=== PATIENT | male | born 1990 ===

== ENCOUNTER 2021-01-09 11:04 | Emergency (ER) | payer OTHER, SELFPAY ==
[2021-01-09 11:55] VITALS: BP 154/101; PULSE 74; RESP 18; TEMP 36.6; O2SAT 97; BMI 32.8
--- NOTE | 2021-01-09 11:58 | ED_ITS ---
HPI - Abdominal Pain General Chief Complaint: Back Pain/Injury Stated Complaint: kidney pain Time Seen by Provider: 01/09/21 11:56 Source: patient Mode of arrival: ambulatory Limitations: no limitations Related Data Allergies Allergy/AdvReac Type Severity Reaction Status Date / Time No Known Allergies Allergy Verified 01/09/21 11:55 Physical Exam Vital Signs: Vital Signs: Last Vital Signs Temp 97.9 F 01/09/21 11:55 Pulse 74 01/09/21 11:55 Resp 18 01/09/21 11:55 BP 154/101 H 01/09/21 11:55 Pulse Ox 97 01/09/21 11:55 Body Mass Index 32.8 [facility] Past Medical History Medical History (Updated 01/09/21 @ 11:57 by Mary Butler) Patient denies medical problems
[2021-01-09 13:11] LABS: Glucose Urine UA NEG (NEG); Leukocyte Esterase Urine NEG (NEG); Nitrite Urine NEG (NEG); Specific Gravity - Urine >= 1.030 (1.005-1.025); Urine Blood NEG (NEG); Urine Ketones NEG (NEG); Urine Protein TRACE MG/DL (NEG-TRACE)
[2021-01-09 13:12] LABS: Appearance Urine HAZY; Color Urine YELLOW
[2021-01-09] MEDS: Ketorolac Tromethamine 60 MG/2 ML VIAL IM (13:28)
--- NOTE | 2021-01-09 13:39 | ED.BACK ---
HPI - Back Pain/Injury General Chief Complaint: Back Pain/Injury Stated Complaint: kidney pain Time Seen by Provider: 01/09/21 11:56 Source: patient Mode of arrival: ambulatory Limitations: no limitations History of Present Illness HPI Narrative: 30 yo male here with right lower back pain x 4 days. No injury or trauma. No nausea, vomiting, diarrhea, urinary symptoms. No fevers or chills. Related Data Previous Rx's Medication Instructions Recorded cyclobenzaprine 10 mg PO TID PRN #10 tab 01/09/21 lidocaine [Lidoderm] 1 patch TOPICAL DAILY #15 ea 01/09/21 naproxen 500 mg PO BID PRN #20 tab 01/09/21 Allergies Allergy/AdvReac Type Severity Reaction Status Date / Time No Known Allergies Allergy Verified 01/09/21 11:55 Review of Systems Review of Systems: Yes all other systems are reviewed and are negative Constitutional: Constitutional: Reports no additional constitutional complaints, Denies body ache(s), Denies chills, Denies fever(s), Denies headache(s) and Denies weakness Eyes: Eyes: Reports no additional eye complaints and Denies change in vision ENT: Reports system reviewed and no additional complaints, except as documented, Denies dizziness, Denies headache(s), Denies nasal congestion, Denies nasal discharge and Denies neck pain Cardiovascular: Cardiovascular: Reports no additional cardiovascular complaints, Denies chest pain, Denies leg edema and Denies dyspnea Respiratory: Respiratory: Reports no additional respiratory complaints, Denies cough and Denies dyspnea Gastrointestinal: Gastrointestinal: Reports no additional gastrointestinal complaints, Denies abdominal pain, Denies diarrhea, Denies nausea and Denies vomiting Genitourinary: Genitourinary: Denies urinary incontinence Musculoskeletal: Musculoskeletal: Reports no additional musculoskeletal complaints, Reports back pain, Denies arthralgias, Denies joint swelling, Denies neck pain, Denies numbness and Denies tingling Integumentary/Breasts: Skin/Breast: Reports system reviewed and no additional complaints, except as docu and Denies rash Neurologic: Reports system reviewed and no additional complaints, except as documented, Denies Abnormal speech present, Denies dizziness, Denies headache(s), Denies numbness, Denies tingling and Denies weakness [facility] Past Medical History Attestation statement: The following information was validated with the patient. Source: old records reviewed and nursing notes reviewed Medical History Patient denies medical problems Social History Social History Advance Directives: No Advance Directives Information Provided: Yes Physical Exam Vital Signs: Vital Signs: Last Vital Signs Temp 97.9 F 01/09/21 11:55 Pulse 74 01/09/21 11:55 Resp 18 01/09/21 11:55 BP 154/101 H 01/09/21 11:55 Pulse Ox 97 01/09/21 11:55 Body Mass Index 32.8 Const: General: cooperative, healthy appearing, comfortable and no acute distress Orientation/consciousness: patient oriented x3 Limitations: no limitations HENMT: Head: Yes normal to inspection Ears: hearing grossly normal bilaterally General nose exam: Normal external nose present Face and sinus: Yes normal facial exam Mouth: Normal oral and palatal mucosa present Throat: Yes posterior oropharynx normal Eyes: General: appearance normal, both eyes and all related structures Pupils: Equal, round and reactive pupils present Neck: Neck: Yes normal visual inspection Chest: Chest palpation & inspection: normal inspection of the chest Resp: Effort & Inspection: normal respiratory effort Auscultation: clear to auscultation bilaterally Cardio: Rate: regular rate Rhythm: regular rhythm Peripheral pulses: Peripheral pulses 2+ throughout GI: Inspection: Yes normal to inspection Palpation (GI): Soft to palpation and nontender Auscultation: normal bowel sounds Back/Spine/Pelvis: Other: Right lumbar soft tissue tenderness with no midline tenderness, step-offs or deformities. No CVA tenderness. Pain is worsened with flexion and extension of the lumbar spine. Thoracic/Lumbar Spine: thoracic and lumbar spine normal to inspection Skin: General skin exam: no rashes or lesions noted Neuro: General: patient oriented x3, no focal motor deficits and normal sensation to monofilament Cranial nerves: Yes CN's II-XII intact bilaterally, Yes Equal, round and reactive pupils present, Yes Bilaterally intact EOM present, Yes Nystagmus not present and Yes Normal facial strength present Cognition (Neuro): normal cognition Speech: No Abnormal speech present Gait exam (Neuro): Normal gait present Motor exam (neuro): 5/5 motor strength present throughout Sensory Exam: Normal double simultaneous stimulation for sensation Deep tendon reflexes (DTR's): Right patellar reflex intensity grade: 2+ and Left patellar reflex intensity grade: 2+ Coordination: [id number] test normal and [id number] test normal Extrem: General: Yes normal to inspection Course Course Course Narrative: 30-year-old male here with complaints of right lower back pain x4 days with no injury or trauma. No incontinence, numbness or tingling, fevers or chills. No CVAT. Will check UA. -UA negative. Likely lumbar strain. Patient medicated with Toradol with improvement of pain. Will send home with analgesia, supportive care and follow-up with primary care. Reviewed worrisome signs and symptoms of when to return to the emergency department. Comfortable discharge home. MDM - Back Pain/Injury Lab Data Labs: Lab Results 01/09/21 Range/Units 12:51 Urine Color YELLOW Urine Appearance HAZY Urine pH 6.0 (5.0-8.0) Ur Specific [place] >= 1.030 H (1.005-1.025) Urine Protein TRACE (NEG-TRACE) MG/DL Urine Glucose (UA) NEG (NEG) MG/DL Urine Ketones NEG (NEG) MG/DL Urine Blood NEG (NEG) Urine Nitrite NEG (NEG) Ur Leukocyte Esterase NEG (NEG) Discharge Plan Discharge Clinical Impression: Strain of lumbar region Patient Disposition: Home, Self-Care Instructions: Low Back Strain (ED), Lower Back Exercises (ED) Additional Instructions: Heat or ice Gentle stretching No heavy lifting or bending Follow-up with primary care doctor in 5-7 days for persistent pain Prescriptions: New cyclobenzaprine 10 mg tablet 10 mg PO TID PRN (Reason: muscle spasm) Qty: 10 RF: 0 lidocaine [Lidoderm] 5 % adhesive patch,medicated 1 patch topical DAILY Qty: 15 RF: 0 naproxen 500 mg tablet 500 mg PO BID PRN (Reason: pain) Qty: 20 RF: 0 Referrals: Physician,Unknown [Primary Care Provider] - 5 days (for persistent pain) Interventions: ED Discharge Assessment Last Done: 01/09/21 13:32 Discharge Date/Time: 01/09/21 13:33
== END 2021-01-09 13:33 | disposition home or self-care (01) ==
PROVIDERS: Emergency Provider Emergency Medicine
DX: S39.012A Strain of muscle, fascia and tendon of lower back, initial encounter (principal); X58.XXXA Exposure to other specified factors, initial encounter; Y93.9 Activity, unspecified; Y92.9 Unspecified place or not applicable; Y99.9 Unspecified external cause status
CPT/HCPCS: 81003; 96372; 99283; 99284; J1885

== ENCOUNTER 2022-05-10 18:34 | Emergency (ER) | payer OTHER, SELFPAY ==
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
[2022-05-10 19:20] VITALS: BP 174/104; PULSE 76; RESP 18; TEMP 36.1; O2SAT 97; BMI 33.5
== END 2022-05-10 23:48 | disposition left against medical advice (07) ==
PROVIDERS: Emergency Provider Emergency Medicine
DX: Z04.1 Encounter for examination and observation following transport accident (principal); R07.9 Chest pain, unspecified
CPT/HCPCS: 93005; 99283

== ENCOUNTER 2024-03-14 06:58 | Inpatient (IN) | payer OTHER, SELFPAY ==
[2024-03-14 07:04] VITALS: BP 182/105; PULSE 82; RESP 16; TEMP 37; O2SAT 98; BMI 30.9
[2024-03-14 07:16] VITALS: BP 182/110; PULSE 74; RESP 16; TEMP 37; O2SAT 98
--- NOTE | 2024-03-14 07:20 | ED_ITS ---
HPI - Psych General Chief Complaint: ETOH/Substance Use Stated Complaint: crisis Time Seen by Provider: 03/14/24 07:12 Source: patient Mode of arrival: ambulatory Limitations: no limitations History of Present Illness ED Provider: ALECIA HPI Narrative: 33 yo male with PMH of opiate abuse and cocaine abuse here with c/o depression no SI and wants to stop using drugs. Has no medical complaints. Has never been through this before states it is his first time. He hasn't slept in 3 days. He wants help with depression and drug abuse. He is crying. MD complaint: feels depressed and substance abuse Onset (ago): day(s) (few) Duration: constant History of same: Yes Relieving factors: none Exacerbating factors: drug use Context: recent drug abuse Associated psychiatric symptoms: depression Associated symptoms: denies other symptoms Treatments prior to arrival: none Related Data Previous Rx's ?Medication ?Instructions ?Recorded cyclobenzaprine 10 mg tablet 10 mg PO TID PRN muscle spasm #10 01/09/21 tabs lidocaine 5 % topical patch 1 patch topical DAILY #15 ea 01/09/21 (Lidoderm) naproxen 500 mg tablet 500 mg PO BID PRN pain #20 tabs 01/09/21 Allergies Allergy/AdvReac Type Severity Reaction Status Date / Time No Known Allergies Allergy Verified 03/14/24 07:10 Review of Systems 2 Review of Systems: Constitutional : No Fever, No Chills ENT/Mouth : No Ear Pain, No Nasal Congestion, No sore throat Eyes: No Eye Pain, No Swelling, No Redness Cardiovascular : No Chest Pain, No SOB Respiratory : No Cough, No Sputum, No Dyspnea Gastrointestinal : No Nausea, No Vomiting, No Diarrhea, No Hematochezia, No Melena Genitourinary : No Dysuria, No Urinary Frequency, No Hematuria Musculoskeletal : No Myalgias Skin : No Skin Lesions, No rash Neuro : No Weakness, No Numbness, No Paresthesias, No Dizziness, No Headache Psych : positive Anxiety, positive Depression, no SI/HI Heme/Lymph: No Lymphadenopathy Endocrine : No Polyuria, No Polydipsia All other systems reviewed and are negative PMFSH Past Medical History Attestation statement: The following information was validated with the patient. Source: old records reviewed Medical History Patient denies medical problems Social History Social History (Updated 03/14/24 @ 07:28 by Adilene Ojeda DO) Alcohol intake: current Alcohol intake frequency: 3 or more drinks per day Alcohol type: beer Patient Tobacco Use Status: Current someday Tobacco user Smoked in Last 30 Days: Yes Substance Use Type: Crack/Cocaine and Opiates Substance Use Frequency: Chronic Longstanding Last Used Substance: Just Prior to Admission Advance Directives: No Advance Directives Information Provided: Yes Physical Exam 2 Vital Signs: Vital Signs: Last Vital Signs Temp 98.6 F 03/14/24 07:16 Pulse 74 03/14/24 07:16 Resp 16 03/14/24 07:16 BP 182/110 H 03/14/24 07:16 Pulse Ox 98 03/14/24 07:16 O2 Del Method Room Air 03/14/24 07:16 BMI result Body Mass Index 30.9 Appearance: Alert. Oriented X3. No acute distress. Tearful Eyes: Pupils equal, round and reactive to light. ENT: Pharynx normal. Neck: Normal inspection. Neck supple. CVS: Normal heart rate and rhythm. Pulses normal. Respiratory: No respiratory distress. Breath sounds normal. Abdomen: Soft and nontender. Skin: Skin warm and dry. Normal skin color. Normal skin turgor. Extremities: No lower extremity edema. No calf ttp Neuro: Oriented X 3. No motor deficit. No sensory deficit. CN2-12 intact Medications Administered Generic Name Dose Route Start Last Admin Trade Name Freq PRN Reason Stop Dose Admin Lorazepam 2 mg 03/14/24 07:15 03/14/24 07:30 Lorazepam 1 Mg Tablet PO 2 mg Q3H PRN Administration Anxiety Medical Decision Making Medical Decision Making MDM Narrative: 33 yo male with PMH of of opiate and cocaine abuse here with c/o depression and drug abuse wants to talk to crisis he has no SI/HI he is voluntary will obtain labs and start on ativan PRN pending CARE team. Differential Diagnosis Differential Diagnoses: The differential diagnosis associated with the presentation includes drug abuse, depression Admission/Observation Consideration of admission/observation: Escalation of care including admission/observation considered physician observation started at 729am pending CARE team Lab Data MDM Lab Attestation statement: I reviewed the patient's lab results. 03/14/24 08:00 03/14/24 08:00 Labs: Lab Results 03/14/24 Range/Units 08:00 WBC 10.0 (4.8-10.8) X10*3/uL RBC 4.86 (4.60-5.80) X10*6/uL Hgb 15.5 (14.0-18.0) g/dl Hct 43.4 (42.0-52.0) % MCV 89.3 (80.0-98.0) fL MCH 31.9 (27.0-33.0) pg MCHC 35.7 (31.0-36.0) g/dl RDW 12.4 (11.0-16.0) % Plt Count 267 (160-400) X10*3/uL MPV 10.3 (9.4-12.4) fL Immature Gran % (Auto) 0.2 (0.0-0.4) % Neut % (Auto) 62.2 (45-73) % Lymph % (Auto) 27.4 (20-40) % [place] % (Auto) 7.9 (2-11) % Eos % (Auto) 1.8 (0-4) % Baso % (Auto) 0.5 (0-2) % Lymph # (Auto) 2.7 (1.2-4.9) X10*3/uL [place] # (Auto) 0.8 (0.1-1.2) X10*3/uL Eos # (Auto) 0.2 (0.0-0.4) X10*3/uL Baso # (Auto) 0.1 (0.0-0.2) X10*3/uL Abs Immat Gran (auto) 0.02 (0.00-0.03) X10*3/uL Absolute Neuts (auto) 6.2 (2.0-8.3) x10*3/uL Absolute Nucleated RBC 0.000 (0.0-0.012) X10*3/uL Nucleated RBC % (auto) 0.0 (0.0-0.2) /100WBC Sodium 139 (135-145) mmol/L Potassium 3.4 (3.3-5.1) mmol/L Chloride 106 (96-108) mmol/L Carbon Dioxide 24 (22-29) mmol/L Anion Gap 12 (12-20) BUN 11 (9-16) mg/dL Creatinine 1.14 (0.5-1.4) mg/dL Estim Creat Clear Calc 109.2 Estimated GFR > 60 Random Glucose 126 H (60-115) mg/dL Calcium 9.4 (8.4-10.2) mg/dL Total Bilirubin 0.7 (0.0-1.0) mg/dL Direct Bilirubin 0.2 (0.0-0.5) mg/dL AST 21 (5-37) U/L ALT 14 (0-40) U/L Alkaline Phosphatase 86 (39-117) U/L Total Protein 7.0 (6.5-8.0) g/dL Albumin 4.3 (3.5-5.0) g/dL Urine Color Yellow Urine Appearance Clear Urine pH 6.0 (5.0-9.0) Ur Specific [place] 1.020 (1.005-1.025) Urine Protein Trace (Neg-Trace) mg/dL Urine Glucose (UA) 100 H (Negative) mg/dL Urine Ketones Negative (Negative) mg/dL Urine Blood Negative (Negative) Urine Nitrite Negative (Negative) Ur Leukocyte Esterase Negative (Negative) Urine RBC 0-2 (0-2) /HPF Urine WBC 0-5 (0-5) /HPF Ur Squamous Epith Cells 0-2 (0-2) /HPF Urine Bacteria None Seen (None Seen) Hyaline Casts 0-2 (0-2) /LPF Urine Opiates Screen Not Detected (Not Detect) Ur Buprenorphine Scrn Positive H (Not Detect) ng/mL Ur Oxycodone Screen Not Detected (Not Detect) ng/mL Urine Methadone Screen Not Detected (Not Detect) ng/mL Urine Fentanyl Screen POSITIVE H (Not Detect) Ur Barbiturates Screen Not Detected (Not Detect) Ur Phencyclidine Scrn Not Detected (Not Detect) Ur Amphetamines Screen Not Detected (Not Detect) U Benzodiazepines Scrn Not Detected (Not Detect) Urine Cocaine Screen POSITIVE H (Not Detect) U Marijuana (THC) Screen POSITIVE H (Not Detect) Ethyl Alcohol < 10 mg/dL Independent Interpretation I performed an independent interpretation of an: EKG Interpretation: Rate: 65 Rhythm: NSR [place]: left, LVH Normal P waves. Normal YASMEEN. Normal QRS complex. ST T wave : no KIRIT, normal qTC: 524 prior studies: slightly prolonged qtc The study has been interpreted contemporaneously by me. . External Record Review External record reviewed: Outpatient record Discharge Plan Discharge Clinical Impression: Active substance abuse Depression Qualifiers: Depression Type: unspecified Qualified Code(s): F32.A - Depression, unspecified Patient Disposition: Admitted As Inpatient Print Language: Tajik
[2024-03-14] MEDS: LORazepam 1 MG TABLET 2 MG PO (07:30)
--- NOTE | 2024-03-14 07:32 | PC.NURSE ---
Pt comes to ED today with c/o ETOH and drug use along with difficulty managing his MH. He denies SI/HI or history of at this time. He reports using ETOH, cocaine, and percocets daily (including just prior to admission) to cope. Pt is A&Ox3 and cooperative. HTN noted, Pt is asymptomatic and he reports this is a baseline for him. Dr Ojeda notified. NAD at this time. Security notified for cell changer process.
[2024-03-14 08:04] LABS: MANUAL DIFF FLAG NO
[2024-03-14 08:08] LABS: Basophils Absolute Auto 0.1 X10*3/uL (0.0-0.2); Basophils Percent Auto 0.5 % (0-2); Eosinophils Absolute Auto 0.2 X10*3/uL (0.0-0.4); Eosinophils Percent Auto 1.8 % (0-4); Hematocrit 43.4 % (42.0-52.0); Hemoglobin 15.5 g/dl (14.0-18.0); Imm Gran Abs Auto 0.02 X10*3/uL (0.00-0.03); Imm Gran Pct Auto 0.2 % (0.0-0.4); Lymphocytes Absolute Auto 2.7 X10*3/uL (1.2-4.9); Lymphocytes Percent Auto 27.4 % (20-40); Mean Corpuscular HGB Conc 35.7 g/dl (31.0-36.0); Mean Corpuscular Hemoglobin 31.9 pg (27.0-33.0); Mean Corpuscular Volume 89.3 fL (80.0-98.0); Mean Platelet Volume 10.3 fL (9.4-12.4); Monocytes Absolute Auto 0.8 X10*3/uL (0.1-1.2); Monocytes Percent Auto 7.9 % (2-11); Neutrophils Absolute Auto 6.2 x10*3/uL (2.0-8.3); Neutrophils Percent Auto 62.2 % (45-73); Platelet Count 267 X10*3/uL (160-400); Red Blood Count 4.86 X10*6/uL (4.60-5.80); Red Cell Distribution Width 12.4 % (11.0-16.0)
[2024-03-14 08:16] LABS: Amphetamine Screen Urine Not Detected (Not Detect); Barbiturates, Urine Not Detected (Not Detect); Benzodiazepines Screen Urine Not Detected (Not Detect); Buprenorphine Scr Positive (Not Detect); Cannabinoid Screen Urine POSITIVE (Not Detect); Cocaine Screen Urine POSITIVE (Not Detect); Fentanyl, urine POSITIVE (Not Detect); Methadone Screen, Urine Not Detected (Not Detect); Opiate Screen Urine Not Detected (Not Detect); Oxycodone Screen Urine Not Detected (Not Detect); Phencyclidine Screen Urine Not Detected (Not Detect)
[2024-03-14 08:18] LABS: Appearance Urine Clear; Color Urine Yellow; Glucose Urine UA 100 mg/dL (Negative); Leukocyte Esterase Urine Negative (Negative); Nitrite Urine Negative (Negative); Urine Blood Negative (Negative); Urine Ketones Negative (Negative); Urine Protein Trace mg/dL (Neg-Trace)
[2024-03-14 08:23] LABS: Alanine Aminotransferase 14 U/L (0-40); Albumin Level 4.3 g/dL (3.5-5.0); Alkaline Phosphatase 86 U/L (39-117); Anion Gap 12 (12-20); Aspartate Amino Transferase 21 U/L (5-37); Bacteria Urine None Seen (None Seen); Bilirubin Direct 0.2 mg/dL (0.0-0.5); Bilirubin Total 0.7 mg/dL (0.0-1.0); Blood Urea Nitrogen 11 mg/dL (9-16); Calcium 9.4 mg/dL (8.4-10.2); Carbon Dioxide 24 mmol/L (22-29); Chloride 106 mmol/L (96-108); Creatinine Clr Calc Pharmacy 109.2; Estimated Glomerular Filt Rate > 60; Ethanol < 10 mg/dL; Glucose Random 126 mg/dL (60-115); Hyaline Casts Urine 0-2 /LPF (0-2); Potassium 3.4 mmol/L (3.3-5.1); RBC Urine 0-2 /HPF (0-2); Sodium 139 mmol/L (135-145); Squamous Epithelial Cell Urine 0-2 /HPF (0-2); WBC Urine 0-5 /HPF (0-5)
--- NOTE | 2024-03-14 10:13 | ECG_ITS ---
Test Reason : CHECK QT INTERVAL Blood Pressure : / mmHG Vent. Rate : 065 BPM Atrial Rate : 065 BPM P-R Int : 154 ms QRS Dur : 094 ms QT Int : 504 ms P-R-T Axes : 039 -09 026 degrees QTc Int : 524 ms Normal sinus rhythm Minimal voltage criteria for LVH, may be normal variant ( R in aVL ) Cannot rule out Inferior infarct , age undetermined Prolonged QT Abnormal ECG When compared to the previous EKG of 10 may 2022, QT prolonged. Referred By: Adilene Ojeda Electronically Signed By:DANIEL CARR
--- NOTE | 2024-03-14 12:00 | PC.NURSE ---
PT CAME OVER FROM 6h TO BH1, THIS NURSE TOOK OVER CARE AT 1145AM. PT A&O, AMBULATING INDEPENDENTLY, RR EQUAL/NON LABORED, PT INPT BEDSEARCH
[2024-03-14 14:25] VITALS: BP 188/116; PULSE 78; RESP 13; TEMP 36.6; O2SAT 98
[2024-03-14 14:44] VITALS: BP 188/116
[2024-03-14] MEDS: cloNIDine HCL 0.1 MG TABLET PO (14:44)
[2024-03-14 15:06] LABS: Magnesium 2.4 mg/dL (1.6-2.6)
[2024-03-14 15:37] LABS: Magnesium 2.5 mg/dL (1.6-2.6)
[2024-03-14 15:45] LABS: Troponin-I High Sensitivity 9.1 ng/L (<3.5-35.0)
[2024-03-14] MEDS: Potassium Chloride ER 20 MEQ TAB.ER.PRT PO (15:57)
[2024-03-14 16:08] VITALS: BP 138/78; PULSE 64; RESP 19; TEMP 36.7; O2SAT 97
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
[2024-03-14 17:48] VITALS: BP 142/93; PULSE 65; RESP 16; TEMP 36.8; O2SAT 98
[2024-03-14 17:49] VITALS: BMI 30.1
--- NOTE | 2024-03-14 19:22 | PC.NURSE ---
This is the 1st admission for this 33 y.o. male to [facility] at [facility]. Referred by [facility] Care Team with Dx of Unspecified Opioid Use Disorder, Cocaine Use Disorder, Severe, Unspecified Psychotic Disorder, Unspecified Depressive Disorder. Nurse to nurse done prior to admission with [facility] ED Pod. Conditional Voluntary signed after meeting with provider, Yolette Estrella. Arrived on unit at 1728 and placed on 15 min safety checks. Medical issues: HTN, prolonged QT. Tox screen positive for Buprenorphine, Fentanyl, Cocaine, Marijuana. ETOH <10. PT reports use of all meds listed and Percocet prescribed and from street. Reports daily ETOH use. Reports last substance and ETOH use this am at 0500 prior to coming into ED. Denies current withdrawal symptoms. Suboxone films found under sole of sneaker. Suboxone not prescribed. Reports he utilizes Suboxone to decrease AH. Precipitating events to admission: self presented to [facility] ED with report of depression substance use, cocaine and opiates. Initially denied SI/HI, reported passive SI when meeting with Care Team. Denies SI/HI at time of admission. Per crisis assessment pt reported paranoia at home believing people were coming to murder him and his family. Denies this at time of admission. Declined to report stressor to admission, but states he has one. Concerned upon admission to unit that there are people he knows from the streets here. States he wanted to be hospitalized out of states so he would not recognize anyone. Vague with responses, poor concentration, rested eyes frequently. Stated he had not slept in in 3 days. Reports 30 lb wt loss in 2 months. States this is due to cocaine use. Meds verified with [facility] pharmacy-not picked up and placed back on shelf on 03/06/24. [facility] unable to state last brain picker date; Mak Summers, prescriber, informed. No meds filled at [facility] since 09/2023.
[2024-03-15 07:00] VITALS: BMI 29.6
--- NOTE | 2024-03-15 07:00 | ECG_ITS ---
Test Reason : check qtc Blood Pressure : / mmHG Vent. Rate : 065 BPM Atrial Rate : 065 BPM P-R Int : 146 ms QRS Dur : 080 ms QT Int : 436 ms P-R-T Axes : 061 014 075 degrees QTc Int : 453 ms Normal sinus rhythm Nonspecific ST and T wave abnormality Abnormal ECG When compared with ECG of 14-MAR-2024 10:30, QT has shortened Referred By: Yolette Estrella Electronically Signed By:KOLBY BAKER
[2024-03-15 07:54] VITALS: BP 189/111; PULSE 58; RESP 18; TEMP 36.8; O2SAT 99
[2024-03-15] MEDS: cloNIDine HCL 0.1 MG TABLET PO ×2 (09:22→21:18)
[2024-03-15] MEDS: Thiamine HCL 100 MG TABLET PO (09:23)
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
[2024-03-15 11:41] VITALS: BP 170/93; PULSE 68
[2024-03-15 12:00] VITALS: PULSE 60
[2024-03-15] MEDS: LORazepam 1 MG TABLET PO ×2 (12:01→21:19)
--- NOTE | 2024-03-15 12:50 | HO.PSYCHPN ---
Subjective Subjective Date of Service: 03/15/24 Reason For Visit: Si Subjective Notes: Conditional Voluntary Healthcare Proxy: No Guardianship: No Medical Problems Affecting Mental Status: No Interim History: Pt is asleep when seen. He awakens easily, reports he would prefer to sleep. He presents without any distress and appears comfortable and confirms this when asked. Currently, he denies questions or concerns. Lorazepam ordered with CIWA today. Pt is hypertensive 189/111, 170/93 with earlier reports of chest pain, helped with clonidine, CIWA of 9. EKG vent rate 65, QTc [address]-T wave abn Medication Compliance: Yes Side effects from medications: No Attending Groups: No Review of Systems Monitoring BP Medical Review of Systems: unchanged Review of Systems Review of Systems Yes Unobtainable due to mental status Mental Status Exam Mental Status Exam Patient Appearance: Fatigued Patient Orientation: Person, Place and Situation Level of Consciousness: Drowsy and Sedated Patient Behavior: Talkative and Fatigued Mood Description: Calm Affect Description: Calm Patient Cognition Impaired: No Ability to Follow Directions: Fair Speech Pattern: Spontaneous Speech Hallucinations: None Delusions: Not Present Thought Content: positive for Covert and positive for Circumstantial Judgement: Fair Diagnostics Vital Signs (24Hr): Vital Signs - 24 hr 03/14/24 14:25 03/14/24 14:44 03/14/24 16:08 Temperature 97.9 F 98.1 F Pulse Rate 78 64 Respiratory Rate 13 19 Blood Pressure 188/116 H 188/116 H 138/78 Pulse Oximetry 98 97 Oxygen Delivery Method Room Air Room Air 03/14/24 17:48 03/15/24 07:54 03/15/24 11:41 Temperature 98.3 F 98.3 F Pulse Rate 65 58 68 Respiratory Rate 16 18 Blood Pressure 142/93 H 189/111 H 170/93 H Pulse Oximetry 98 99 Oxygen Delivery Method Room Air Room Air BMI result Body Mass Index 30.1 Labs 03/14/24 08:00 03/14/24 08:00 Labs: Laboratory Results - last 48 hr 03/14/24 03/14/24 03/14/24 08:00 14:54 14:55 WBC 10.0 RBC 4.86 Hgb 15.5 Hct 43.4 MCV 89.3 MCH 31.9 MCHC 35.7 RDW 12.4 Plt Count 267 MPV 10.3 Immature Gran % (Auto) 0.2 Neut % (Auto) 62.2 Lymph % (Auto) 27.4 [place] % (Auto) 7.9 Eos % (Auto) 1.8 Baso % (Auto) 0.5 Lymph # (Auto) 2.7 [place] # (Auto) 0.8 Eos # (Auto) 0.2 Baso # (Auto) 0.1 Abs Immat Gran (auto) 0.02 Absolute Neuts (auto) 6.2 Absolute Nucleated RBC 0.000 Nucleated RBC % (auto) 0.0 Sodium 139 Potassium 3.4 Chloride 106 Carbon Dioxide 24 Anion Gap 12 BUN 11 Creatinine 1.14 Estim Creat Clear Calc 109.2 Estimated GFR > 60 Random Glucose 126 H Calcium 9.4 Magnesium 2.4 2.5 Total Bilirubin 0.7 Direct Bilirubin 0.2 AST 21 ALT 14 Alkaline Phosphatase 86 Troponin I High Sens 9.1 Total Protein 7.0 Albumin 4.3 Urine Color Yellow Urine Appearance Clear Urine pH 6.0 Ur Specific [place] 1.020 Urine Protein Trace Urine Glucose (UA) 100 H Urine Ketones Negative Urine Blood Negative Urine Nitrite Negative Ur Leukocyte Esterase Negative Urine RBC 0-2 Urine WBC 0-5 Ur Squamous Epith Cells 0-2 Urine Bacteria None Seen Hyaline Casts 0-2 Urine Opiates Screen Not Detected Ur Buprenorphine Scrn Positive H Ur Oxycodone Screen Not Detected Urine Methadone Screen Not Detected Urine Fentanyl Screen POSITIVE H Ur Barbiturates Screen Not Detected Ur Phencyclidine Scrn Not Detected Ur Amphetamines Screen Not Detected U Benzodiazepines Scrn Not Detected Urine Cocaine Screen POSITIVE H U Marijuana (THC) Screen POSITIVE H Ethyl Alcohol < 10 Medications Medications Current Medications Acetaminophen (Acetaminophen 325 Mg Tablet) 1,000 mg PO Q6H PRN PRN Reason: Pain, Mild (Pain Scale 1-3) Al Hydroxide/Mg Hydroxide (Magnesium Hydrox/Alum Hydrox 30 Ml Oral.Susp) 30 ml PO Q6H PRN PRN Reason: Heartburn/Nausea Clonidine HCl (Clonidine Hcl 0.1 Mg Tablet) 0.1 mg PO BID [facility]; Protocol Last Admin: 03/15/24 09:22 Dose: 0.1 mg Cyclobenzaprine HCl (Cyclobenzaprine Hcl 10 Mg Tablet) 10 mg PO TID PRN PRN Reason: spasm Hydroxyzine HCl (Hydroxyzine Hcl 25 Mg Tablet) 25 mg PO Q6H PRN PRN Reason: Anxiety Ibuprofen (Ibuprofen 600 Mg Tablet) 600 mg PO Q6H PRN PRN Reason: Pain, Moderate(Pain Scale 4-6) Lorazepam (Lorazepam 1 Mg Tablet) 1 mg PO Q2H PRN PRN Reason: CIWA 6-10 Last Admin: 03/15/24 12:01 Dose: 1 mg Lorazepam (Lorazepam 1 Mg Tablet) 2 mg PO Q2H PRN PRN Reason: CIWA 11-16 Magnesium Hydroxide (Milk Of Magnesia 30 Ml Oral.Susp) 30 ml PO DAILY PRN PRN Reason: Constipation Nicotine (Nicotine 21 Mg Patch.Td24) 21 mg TRANSDERMA DAILY PRN PRN Reason: nicotine cravings Olanzapine (Olanzapine Odt 10 Mg Tab.Rapdis) 5 mg TRANSLINGU Q6H PRN PRN Reason: agitation or severe anxiety Thiamine HCl (Thiamine Hcl 100 Mg Tablet) 100 mg PO DAILY MERARY Last Admin: 03/15/24 09:23 Dose: 100 mg Trazodone HCl (Trazodone Hcl 50 Mg Tablet) 50 mg PO BEDTIME MRX1 PRN PRN Reason: Insomnia Allergies Allergies Allergy/AdvReac Type Severity Reaction Status Date / Time No Known Allergies Allergy Verified 03/14/24 07:10 Assessment & Plan Assessment & Plan (1) MDD (major depressive disorder), recurrent, severe, with psychosis: Status: Acute Code(s): F33.3 - Major depressive disorder, recurrent, severe with psychotic symptoms (2) Opioid use disorder, moderate, dependence: Status: Acute Code(s): F11.20 - Opioid dependence, uncomplicated (3) Cocaine use disorder, moderate, dependence: Status: Acute Code(s): F14.20 - Cocaine dependence, uncomplicated Plan Mr. Cohn is a 33 year-old male with hx of cocaine and opioid use disorder. He self presented to [facility] reporting increased substance use mainly cocaine and opioids. He does report some alcohol use 2 beers daily, but denies hx of alcohol withdrawal. This is his first inpatient psychiatric admission. It also appears that as substance use has increased, pt is now experiencing psychosis and paranoid- this may be transient and mostly substance induce although possibility of psychosis and delusions of becoming more permanent. Medical work up does show Qtc prolongation 514, K repleated but ideally to keep>4, Mg is 2.5. troponins were 9, he denies chest pain. His BP has also been quiet elevated SBP 180's suspect this mostly related to cocaine use rather than alcohol withdrawal. start clonidine 0.1mg po BID. Pt is interested in addiction medicine consult to discuss MAT. He reports he has never been on either buprenorphine nor methadone. PLAN 1. Admit to M3, CV, 15 minutes checks for safety 2. will not continue oxycodone here on the unit, but instead will wait for addiction medicine consult to recommend MAT 3. clonidine 0.1mg po BID; olanzapine 5mg po q6h prn agitationy, may want to consider scheduling antipsychotic if more consistent psychosis and delusinal content noted 4. obtain collateral information 5. aftercare planning. 03/15- Continue tx. EKG improved with clonidine Lorazepam CIWA, consider tapering 03/16. Reason for continued inpatient stay Substantial Risk for: rapid decompensation Time Spent With Patient Time: Total time managing care of this patient today ____ minutes.
--- NOTE | 2024-03-15 13:19 | MHC.CLN ---
RE: CONSULT HT WT 216# IBW 172#+/-10%, BMI 30.1 PT IS 126% IBW RANGE INDICATES OBESE FOR HT WT HX REVEALS: CURRENT 98KG (03/14/24) PREVIOUS WT 108KG (05/10/22) PT WITH 9% NONSIGNIFICANT WT LOSS X 2 YEARS PT REPORTED 30# WT LOSS IN 2 MONTHS AND STATED WT LOSS D/T COCAINE USE. PT DOES NOT APPEAR MALNOURISHED PT WITH POLYSUBSTANCE ABUSE (OPIOIDS, COCAINE, ETOH AND +FENTANYL) MAY BE CONTRIBUTOR TO WT LOSS REGULAR DIET IN PLACE PLAN: MONITOR PO INTAKE CLOSELY IF PO INTAKE <25% X3DAYS; RECOMMEND ADDING NUTRITION SUPPLEMENT PT IS OF LOW NUTRITION RISK AT THIS TIME
--- NOTE | 2024-03-15 14:58 | HO.ADDICT_ITS ---
History of Present Illness Date of Service: 03/15/2024 Chief Complaint: Si Reason for Consult: substance use Sources of Information: patient interviewed and chart reviewed HPI Narrative: Patient is a 33 year old male admitted to unit with worsening depression and suicidal ideation. Consult requested to address cocaine and opiate use. Patient seen on M3 with senior revenue accountant. Awake, alert, engaged in interview. Pressured speech, long winded and tangential. Requiring frequent redirection from t/w to answer questions. 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 He reports he has been using 1-2 8 balls of cocaine IN daily. Started using cocaine approx 8 months ago Also using fentanyl pressed pills -which he states are percocets, but knows they are actually pressed pills. Reports he started using percocet about 2 years ago after he fell 3 stories and was experiencing worsening pain. He bought percocet from someone who was prescribed them, then became nervous about getting in trouble so he started to buy pressed pills. He states he takes 3 10mg tabs orally every day, although over the last week, has been taking 30mg tabs. Denies any history of IVDU, or overdose. Denies any history of treatment including MAT, however [facility] shows that patient was prescribed Suboxone in 2021. At time of admission patient was found to have suboxone film(s) in his shoes. When asked how much he was taking and how often, he smiled and said he does't understand suboxone because he has never taken it before. UDS +bupe. Denies any history of precipitated withdrawal when he did take suboxone recently. Longest period with no opiate use is 4 days, then he resumes use due to body aches and joint pain. Reports 1-2 beers daily, and states that he is never intoxicated. Denies any history of alcohol withdrawal Denies any family history of substance use He is reporting desire for treatment and says several times during interview, if you are going to let me out after 3 days, don't even bother with your medicine because I am going to go back to the same thing . At time of interview he expressed desire to seek extended treatment for substance use. He denies any withdrawal sx, and appears comfortable during interview. Last use reported to be the day he presented to ED Past Psychiatric History: Inpt: none prior OP: none Past medication trial: denies Hx of suicide attempts: denies Review of Systems Constitutional: Reports as per HPI Diagnostics Vital Signs (24Hr): Vital Signs - 24 hr 03/14/24 16:08 03/14/24 17:48 03/15/24 07:54 Temperature 98.1 F 98.3 F 98.3 F Pulse Rate 64 65 58 Respiratory Rate 19 16 18 Blood Pressure 138/78 142/93 H 189/111 H Pulse Oximetry 97 98 99 Oxygen Delivery Method Room Air Room Air Room Air 03/15/24 11:41 Temperature Pulse Rate 68 Respiratory Rate Blood Pressure 170/93 H Pulse Oximetry Oxygen Delivery Method BMI result Body Mass Index 29.6 Labs 03/14/24 08:00 03/14/24 08:00 Labs: Laboratory Results - last 48 hr 03/14/24 03/14/24 03/14/24 08:00 14:54 14:55 WBC 10.0 RBC 4.86 Hgb 15.5 Hct 43.4 MCV 89.3 MCH 31.9 MCHC 35.7 RDW 12.4 Plt Count 267 MPV 10.3 Immature Gran % (Auto) 0.2 Neut % (Auto) 62.2 Lymph % (Auto) 27.4 [place] % (Auto) 7.9 Eos % (Auto) 1.8 Baso % (Auto) 0.5 Lymph # (Auto) 2.7 [place] # (Auto) 0.8 Eos # (Auto) 0.2 Baso # (Auto) 0.1 Abs Immat Gran (auto) 0.02 Absolute Neuts (auto) 6.2 Absolute Nucleated RBC 0.000 Nucleated RBC % (auto) 0.0 Sodium 139 Potassium 3.4 Chloride 106 Carbon Dioxide 24 Anion Gap 12 BUN 11 Creatinine 1.14 Estim Creat Clear Calc 109.2 Estimated GFR > 60 Random Glucose 126 H Calcium 9.4 Magnesium 2.4 2.5 Total Bilirubin 0.7 Direct Bilirubin 0.2 AST 21 ALT 14 Alkaline Phosphatase 86 Troponin I High Sens 9.1 Total Protein 7.0 Albumin 4.3 Urine Color Yellow Urine Appearance Clear Urine pH 6.0 Ur Specific [place] 1.020 Urine Protein Trace Urine Glucose (UA) 100 H Urine Ketones Negative Urine Blood Negative Urine Nitrite Negative Ur Leukocyte Esterase Negative Urine RBC 0-2 Urine WBC 0-5 Ur Squamous Epith Cells 0-2 Urine Bacteria None Seen Hyaline Casts 0-2 Urine Opiates Screen Not Detected Ur Buprenorphine Scrn Positive H Ur Oxycodone Screen Not Detected Urine Methadone Screen Not Detected Urine Fentanyl Screen POSITIVE H Ur Barbiturates Screen Not Detected Ur Phencyclidine Scrn Not Detected Ur Amphetamines Screen Not Detected U Benzodiazepines Scrn Not Detected Urine Cocaine Screen POSITIVE H U Marijuana (THC) Screen POSITIVE H Ethyl Alcohol < 10 Mental Status Exam Mental Status Exam Patient Appearance: Appropriate (hospital attire) Level of Consciousness: Awake and Alert Patient Behavior: Talkative and Cooperative Mood Description: Expansive Affect Description: Expansive Speech Pattern: Excessive, Animated and Pressured Medications Medications Current Medications Acetaminophen (Acetaminophen 325 Mg Tablet) 1,000 mg PO Q6H PRN PRN Reason: Pain, Mild (Pain Scale 1-3) Al Hydroxide/Mg Hydroxide (Magnesium Hydrox/Alum Hydrox 30 Ml Oral.Susp) 30 ml PO Q6H PRN PRN Reason: Heartburn/Nausea Clonidine HCl (Clonidine Hcl 0.1 Mg Tablet) 0.1 mg PO BID COUNTS INCLUDE 234 BEDS AT THE [facility]; Protocol Last Admin: 03/15/24 09:22 Dose: 0.1 mg Cyclobenzaprine HCl (Cyclobenzaprine Hcl 10 Mg Tablet) 10 mg PO TID PRN PRN Reason: spasm Hydroxyzine HCl (Hydroxyzine Hcl 25 Mg Tablet) 25 mg PO Q6H PRN PRN Reason: Anxiety Ibuprofen (Ibuprofen 600 Mg Tablet) 600 mg PO Q6H PRN PRN Reason: Pain, Moderate(Pain Scale 4-6) Lorazepam (Lorazepam 1 Mg Tablet) 1 mg PO Q2H PRN PRN Reason: CIWA 6-10 Last Admin: 03/15/24 12:01 Dose: 1 mg Lorazepam (Lorazepam 1 Mg Tablet) 2 mg PO Q2H PRN PRN Reason: CIWA 11-16 Magnesium Hydroxide (Milk Of Magnesia 30 Ml Oral.Susp) 30 ml PO DAILY PRN PRN Reason: Constipation Nicotine (Nicotine 21 Mg Patch.Td24) 21 mg TRANSDERMA DAILY PRN PRN Reason: nicotine cravings Olanzapine (Olanzapine Odt 10 Mg Tab.Rapdis) 5 mg TRANSLINGU Q6H PRN PRN Reason: agitation or severe anxiety Thiamine HCl (Thiamine Hcl 100 Mg Tablet) 100 mg PO DAILY COUNTS INCLUDE 234 BEDS AT THE [facility] Last Admin: 03/15/24 09:23 Dose: 100 mg Trazodone HCl (Trazodone Hcl 50 Mg Tablet) 50 mg PO BEDTIME MRX1 PRN PRN Reason: Insomnia Allergies Allergies Allergy/AdvReac Type Severity Reaction Status Date / Time No Known Allergies Allergy Verified 03/14/24 07:10 Assessment & Plan Assessment & Plan (1) Opioid use disorder, moderate, dependence: Status: Acute Code(s): F11.20 - Opioid dependence, uncomplicated Assessment and Plan: * not yet in withdrawal * COWS ordered q 4 hours * comfort medications as needed * will reassess in AM and start suboxone when appropriate (2) Cocaine use disorder, moderate, dependence: Status: Acute Code(s): F14.20 - Cocaine dependence, uncomplicated Assessment and Plan: * encouraged to rest/sleep * discussed stimulant withdrawal sx * senior revenue accountant to follow up in AM Total time managing care of this patient today __45__ minutes. [facility] Past Medical History Medical History Patient denies medical problems Social History Social History (Updated 03/14/24 @ 07:28 by Adilene Ojeda DO) Household Members: Spouse and Family Household Members Other:: , 2 sons, 3 daughters and 1 granddaughter Housing: House Do you presently have visiting nurse or other home services: No Alcohol intake: current Alcohol intake frequency: 3 or more drinks per day Alcohol type: beer Patient Tobacco Use Status: Current everyday Tobacco user Tobacco use type: Cigarette Cigarette Packs Per Day: 1 Cigarettes Per Day: 20.0 Years Smoked: 15 Smoked in Last 30 Days: Yes Patient Interested in Nicotine Replacement: Yes (patch and gum) Patient Given Instructions on How to Stop Smoking: No (declined) Second Hand Smoke Exposure: Yes (people who smoke around him) Use of substances other than those prescribed or required for medical reasons: Yes Substance Use Type: Crack/Cocaine and Marijuana Substance Use Type Other:: Percocet, Fentanyl, Buprenorphine Substance Use Frequency: Chronic Longstanding Last Used Substance: Hours (ago) Last Used Substance Other:: 0500 03/14/24 Currently Displaying Signs/Symptoms of Drug Intoxication Withdrawal: No Any prior treatment program specific to substance use: Yes Have you been hit, kicked, punched, or otherwise hurt by someone within the past year? If so, by whom?: No Do you feel safe in your current relationship?: Yes Is there a partner from a previous relationship who is making you feel unsafe now?: No Are you made to feel afraid or neglected: No Advance Directives: No Advance Directives Information Provided: Yes Do you have thoughts of harming others: None Do you have a plan to hurt others: No Plan Recently lost weight without trying: Yes How much weight loss: 24-33 pounds Eating poorly because of decreased appetite: No Nutrition screen score: 5 Nutrition Risks: No Nutritional Risk Poor oral hygiene: No service: No Sexual orientation: Straight/Heterosexual
[2024-03-15 16:00] VITALS: PULSE 62
[2024-03-15 20:00] VITALS: PULSE 66
[2024-03-15 21:00] VITALS: BP 160/90; PULSE 66; RESP 16; TEMP 36.4; O2SAT 98
[2024-03-15] MEDS: Cyclobenzaprine HCl 10 MG TABLET PO (21:18)
[2024-03-15] MEDS: traZODone HCL 50 MG TABLET PO (21:18)
[2024-03-15] MEDS: hydrOXYzine HCL 25 MG TABLET PO (21:18)
[2024-03-15] MEDS: Ibuprofen 600 MG TABLET PO (21:19)
[2024-03-16] VITALS (11 sets, daily range): BP systolic 142–188; BP diastolic 74–116; PULSE 60–77; RESP 12–16; TEMP 36.9; O2SAT 97–98
[2024-03-16] MEDS: cloNIDine HCL 0.1 MG TABLET PO ×2 (09:23→22:58)
[2024-03-16] MEDS: Thiamine HCL 100 MG TABLET PO (09:24)
[2024-03-16] MEDS: Folic Acid 1 MG TABLET PO (09:24)
[2024-03-16] MEDS: Multivitamin TABLET 1 TAB PO (09:24)
[2024-03-16] MEDS: LORazepam 1 MG TABLET PO ×3 (09:52→22:58)
--- NOTE | 2024-03-16 10:54 | PC.NURSE ---
Pt reported increased withdrawal symptoms this AM including headache, chills, and minor diaphoresis. Pt BP at 0820: 162/91. When RN rechecked BP at 0922, BP elevated to 182/116. Patient denied hypertensive symptoms including CP, SOB, dizziness, or worsening headache. CIWA score: 6. COWS: 3. RN administered 1mg Ativan PRN, per CIWA scale protocol. Pt also took 0.1mg Clonidine as scheduled. Provider notified of elevated blood pressure and medication. Upon recheck with manual cuff at 1040, BP decreased to 142/92.
--- NOTE | 2024-03-16 11:47 | HO.PSYCHPN ---
Subjective Subjective Date of Service: 03/16/24 Reason For Visit: Si Subjective Notes: Conditional Voluntary Healthcare Proxy: No Guardianship: No Medical Problems Affecting Mental Status: Yes (HTN) Interim History: Detox continues with HTN- 162/91;182/116;142/92; 188/107. Hospitalist consult requested for HTN mgt. P 60-68, CIWA 0-7, COWS 0-4. Pt resting, appears comfortable. Mid afternoon engaged per team report, wanting to interact with family and do a video call to see his daughter graduate. Medication Compliance: Yes Side effects from medications: No Review of Systems Acute medical concerns: Yes HTN, Hospitalist consult ordered Medical Review of Systems: changed Review of Systems: as noted Review of Systems Review of Systems deotxing Mental Status Exam Mental Status Exam Patient Appearance: Appropriate (hospital attire) Patient Orientation: Person, Place and Situation Level of Consciousness: Awake and Alert Patient Behavior: Talkative and Cooperative Mood Description: Withdrawn Affect Description: Flat Patient Cognition Impaired: No Ability to Follow Directions: Fair Speech Pattern: Spontaneous Speech Memory Description: Episodic Impaired Hallucinations: None Delusions: Not Present Thought Process: Goal Oriented Thought Content: positive for [place] and positive for Circumstantial Judgement: Fair Diagnostics Vital Signs (24Hr): Vital Signs - 24 hr 03/15/24 21:00 03/16/24 08:20 03/16/24 09:22 Temperature 97.6 F 98.4 F Pulse Rate 66 60 64 Respiratory Rate 16 12 16 Blood Pressure 160/90 H 162/91 H 182/116 H Pulse Oximetry 98 98 Oxygen Delivery Method Room Air Room Air 03/16/24 10:40 Temperature Pulse Rate 68 Respiratory Rate 16 Blood Pressure 142/92 H Pulse Oximetry Oxygen Delivery Method BMI result Body Mass Index 29.6 Labs 03/14/24 08:00 03/14/24 08:00 Labs: Laboratory Results - last 48 hr 03/14/24 03/14/24 03/14/24 08:00 14:54 14:55 Magnesium 2.4 2.5 Troponin I High Sens 9.1 Medications Medications Current Medications Acetaminophen (Acetaminophen 325 Mg Tablet) 1,000 mg PO Q6H PRN PRN Reason: Pain, Mild (Pain Scale 1-3) Al Hydroxide/Mg Hydroxide (Magnesium Hydrox/Alum Hydrox 30 Ml Oral.Susp) 30 ml PO Q6H PRN PRN Reason: Heartburn/Nausea Clonidine HCl (Clonidine Hcl 0.1 Mg Tablet) 0.1 mg PO BID [facility]; Protocol Last Admin: 03/16/24 09:23 Dose: 0.1 mg Cyclobenzaprine HCl (Cyclobenzaprine Hcl 10 Mg Tablet) 10 mg PO TID PRN PRN Reason: spasm Last Admin: 03/15/24 21:18 Dose: 10 mg Folic Acid (Folic Acid 1 Mg Tablet) 1 mg PO DAILY [facility] Last Admin: 03/16/24 09:24 Dose: 1 mg Hydroxyzine HCl (Hydroxyzine Hcl 25 Mg Tablet) 25 mg PO Q6H PRN PRN Reason: Anxiety Last Admin: 03/15/24 21:18 Dose: 25 mg Ibuprofen (Ibuprofen 600 Mg Tablet) 600 mg PO Q6H PRN PRN Reason: Pain, Moderate(Pain Scale 4-6) Last Admin: 03/15/24 21:19 Dose: 600 mg Lorazepam (Lorazepam 1 Mg Tablet) 1 mg PO Q2H PRN PRN Reason: CIWA 6-10 Last Admin: 03/16/24 09:52 Dose: 1 mg Lorazepam (Lorazepam 1 Mg Tablet) 2 mg PO Q2H PRN PRN Reason: CIWA 11-16 Magnesium Hydroxide (Milk Of Magnesia 30 Ml Oral.Susp) 30 ml PO DAILY PRN PRN Reason: Constipation Multivitamins/Vitamin C (Multivitamin Tablet) 1 tab PO DAILY [facility] Last Admin: 03/16/24 09:24 Dose: 1 tab Nicotine (Nicotine 21 Mg Patch.Td24) 21 mg TRANSDERMA DAILY PRN PRN Reason: nicotine cravings Olanzapine (Olanzapine Odt 10 Mg Tab.Rapdis) 5 mg TRANSLINGU Q6H PRN PRN Reason: agitation or severe anxiety Thiamine HCl (Thiamine Hcl 100 Mg Tablet) 100 mg PO DAILY [facility] Last Admin: 03/16/24 09:24 Dose: 100 mg Trazodone HCl (Trazodone Hcl 50 Mg Tablet) 50 mg PO BEDTIME MRX1 PRN PRN Reason: Insomnia Last Admin: 03/15/24 21:18 Dose: 50 mg Allergies Allergies Allergy/AdvReac Type Severity Reaction Status Date / Time No Known Allergies Allergy Verified 03/14/24 07:10 Assessment & Plan Assessment & Plan (1) MDD (major depressive disorder), recurrent, severe, with psychosis: Status: Acute Code(s): F33.3 - Major depressive disorder, recurrent, severe with psychotic symptoms (2) Opioid use disorder, moderate, dependence: Status: Acute Code(s): F11.20 - Opioid dependence, uncomplicated (3) Cocaine use disorder, moderate, dependence: Status: Acute Code(s): F14.20 - Cocaine dependence, uncomplicated Plan Mr. Cohn is a 33 year-old male with hx of cocaine and opioid use disorder. He self presented to [facility] ED reporting increased substance use mainly cocaine and opioids. He does report some alcohol use 2 beers daily, but denies hx of alcohol withdrawal. This is his first inpatient psychiatric admission. It also appears that as substance use has increased, pt is now experiencing psychosis and paranoid- this may be transient and mostly substance induce although possibility of psychosis and delusions of becoming more permanent. Medical work up does show Qtc prolongation 514, K repleated but ideally to keep>4, Mg is 2.5. troponins were 9, he denies chest pain. His BP has also been quiet elevated SBP 180's suspect this mostly related to cocaine use rather than alcohol withdrawal. start clonidine 0.1mg po BID. Pt is interested in addiction medicine consult to discuss MAT. He reports he has never been on either buprenorphine nor methadone. PLAN 1. Admit to M3, CV, 15 minutes checks for safety 2. will not continue oxycodone here on the unit, but instead will wait for addiction medicine consult to recommend MAT 3. clonidine 0.1mg po BID; olanzapine 5mg po q6h prn agitationy, may want to consider scheduling antipsychotic if more consistent psychosis and delusinal content noted 4. obtain collateral information 5. aftercare planning. 03/15- Continue tx. EKG improved with clonidine Lorazepam CIWA, consider tapering 03/16. 03/16- Detox continues Schedule Lorazepam- 1 mg bid x 48 hrs, then 1 mg qd x 24 hrs then re-eval Hospitalist consult-HTN Reason for continued inpatient stay Substantial Risk for: rapid decompensation and med/psych decompensation Time Spent With Patient Time: Total time managing care of this patient today ____ minutes.
[2024-03-16] MEDS: Cyclobenzaprine HCl 10 MG TABLET PO ×2 (15:52→22:59)
--- NOTE | 2024-03-16 16:09 | MHC.RECOVRN ---
Briefly met with pt this afternoon to assess for opioid withdrawal. Pt meeting with SW, sitting, awake, alert, easily engages in conversation. Pt appears comfortable, does not appear to be experiencing withdrawal. Pt reports body aches, denies other withdrawal symptoms. Robina Sofia APRN, aware.
--- NOTE | 2024-03-16 16:11 | P.EN_ITS ---
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 Likely unrelated to withdrawal. COWS 4 earlier in the day Recommendations: -encourage comfort meds as appropriate -hospitalist consult already in to address HTN -continue to assess for opioid withdrawal -when ready (COWS 10+) --increasing restlessness, irritability, body aches, etc. start with suboxone 2mg and may repeat in 45mins in sx not subsided -will check in over the weekend if necessary Time Spent With Patient Time: Total time managing care of this patient today ____ minutes.
--- NOTE | 2024-03-16 17:16 | PM.EVENT ---
Event Note Date of Service: 03/16/24 Event Note: Patient is a 33-year-old male with a PMH significant for polysubstance use disorder and depression who was admitted to M3 psychiatry unit with hospitalist consult placed for hypertension. Patient's BP has been elevated as high as 188/116. Patient reports he has previously been on antihypertensives, though though stopped them on his own for unknown reasons. He is unable to state what those medications are. Patient himself believes he has high blood pressure is due to chronic, intractable pain in his right shoulder and knee. Reports fell 3 stories while working and has a plate in his right shoulder and 2 rods in his right knee. Review of records indicates patient has been prescribed to antihypertensives in the past year: Hydrochlorothiazide 25 mg daily and nifedipine 60 mg daily. Will restart patient on nifedipine ER 60 mg daily. Analgesics as per Psychiatry. Time Spent With Patient Time: Total time managing care of this patient today ____ minutes.
[2024-03-16] MEDS: NIFEdipine ER 60 MG TAB.ER.24 PO (18:45)
[2024-03-16] MEDS: Ibuprofen 600 MG TABLET PO (22:58)
[2024-03-16] MEDS: traZODone HCL 50 MG TABLET PO (22:58)
[2024-03-16] MEDS: hydrOXYzine HCL 25 MG TABLET PO (22:58)
[2024-03-17] VITALS (7 sets, daily range): BP systolic 129–191; BP diastolic 67–115; PULSE 62–86; RESP 16–18; TEMP 36.9; O2SAT 97–99
[2024-03-17] MEDS: Folic Acid 1 MG TABLET PO (09:53)
[2024-03-17] MEDS: LORazepam 1 MG TABLET PO ×2 (09:53→21:55)
[2024-03-17] MEDS: NIFEdipine ER 60 MG TAB.ER.24 PO (09:54)
[2024-03-17] MEDS: Thiamine HCL 100 MG TABLET PO (09:54)
[2024-03-17] MEDS: Multivitamin TABLET 1 TAB PO (09:54)
[2024-03-17] MEDS: cloNIDine HCL 0.1 MG TABLET PO ×2 (09:54→21:55)
[2024-03-17] MEDS: hydroCHLOROthiazide 25 MG TABLET PO (14:48)
--- NOTE | 2024-03-17 17:21 | HO.PSYCHPN ---
Subjective Subjective Date of Service: 03/17/24 Reason For Visit: Si Interim History: no issues. gradually feeling better. per staff, yesterday c/o dep/anx in morning. feeling better as day progressed. several visits from . nifedipine for BP added. CIWA 6, 4, 7, 4, 2. COWS 3, 4, 3, 1. slept 7 hours. Mental Status Exam Mental Status Exam Patient Appearance: Appropriate (hospital attire) Patient Orientation: Person, Place and Situation Level of Consciousness: Awake and Alert Patient Behavior: Talkative and Cooperative Mood Description: Withdrawn Affect Description: Flat Patient Cognition Impaired: No Ability to Follow Directions: Fair Speech Pattern: Spontaneous Speech Memory Description: Episodic Impaired Hallucinations: None Delusions: Not Present Thought Process: Goal Oriented Thought Content: positive for [place] and positive for Circumstantial Judgement: Fair Diagnostics Vital Signs (24Hr): Vital Signs - 24 hr 03/16/24 18:43 03/16/24 22:40 03/17/24 09:51 Temperature 98.5 F 98.5 F Pulse Rate 66 62 67 Respiratory Rate 16 16 16 Blood Pressure 171/103 H 147/74 H 184/115 H Pulse Oximetry 97 98 99 Oxygen Delivery Method Room Air Room Air Room Air 03/17/24 13:13 03/17/24 14:48 Temperature Pulse Rate 62 Respiratory Rate 16 Blood Pressure 129/67 149/75 H Pulse Oximetry 97 Oxygen Delivery Method Room Air BMI result Body Mass Index 29.6 Labs 03/14/24 08:00 03/14/24 08:00 Medications Medications Current Medications Acetaminophen (Acetaminophen 325 Mg Tablet) 1,000 mg PO Q6H PRN PRN Reason: Pain, Mild (Pain Scale 1-3) Al Hydroxide/Mg Hydroxide (Magnesium Hydrox/Alum Hydrox 30 Ml Oral.Susp) 30 ml PO Q6H PRN PRN Reason: Heartburn/Nausea Clonidine HCl (Clonidine Hcl 0.1 Mg Tablet) 0.1 mg PO BID [facility]; Protocol Last Admin: 03/17/24 09:54 Dose: 0.1 mg Cyclobenzaprine HCl (Cyclobenzaprine Hcl 10 Mg Tablet) 10 mg PO TID PRN PRN Reason: spasm Last Admin: 03/16/24 22:59 Dose: 10 mg Folic Acid (Folic Acid 1 Mg Tablet) 1 mg PO DAILY [facility] Last Admin: 03/17/24 09:53 Dose: 1 mg Hydrochlorothiazide (Hydrochlorothiazide 25 Mg Tablet) 25 mg PO DAILY [facility]; Protocol Last Admin: 03/17/24 14:48 Dose: 25 mg Hydroxyzine HCl (Hydroxyzine Hcl 25 Mg Tablet) 25 mg PO Q6H PRN PRN Reason: Anxiety Last Admin: 03/16/24 22:58 Dose: 25 mg Ibuprofen (Ibuprofen 600 Mg Tablet) 600 mg PO Q6H PRN PRN Reason: Pain, Moderate(Pain Scale 4-6) Last Admin: 03/16/24 22:58 Dose: 600 mg Lorazepam (Lorazepam 1 Mg Tablet) 1 mg PO BID [facility] Stop: 03/18/24 09:00 Last Admin: 03/17/24 09:53 Dose: 1 mg Magnesium Hydroxide (Milk Of Magnesia 30 Ml Oral.Susp) 30 ml PO DAILY PRN PRN Reason: Constipation Multivitamins/Vitamin C (Multivitamin Tablet) 1 tab PO DAILY [facility] Last Admin: 03/17/24 09:54 Dose: 1 tab Nicotine (Nicotine 21 Mg Patch.Td24) 21 mg TRANSDERMA DAILY PRN PRN Reason: nicotine cravings Nifedipine (Nifedipine Er 60 Mg Tab.Er.24) 60 mg PO DAILY [facility]; Protocol Last Admin: 03/17/24 09:54 Dose: 60 mg Olanzapine (Olanzapine Odt 10 Mg Tab.Rapdis) 5 mg TRANSLINGU Q6H PRN PRN Reason: agitation or severe anxiety Thiamine HCl (Thiamine Hcl 100 Mg Tablet) 100 mg PO DAILY [facility] Last Admin: 03/17/24 09:54 Dose: 100 mg Trazodone HCl (Trazodone Hcl 50 Mg Tablet) 50 mg PO BEDTIME MRX1 PRN PRN Reason: Insomnia Last Admin: 03/16/24 22:58 Dose: 50 mg Allergies Allergies Allergy/AdvReac Type Severity Reaction Status Date / Time No Known Allergies Allergy Verified 03/14/24 07:10 Assessment & Plan Assessment & Plan (1) MDD (major depressive disorder), recurrent, severe, with psychosis: Status: Acute Code(s): F33.3 - Major depressive disorder, recurrent, severe with psychotic symptoms (2) Opioid use disorder, moderate, dependence: Status: Acute Code(s): F11.20 - Opioid dependence, uncomplicated (3) Cocaine use disorder, moderate, dependence: Status: Acute Code(s): F14.20 - Cocaine dependence, uncomplicated Plan Mr. Cohn is a 33 year-old male with hx of cocaine and opioid use disorder. He self presented to [facility] [place] ED reporting increased substance use mainly cocaine and opioids. He does report some alcohol use 2 beers daily, but denies hx of alcohol withdrawal. This is his first inpatient psychiatric admission. It also appears that as substance use has increased, pt is now experiencing psychosis and paranoid- this may be transient and mostly substance induce although possibility of psychosis and delusions of becoming more permanent. Medical work up does show Qtc prolongation 514, K repleated but ideally to keep>4, Mg is 2.5. troponins were 9, he denies chest pain. His BP has also been quiet elevated SBP 180's suspect this mostly related to cocaine use rather than alcohol withdrawal. start clonidine 0.1mg po BID. Pt is interested in addiction medicine consult to discuss MAT. He reports he has never been on either buprenorphine nor methadone. PLAN 1. Admit to M3, CV, 15 minutes checks for safety 2. will not continue oxycodone here on the unit, but instead will wait for addiction medicine consult to recommend MAT 3. clonidine 0.1mg po BID; olanzapine 5mg po q6h prn agitationy, may want to consider scheduling antipsychotic if more consistent psychosis and delusinal content noted 4. obtain collateral information 5. aftercare planning. 03/15- Continue tx. EKG improved with clonidine Lorazepam CIWA, consider tapering 03/16. 03/16- Detox continues Schedule Lorazepam- 1 mg bid x 48 hrs, then 1 mg qd x 24 hrs then re-eval Hospitalist consult-HTN 03/17: DC CIWA and COWS. continue ativan taper. nifedipine added for HTN. otherwise continue current mgmt. Reason for continued inpatient stay Substantial Risk for: harm to self, inability to function and rapid decompensation Time Spent With Patient Time: Total time managing care of this patient today ____ minutes.
[2024-03-17] MEDS: hydrOXYzine HCL 25 MG TABLET PO (21:55)
[2024-03-17] MEDS: Ibuprofen 600 MG TABLET PO (21:55)
[2024-03-17] MEDS: Cyclobenzaprine HCl 10 MG TABLET PO (21:55)
[2024-03-17] MEDS: traZODone HCL 50 MG TABLET PO (23:46)
--- NOTE | 2024-03-18 | ECG_ITS ---
Test Reason : radiating CP, facial numbness Blood Pressure : / mmHG Vent. Rate : 068 BPM Atrial Rate : 068 BPM P-R Int : 146 ms QRS Dur : 094 ms QT Int : 388 ms P-R-T Axes : 042 -02 049 degrees QTc Int : 412 ms Normal sinus rhythm Nonspecific T wave abnormality Abnormal ECG When compared with ECG of 18-MAR-2024 22:03, No significant change was found Referred By: Angelito Hawkins Electronically Signed By:KOLBY BAKER
--- NOTE | 2024-03-18 | ECG_ITS ---
Test Reason : chest pain Blood Pressure : / mmHG Vent. Rate : 068 BPM Atrial Rate : 068 BPM P-R Int : 146 ms QRS Dur : 092 ms QT Int : 412 ms P-R-T Axes : 037 -05 039 degrees QTc Int : 438 ms Normal sinus rhythm Moderate voltage criteria for LVH, may be normal variant ( R in aVL , Sokolow-Joyce ) Nonspecific T wave abnormality Abnormal ECG When compared with ECG of 15-MAR-2024 11:32, No significant change was found Referred By: Angelito Hawkins Electronically Signed By:KOLBY BAKER
[2024-03-18] MEDS: hydrOXYzine HCL 25 MG TABLET PO (03:11)
[2024-03-18] MEDS: traZODone HCL 50 MG TABLET PO (03:11)
[2024-03-18 07:46] VITALS: BP 153/86; PULSE 65; RESP 16; TEMP 36.8; O2SAT 98
[2024-03-18 09:20] VITALS: BP 151/79; PULSE 64; RESP 14
[2024-03-18] MEDS: NIFEdipine ER 60 MG TAB.ER.24 PO (09:21)
[2024-03-18] MEDS: Thiamine HCL 100 MG TABLET PO (09:22)
[2024-03-18] MEDS: cloNIDine HCL 0.1 MG TABLET PO ×2 (09:22→22:10)
[2024-03-18] MEDS: hydroCHLOROthiazide 25 MG TABLET PO (09:22)
[2024-03-18] MEDS: LORazepam 1 MG TABLET PO (09:22)
[2024-03-18] MEDS: Folic Acid 1 MG TABLET PO (09:22)
[2024-03-18] MEDS: Multivitamin TABLET 1 TAB PO (09:22)
--- NOTE | 2024-03-18 16:52 | HO.PSYCHPN ---
Subjective Subjective Date of Service: 03/18/24 Reason For Visit: Si Interim History: asking for pass for tomorrow to attend brother in law's . otherwise no complaints or requests. per staff, mood improved. visits from . pleasant, cheerful, visible, social. some anxiety re phone call last evening. slept only 4 hours. Mental Status Exam Mental Status Exam Patient Appearance: Appropriate (hospital attire) Patient Orientation: Person, Place and Situation Level of Consciousness: Awake and Alert Patient Behavior: Talkative and Cooperative Mood Description: Withdrawn Affect Description: Flat Patient Cognition Impaired: No Ability to Follow Directions: Fair Speech Pattern: Spontaneous Speech Memory Description: Episodic Impaired Hallucinations: None Delusions: Not Present Thought Process: Goal Oriented Thought Content: positive for [place] and positive for Circumstantial Judgement: Fair Diagnostics Vital Signs (24Hr): Vital Signs - 24 hr 03/17/24 21:42 03/17/24 23:45 03/18/24 07:46 Temperature 98.5 F 98.2 F Pulse Rate 86 70 65 Respiratory Rate 18 16 Blood Pressure 141/101 H 191/93 H 153/86 H Pulse Oximetry 97 98 Oxygen Delivery Method Room Air Room Air 03/18/24 09:20 Temperature Pulse Rate 64 Respiratory Rate 14 Blood Pressure 151/79 H Pulse Oximetry Oxygen Delivery Method BMI result Body Mass Index 29.6 Labs 03/14/24 08:00 03/14/24 08:00 Medications Medications Current Medications Acetaminophen (Acetaminophen 325 Mg Tablet) 1,000 mg PO Q6H PRN PRN Reason: Pain, Mild (Pain Scale 1-3) Al Hydroxide/Mg Hydroxide (Magnesium Hydrox/Alum Hydrox 30 Ml Oral.Susp) 30 ml PO Q6H PRN PRN Reason: Heartburn/Nausea Clonidine HCl (Clonidine Hcl 0.1 Mg Tablet) 0.1 mg PO BID [facility]; Protocol Last Admin: 03/18/24 09:22 Dose: 0.1 mg Cyclobenzaprine HCl (Cyclobenzaprine Hcl 10 Mg Tablet) 10 mg PO TID PRN PRN Reason: spasm Last Admin: 03/17/24 21:55 Dose: 10 mg Folic Acid (Folic Acid 1 Mg Tablet) 1 mg PO DAILY [facility] Last Admin: 03/18/24 09:22 Dose: 1 mg Hydrochlorothiazide (Hydrochlorothiazide 25 Mg Tablet) 25 mg PO DAILY [facility]; Protocol Last Admin: 03/18/24 09:22 Dose: 25 mg Hydroxyzine HCl (Hydroxyzine Hcl 25 Mg Tablet) 25 mg PO Q6H PRN PRN Reason: Anxiety Last Admin: 03/18/24 03:11 Dose: 25 mg Ibuprofen (Ibuprofen 600 Mg Tablet) 600 mg PO Q6H PRN PRN Reason: Pain, Moderate(Pain Scale 4-6) Last Admin: 03/17/24 21:55 Dose: 600 mg Magnesium Hydroxide (Milk Of Magnesia 30 Ml Oral.Susp) 30 ml PO DAILY PRN PRN Reason: Constipation Multivitamins/Vitamin C (Multivitamin Tablet) 1 tab PO DAILY [facility] Last Admin: 03/18/24 09:22 Dose: 1 tab Nicotine (Nicotine 21 Mg Patch.Td24) 21 mg TRANSDERMA DAILY PRN PRN Reason: nicotine cravings Nifedipine (Nifedipine Er 60 Mg Tab.Er.24) 60 mg PO DAILY [facility]; Protocol Last Admin: 03/18/24 09:21 Dose: 60 mg Olanzapine (Olanzapine Odt 10 Mg Tab.Rapdis) 5 mg TRANSLINGU Q6H PRN PRN Reason: agitation or severe anxiety Thiamine HCl (Thiamine Hcl 100 Mg Tablet) 100 mg PO DAILY [facility] Last Admin: 03/18/24 09:22 Dose: 100 mg Trazodone HCl (Trazodone Hcl 50 Mg Tablet) 50 mg PO BEDTIME MRX1 PRN PRN Reason: Insomnia Last Admin: 03/18/24 03:11 Dose: 50 mg Allergies Allergies Allergy/AdvReac Type Severity Reaction Status Date / Time No Known Allergies Allergy Verified 03/14/24 07:10 Assessment & Plan Assessment & Plan (1) MDD (major depressive disorder), recurrent, severe, with psychosis: Status: Acute Code(s): F33.3 - Major depressive disorder, recurrent, severe with psychotic symptoms (2) Opioid use disorder, moderate, dependence: Status: Acute Code(s): F11.20 - Opioid dependence, uncomplicated (3) Cocaine use disorder, moderate, dependence: Status: Acute Code(s): F14.20 - Cocaine dependence, uncomplicated Plan Mr. Cohn is a 33 year-old male with hx of cocaine and opioid use disorder. He self presented to [facility] reporting increased substance use mainly cocaine and opioids. He does report some alcohol use 2 beers daily, but denies hx of alcohol withdrawal. This is his first inpatient psychiatric admission. It also appears that as substance use has increased, pt is now experiencing psychosis and paranoid- this may be transient and mostly substance induce although possibility of psychosis and delusions of becoming more permanent. Medical work up does show Qtc prolongation 514, K repleated but ideally to keep>4, Mg is 2.5. troponins were 9, he denies chest pain. His BP has also been quiet elevated SBP 180's suspect this mostly related to cocaine use rather than alcohol withdrawal. start clonidine 0.1mg po BID. Pt is interested in addiction medicine consult to discuss MAT. He reports he has never been on either buprenorphine nor methadone. PLAN 1. Admit to M3, CV, 15 minutes checks for safety 2. will not continue oxycodone here on the unit, but instead will wait for addiction medicine consult to recommend MAT 3. clonidine 0.1mg po BID; olanzapine 5mg po q6h prn agitationy, may want to consider scheduling antipsychotic if more consistent psychosis and delusinal content noted 4. obtain collateral information 5. aftercare planning. 03/15- Continue tx. EKG improved with clonidine Lorazepam CIWA, consider tapering 03/16. 03/16- Detox continues Schedule Lorazepam- 1 mg bid x 48 hrs, then 1 mg qd x 24 hrs then re-eval Hospitalist consult-HTN 03/17: DC CIWA and COWS. continue ativan taper. nifedipine added for HTN. otherwise continue current mgmt. 03/18: continue ativan taper. otherwise continue current mgmt. pleasant, cooperative, stbale. Reason for continued inpatient stay Substantial Risk for: rapid decompensation Time Spent With Patient Time: Total time managing care of this patient today ____ minutes.
[2024-03-18 20:00] VITALS: BP 142/73; PULSE 74; RESP 18; TEMP 36.1; O2SAT 97
[2024-03-18 21:54] VITALS: BP 147/79; PULSE 76; RESP 16; TEMP 36.8; O2SAT 98
--- NOTE | 2024-03-18 21:54 | PM.EVENT ---
Event Note Date of Service: 03/18/24 Event Note: Patient with chest pain, radiating across the chest. Obtaining troponin and ekg Time Spent With Patient Time: Total time managing care of this patient today ____ minutes.
[2024-03-18 22:10] VITALS: BP 147/79
[2024-03-18] MEDS: Cyclobenzaprine HCl 10 MG TABLET PO (22:17)
[2024-03-18 23:02] LABS: Troponin-I High Sensitivity 7.8 ng/L (<3.5-35.0)
[2024-03-19] MEDS: hydrOXYzine HCL 25 MG TABLET PO ×2 (02:27→17:17)
[2024-03-19] MEDS: Ibuprofen 600 MG TABLET PO ×2 (02:28→17:17)
[2024-03-19] MEDS: traZODone HCL 50 MG TABLET PO ×2 (02:28→20:37)
--- NOTE | 2024-03-19 03:22 | PC.NURSE ---
Pt c/o radiating chest pain and numbness of face, V/S read BP-147/79, P-76, R-16, inbound call center representative provider and hospitalist informed. EKG and Troponin test order put in and done. PRN meds administered, Pt later verbalized some relief of pains.
[2024-03-19 07:50] VITALS: BP 138/80; PULSE 60; RESP 16; TEMP 36.6; O2SAT 99
[2024-03-19] MEDS: Multivitamin TABLET 1 TAB PO (09:12)
[2024-03-19 09:13] VITALS: BP 138/88
[2024-03-19] MEDS: hydroCHLOROthiazide 25 MG TABLET PO (09:13)
[2024-03-19] MEDS: Folic Acid 1 MG TABLET PO (09:13)
[2024-03-19] MEDS: cloNIDine HCL 0.1 MG TABLET PO ×2 (09:13→20:37)
[2024-03-19] MEDS: NIFEdipine ER 60 MG TAB.ER.24 PO (09:13)
[2024-03-19] MEDS: Thiamine HCL 100 MG TABLET PO (09:13)
--- NOTE | 2024-03-19 12:33 | P.PNPSI_ITS ---
Subjective Subjective Date of Service: 03/19/24 Reason For Visit: Si Subjective Notes: Conditional Voluntary Interim History: Reviewed with Dr. Loza. Calm, cooperative. tearful during 1:1. Pt reports feeling anxious and depressed ; pt stated, I'm torn between staying here and getting help or going home. I have a lot of built up things I want to talk about but I know I can do that with a therapist . Pt denies SI/HI/VH/AH. Pt reports he plans on speaking with his today to discuss discharge plan. Medication Compliance: Yes Side effects from medications: No Attending Groups: Yes Review of Systems Constitutional: Reports as per HPI Eyes: Reports as per HPI Reports as per HPI Cardiovascular: Reports as per HPI Respiratory: Reports as per HPI Gastrointestinal: Reports as per HPI Genitourinary: Reports as per HPI Musculoskeletal: Reports as per HPI Skin/Breast: Reports as per HPI Reports as per HPI Psychiatric: Reports as per HPI Endocrine: Reports as per HPI Hematologic/Lymphatic: Reports as per HPI Allergic/Immunologic: Reports as per HPI Mental Status Exam Mental Status Exam Narrative: Pt is alert and oriented; behavior is cooperative, calm, tearful; dressed in casual attire; mood is described as anxious and depressed ; eye contact appropriate; Speech is normal rate, volume and not pressured; thought process is organized and goal directed; Thought content is on tx; denies SI/HI/VH/AH. Diagnostics Vital Signs (24Hr): Vital Signs - 24 hr 03/18/24 20:00 03/18/24 21:54 03/18/24 22:10 Temperature 97 F 98.2 F Pulse Rate 74 76 Respiratory Rate 18 16 Blood Pressure 142/73 H 147/79 H 147/79 H Pulse Oximetry 97 98 Oxygen Delivery Method Room Air Room Air 03/19/24 07:50 03/19/24 09:13 03/19/24 09:13 Temperature 97.9 F Pulse Rate 60 Respiratory Rate 16 Blood Pressure 138/80 138/88 138/88 Pulse Oximetry 99 Oxygen Delivery Method Room Air 03/19/24 09:13 Temperature Pulse Rate Respiratory Rate Blood Pressure 138/88 Pulse Oximetry Oxygen Delivery Method BMI result Body Mass Index 29.6 Labs 03/14/24 08:00 03/14/24 08:00 Labs: Laboratory Results - last 48 hr 03/18/24 22:37 Troponin I High Sens 7.8 Medications Medications Current Medications Acetaminophen (Acetaminophen 325 Mg Tablet) 1,000 mg PO Q6H PRN PRN Reason: Pain, Mild (Pain Scale 1-3) Al Hydroxide/Mg Hydroxide (Magnesium Hydrox/Alum Hydrox 30 Ml Oral.Susp) 30 ml PO Q6H PRN PRN Reason: Heartburn/Nausea Clonidine HCl (Clonidine Hcl 0.1 Mg Tablet) 0.1 mg PO BID [facility]; Protocol Last Admin: 03/19/24 09:13 Dose: 0.1 mg Cyclobenzaprine HCl (Cyclobenzaprine Hcl 10 Mg Tablet) 10 mg PO TID PRN PRN Reason: spasm Last Admin: 03/18/24 22:17 Dose: 10 mg Folic Acid (Folic Acid 1 Mg Tablet) 1 mg PO DAILY [facility] Last Admin: 03/19/24 09:13 Dose: 1 mg Hydrochlorothiazide (Hydrochlorothiazide 25 Mg Tablet) 25 mg PO DAILY [facility]; Protocol Last Admin: 03/19/24 09:13 Dose: 25 mg Hydroxyzine HCl (Hydroxyzine Hcl 25 Mg Tablet) 25 mg PO Q6H PRN PRN Reason: Anxiety Last Admin: 03/19/24 02:27 Dose: 25 mg Ibuprofen (Ibuprofen 600 Mg Tablet) 600 mg PO Q6H PRN PRN Reason: Pain, Moderate(Pain Scale 4-6) Last Admin: 03/19/24 02:28 Dose: 600 mg Magnesium Hydroxide (Milk Of Magnesia 30 Ml Oral.Susp) 30 ml PO DAILY PRN PRN Reason: Constipation Multivitamins/Vitamin C (Multivitamin Tablet) 1 tab PO DAILY [facility] Last Admin: 03/19/24 09:12 Dose: 1 tab Nicotine (Nicotine 21 Mg Patch.Td24) 21 mg TRANSDERMA DAILY PRN PRN Reason: nicotine cravings Nifedipine (Nifedipine Er 60 Mg Tab.Er.24) 60 mg PO DAILY [facility]; Protocol Last Admin: 03/19/24 09:13 Dose: 60 mg Olanzapine (Olanzapine Odt 10 Mg Tab.Rapdis) 5 mg TRANSLINGU Q6H PRN PRN Reason: agitation or severe anxiety Thiamine HCl (Thiamine Hcl 100 Mg Tablet) 100 mg PO DAILY [facility] Last Admin: 03/19/24 09:13 Dose: 100 mg Trazodone HCl (Trazodone Hcl 50 Mg Tablet) 50 mg PO BEDTIME MRX1 PRN PRN Reason: Insomnia Last Admin: 03/19/24 02:28 Dose: 50 mg Allergies Allergies Allergy/AdvReac Type Severity Reaction Status Date / Time No Known Allergies Allergy Verified 03/14/24 07:10 Assessment & Plan Assessment & Plan (1) MDD (major depressive disorder), recurrent, severe, with psychosis: Status: Acute Code(s): F33.3 - Major depressive disorder, recurrent, severe with psychotic symptoms (2) Opioid use disorder, moderate, dependence: Status: Acute Code(s): F11.20 - Opioid dependence, uncomplicated (3) Cocaine use disorder, moderate, dependence: Status: Acute Code(s): F14.20 - Cocaine dependence, uncomplicated Plan Mr. Cohn is a 33 year-old male with hx of cocaine and opioid use disorder. He self presented [place] [facility] reporting increased substance use mainly cocaine and opioids. He does report some alcohol use 2 beers daily, but denies hx of alcohol withdrawal. This is his first inpatient psychiatric admission. It also appears that as substance use has increased, pt is now experiencing psychosis and paranoid- this may be transient and mostly substance induce although possibility of psychosis and delusions of becoming more permanent. Medical work up does show Qtc prolongation 514, K repleated but ideally to keep>4, Mg is 2.5. troponins were 9, he denies chest pain. His BP has also been quiet elevated SBP 180's suspect this mostly related to cocaine use rather than alcohol withdrawal. start clonidine 0.1mg po BID. Pt is interested in addiction medicine consult to discuss MAT. He reports he has never been on either buprenorphine nor methadone. PLAN 1. Admit to M3, CV, 15 minutes checks for safety 2. will not continue oxycodone here on the unit, but instead will wait for addiction medicine consult to recommend MAT 3. clonidine 0.1mg po BID; olanzapine 5mg po q6h prn agitationy, may want to consider scheduling antipsychotic if more consistent psychosis and delusinal content noted 4. obtain collateral information 5. aftercare planning. 03/15- Continue tx. EKG improved with clonidine Lorazepam CIWA, consider tapering 03/16. 03/16- Detox continues Schedule Lorazepam- 1 mg bid x 48 hrs, then 1 mg qd x 24 hrs then re- eval Hospitalist consult-HTN 03/17: DC CIWA and COWS. continue ativan taper. nifedipine added for HTN. otherwise continue current mgmt. 03/18: continue ativan taper. otherwise continue current mgmt. pleasant, cooperative, stbale. 03/19: Calm, cooperative. tearful during 1:1. Pt reports feeling anxious and depressed ; pt stated, I'm torn between staying here and getting help or going home. I have a lot of built up things I want to talk about but I know I can do that with a therapist . Pt denies SI/HI/VH/AH. Pt reports he plans on speaking with his today to discuss discharge plan. Patient educated on: diagnosis, medication risk/benefits and therapeutic strategies Reason for continued inpatient stay Substantial Risk for: med/psych decompensation Time Spent With Patient Time: Total time managing care of this patient today _30___ minutes.
--- NOTE | 2024-03-19 13:18 | HO.ADDICTPRO ---
Subjective Subjective Date of Service: 03/19/24 Reason For Visit: Si Interim History: Patient seen in follow up No withdrawal sx reported or documented since admission Patient states he had one day when he felt chills, but it was short lived. Expressing frustration, stating that he felt noone was check in on him related to withdrawal. Assured patient that this proposal writer and dry heat room attendant were checkingin daily with his care team. Discussed plan moving forward. Agreeable to starting suboxone daily. Discussed benefits related to addressing cravings and ongoing chorinic pain he has in his shoulder and knee. Review of Systems Constitutional: Reports as per HPI and Reports no additional constitutional complaints Mental Status Exam Mental Status Exam Patient Appearance: Well Grooomed Level of Consciousness: Awake and Appropriate Patient Behavior: Appropriate and Talkative Mood Description: Calm Affect Description: Calm Speech Pattern: Clear Judgement: Fair (insight fair ) Diagnostics Vital Signs (24Hr): Vital Signs - 24 hr 03/18/24 20:00 03/18/24 21:54 03/18/24 22:10 Temperature 97 F 98.2 F Pulse Rate 74 76 Respiratory Rate 18 16 Blood Pressure 142/73 H 147/79 H 147/79 H Pulse Oximetry 97 98 Oxygen Delivery Method Room Air Room Air 03/19/24 07:50 03/19/24 09:13 03/19/24 09:13 Temperature 97.9 F Pulse Rate 60 Respiratory Rate 16 Blood Pressure 138/80 138/88 138/88 Pulse Oximetry 99 Oxygen Delivery Method Room Air 03/19/24 09:13 Temperature Pulse Rate Respiratory Rate Blood Pressure 138/88 Pulse Oximetry Oxygen Delivery Method BMI result Body Mass Index 29.6 Labs 03/14/24 08:00 03/14/24 08:00 Labs: Laboratory Results - last 48 hr 03/18/24 22:37 Troponin I High Sens 7.8 Medications Medications Current Medications Acetaminophen (Acetaminophen 325 Mg Tablet) 1,000 mg PO Q6H PRN PRN Reason: Pain, Mild (Pain Scale 1-3) Al Hydroxide/Mg Hydroxide (Magnesium Hydrox/Alum Hydrox 30 Ml Oral.Susp) 30 ml PO Q6H PRN PRN Reason: Heartburn/Nausea Buprenorphine/Naloxone (Buprenorphine/Naloxone 2/0.5mg Film) 1 film SUBLINGUAL DAILY [facility] Clonidine HCl (Clonidine Hcl 0.1 Mg Tablet) 0.1 mg PO BID [facility]; Protocol Last Admin: 03/19/24 09:13 Dose: 0.1 mg Cyclobenzaprine HCl (Cyclobenzaprine Hcl 10 Mg Tablet) 10 mg PO TID PRN PRN Reason: spasm Last Admin: 03/18/24 22:17 Dose: 10 mg Folic Acid (Folic Acid 1 Mg Tablet) 1 mg PO DAILY [facility] Last Admin: 03/19/24 09:13 Dose: 1 mg Hydrochlorothiazide (Hydrochlorothiazide 25 Mg Tablet) 25 mg PO DAILY [facility]; Protocol Last Admin: 03/19/24 09:13 Dose: 25 mg Hydroxyzine HCl (Hydroxyzine Hcl 25 Mg Tablet) 25 mg PO Q6H PRN PRN Reason: Anxiety Last Admin: 03/19/24 02:27 Dose: 25 mg Ibuprofen (Ibuprofen 600 Mg Tablet) 600 mg PO Q6H PRN PRN Reason: Pain, Moderate(Pain Scale 4-6) Last Admin: 03/19/24 02:28 Dose: 600 mg Magnesium Hydroxide (Milk Of Magnesia 30 Ml Oral.Susp) 30 ml PO DAILY PRN PRN Reason: Constipation Multivitamins/Vitamin C (Multivitamin Tablet) 1 tab PO DAILY [facility] Last Admin: 03/19/24 09:12 Dose: 1 tab Nicotine (Nicotine 21 Mg Patch.Td24) 21 mg TRANSDERMA DAILY PRN PRN Reason: nicotine cravings Nifedipine (Nifedipine Er 60 Mg Tab.Er.24) 60 mg PO DAILY [facility]; Protocol Last Admin: 03/19/24 09:13 Dose: 60 mg Olanzapine (Olanzapine Odt 10 Mg Tab.Rapdis) 5 mg TRANSLINGU Q6H PRN PRN Reason: agitation or severe anxiety Thiamine HCl (Thiamine Hcl 100 Mg Tablet) 100 mg PO DAILY [facility] Last Admin: 03/19/24 09:13 Dose: 100 mg Trazodone HCl (Trazodone Hcl 50 Mg Tablet) 50 mg PO BEDTIME MRX1 PRN PRN Reason: Insomnia Last Admin: 03/19/24 02:28 Dose: 50 mg Allergies Allergies Allergy/AdvReac Type Severity Reaction Status Date / Time No Known Allergies Allergy Verified 03/14/24 07:10 Assessment & Plan Assessment & Plan (1) Opioid use disorder, moderate, dependence: Status: Acute Code(s): F11.20 - Opioid dependence, uncomplicated Assessment and Plan: start suboxone 2mg QD reassess in AM Total time managing care of this patient today __35__ minutes.
[2024-03-19] MEDS: Buprenorphine/Naloxone 2/0.5mg FILM 1 FILM SUBLINGUAL (14:27)
[2024-03-19] MEDS: Cyclobenzaprine HCl 10 MG TABLET PO (17:17)
[2024-03-19 20:00] VITALS: BP 144/85; PULSE 97; RESP 16; TEMP 36.1; O2SAT 97
[2024-03-20] MEDS: Ibuprofen 600 MG TABLET PO ×3 (01:01→15:50)
[2024-03-20] MEDS: traZODone HCL 50 MG TABLET PO ×2 (01:01→21:05)
[2024-03-20] MEDS: hydrOXYzine HCL 25 MG TABLET PO ×3 (01:02→21:05)
[2024-03-20 07:59] VITALS: BP 136/79; PULSE 62; RESP 18; TEMP 36.4; O2SAT 100
--- NOTE | 2024-03-20 08:48 | HO.PSYCHPN ---
Subjective Subjective Date of Service: 03/20/24 Reason For Visit: Si Subjective Notes: Conditional Voluntary Interim History: Reviewed with Dr. Loza. Pt reports feeling good today; pt stated, visit with his yesterday went well. He is looking forward to discharging tomorrow. Pt reports he plans on following up with outpatient providers and attending individual and family therapy. pt denies SI/HI/VH/AH. Medication Compliance: Yes Side effects from medications: No Attending Groups: Yes Review of Systems Constitutional: Reports as per HPI Eyes: Reports as per HPI Reports as per HPI Cardiovascular: Reports as per HPI Respiratory: Reports as per HPI Gastrointestinal: Reports as per HPI Genitourinary: Reports as per HPI Musculoskeletal: Reports as per HPI Skin/Breast: Reports as per HPI Reports as per HPI Psychiatric: Reports as per HPI Endocrine: Reports as per HPI Hematologic/Lymphatic: Reports as per HPI Allergic/Immunologic: Reports as per HPI Mental Status Exam Mental Status Exam Narrative: Pt is alert and oriented; behavior is cooperative, calm; dressed in casual attire; mood is described as good ; eye contact appropriate; Speech is normal rate, volume and not pressured; thought process is organized and goal directed; Thought content is on tx; denies SI/HI/VH/AH. Diagnostics Vital Signs (24Hr): Vital Signs - 24 hr 03/19/24 09:13 03/19/24 09:13 03/19/24 09:13 Temperature Pulse Rate Respiratory Rate Blood Pressure 138/88 138/88 138/88 Pulse Oximetry Oxygen Delivery Method 03/19/24 20:00 03/20/24 07:59 Temperature 97 F 97.5 F Pulse Rate 97 62 Respiratory Rate 16 18 Blood Pressure 144/85 H 136/79 Pulse Oximetry 97 100 Oxygen Delivery Method Room Air Room Air BMI result Body Mass Index 29.6 Labs 03/14/24 08:00 03/14/24 08:00 Labs: Laboratory Results - last 48 hr 03/18/24 22:37 Troponin I High Sens 7.8 Medications Medications Current Medications Acetaminophen (Acetaminophen 325 Mg Tablet) 1,000 mg PO Q6H PRN PRN Reason: Pain, Mild (Pain Scale 1-3) Al Hydroxide/Mg Hydroxide (Magnesium Hydrox/Alum Hydrox 30 Ml Oral.Susp) 30 ml PO Q6H PRN PRN Reason: Heartburn/Nausea Buprenorphine/Naloxone (Buprenorphine/Naloxone 2/0.5mg Film) 1 film SUBLINGUAL DAILY [facility] Last Admin: 03/19/24 14:27 Dose: 1 film Clonidine HCl (Clonidine Hcl 0.1 Mg Tablet) 0.1 mg PO BID [facility]; Protocol Last Admin: 03/19/24 20:37 Dose: 0.1 mg Cyclobenzaprine HCl (Cyclobenzaprine Hcl 10 Mg Tablet) 10 mg PO TID PRN PRN Reason: spasm Last Admin: 03/19/24 17:17 Dose: 10 mg Folic Acid (Folic Acid 1 Mg Tablet) 1 mg PO DAILY [facility] Last Admin: 03/19/24 09:13 Dose: 1 mg Hydrochlorothiazide (Hydrochlorothiazide 25 Mg Tablet) 25 mg PO DAILY [facility]; Protocol Last Admin: 03/19/24 09:13 Dose: 25 mg Hydroxyzine HCl (Hydroxyzine Hcl 25 Mg Tablet) 25 mg PO Q6H PRN PRN Reason: Anxiety Last Admin: 03/20/24 01:02 Dose: 25 mg Ibuprofen (Ibuprofen 600 Mg Tablet) 600 mg PO Q6H PRN PRN Reason: Pain, Moderate(Pain Scale 4-6) Last Admin: 03/20/24 01:01 Dose: 600 mg Magnesium Hydroxide (Milk Of Magnesia 30 Ml Oral.Susp) 30 ml PO DAILY PRN PRN Reason: Constipation Multivitamins/Vitamin C (Multivitamin Tablet) 1 tab PO DAILY [facility] Last Admin: 03/19/24 09:12 Dose: 1 tab Nicotine (Nicotine 21 Mg Patch.Td24) 21 mg TRANSDERMA DAILY PRN PRN Reason: nicotine cravings Nifedipine (Nifedipine Er 60 Mg Tab.Er.24) 60 mg PO DAILY [facility]; Protocol Last Admin: 03/19/24 09:13 Dose: 60 mg Olanzapine (Olanzapine Odt 10 Mg Tab.Rapdis) 5 mg TRANSLINGU Q6H PRN PRN Reason: agitation or severe anxiety Thiamine HCl (Thiamine Hcl 100 Mg Tablet) 100 mg PO DAILY [facility] Last Admin: 03/19/24 09:13 Dose: 100 mg Trazodone HCl (Trazodone Hcl 50 Mg Tablet) 50 mg PO BEDTIME MRX1 PRN PRN Reason: Insomnia Last Admin: 03/20/24 01:01 Dose: 50 mg Allergies Allergies Allergy/AdvReac Type Severity Reaction Status Date / Time No Known Allergies Allergy Verified 03/14/24 07:10 Assessment & Plan Assessment & Plan (1) MDD (major depressive disorder), recurrent, severe, with psychosis: Status: Acute Code(s): F33.3 - Major depressive disorder, recurrent, severe with psychotic symptoms (2) Opioid use disorder, moderate, dependence: Status: Acute Code(s): F11.20 - Opioid dependence, uncomplicated (3) Cocaine use disorder, moderate, dependence: Status: Acute Code(s): F14.20 - Cocaine dependence, uncomplicated Plan Mr. Cohn is a 33 year-old male with hx of cocaine and opioid use disorder. He self presented to [facility] ED reporting increased substance use mainly cocaine and opioids. He does report some alcohol use 2 beers daily, but denies hx of alcohol withdrawal. This is his first inpatient psychiatric admission. It also appears that as substance use has increased, pt is now experiencing psychosis and paranoid- this may be transient and mostly substance induce although possibility of psychosis and delusions of becoming more permanent. Medical work up does show Qtc prolongation 514, K repleated but ideally to keep>4, Mg is 2.5. troponins were 9, he denies chest pain. His BP has also been quiet elevated SBP 180's suspect this mostly related to cocaine use rather than alcohol withdrawal. start clonidine 0.1mg po BID. Pt is interested in addiction medicine consult to discuss MAT. He reports he has never been on either buprenorphine nor methadone. PLAN 1. Admit to M3, CV, 15 minutes checks for safety 2. will not continue oxycodone here on the unit, but instead will wait for addiction medicine consult to recommend MAT 3. clonidine 0.1mg po BID; olanzapine 5mg po q6h prn agitationy, may want to consider scheduling antipsychotic if more consistent psychosis and delusinal content noted 4. obtain collateral information 5. aftercare planning. 03/15- Continue tx. EKG improved with clonidine Lorazepam CIWA, consider tapering 03/16. 03/16- Detox continues Schedule Lorazepam- 1 mg bid x 48 hrs, then 1 mg qd x 24 hrs then re-eval Hospitalist consult-HTN 03/17: DC CIWA and COWS. continue ativan taper. nifedipine added for HTN. otherwise continue current mgmt. 03/18: continue ativan taper. otherwise continue current mgmt. pleasant, cooperative, stbale. 03/19: Calm, cooperative. tearful during 1:1. Pt reports feeling anxious and depressed ; pt stated, I'm torn between staying here and getting help or going home. I have a lot of built up things I want to talk about but I know I can do that with a therapist . Pt denies SI/HI/VH/AH. Pt reports he plans on speaking with his today to discuss discharge plan. 03/20: Pt reports feeling good today; pt stated, visit with his yesterday went well. He is looking forward to discharging tomorrow. Pt reports he plans on following up with outpatient providers and attending individual and family therapy. pt denies SI/HI/VH/AH. Patient educated on: diagnosis, medication risk/benefits, substance abuse and therapeutic strategies Reason for continued inpatient stay Substantial Risk for: stable for discharge Time Spent With Patient Time: Total time managing care of this patient today _20___ minutes.
[2024-03-20] MEDS: Folic Acid 1 MG TABLET PO (09:10)
[2024-03-20] MEDS: Multivitamin TABLET 1 TAB PO (09:11)
[2024-03-20] MEDS: Thiamine HCL 100 MG TABLET PO (09:12)
[2024-03-20 09:32] VITALS: BP 165/97
[2024-03-20] MEDS: NIFEdipine ER 60 MG TAB.ER.24 PO (09:32)
[2024-03-20] MEDS: hydroCHLOROthiazide 25 MG TABLET PO (09:32)
[2024-03-20 09:33] VITALS: BP 165/97
[2024-03-20] MEDS: cloNIDine HCL 0.1 MG TABLET PO ×2 (09:33→21:05)
[2024-03-20] MEDS: Buprenorphine/Naloxone 2/0.5mg FILM 1 FILM SUBLINGUAL ×2 (09:33→17:07)
--- NOTE | 2024-03-20 12:22 | PM.EVENT ---
Event Note Date of Service: 03/20/24 Event Note: Addiction follow up Patient seen by surveillance observer this morning Reporting suboxone has been helpful and requests to increase dose to address ongoing cravings He is scheduled to discharge later this week and requested to be connected to [facility] Plan: dose increased to 2mg BID Time Spent With Patient Time: Total time managing care of this patient today ____ minutes.
--- NOTE | 2024-03-20 14:57 | MHC.RECOVRN ---
Met with pt after Suboxone initiation yesterday. Receiving 2 mg daily. Pt denies withdrawal symptoms. Reports continued cravings, requesting increase in dose. Denies other questions or concerns for t/w. Robina Sofia APRN, aware.
[2024-03-20 20:23] VITALS: BP 163/99; PULSE 95; RESP 18; TEMP 37.1; O2SAT 98
[2024-03-21] MEDS: traZODone HCL 50 MG TABLET PO (01:24)
[2024-03-21] MEDS: Cyclobenzaprine HCl 10 MG TABLET PO (01:24)
[2024-03-21] MEDS: Ibuprofen 600 MG TABLET PO (01:25)
--- OUTSIDE RECORDS SUMMARY | 2024-03-21 05:42 | XMS_ITS | Continuity of Care Document ---
Author Organization [facility] Address [address] [place] [address]- Care Team Providers Care School Psychologist Assistant Name Role Phone Not on Staff, PCP Primary Care Physician Unavail able Encounter [facility] Date(s): 10/11/23 - 11/10/23 [facility] [address]- Attending Physician: Brady Peters Admitting Physician: Brady Peters Referring Physician: AdmtrBrady Allergies, Adverse Reactions, Alerts No Known Allergies Medications hydrochlorothiazide 25 mg oral tablet 25 mg, By Mouth, Daily, # 30 capsule, Refills 0, Tot. Refills 0, Maintenance, 10/09/23 9:02:00 EDT,Route to Pharmacy Electronically, [facility], Partial fill upon patient request if the prescription is for a schedule II opioid drug., 18... Start Date: 10/09/23 Stop Date: 11/08/23 Status: Ordered Lexapro 10 mg oral tablet = 10 mg, By Mouth, Daily, # 30 capsule, 0 Refills, Maintenance, 10/09/23 9:01:00 EDT, Tablet, [facility], Partial fill upon patient request if the prescription is for a schedule II opioid drug., 180, cm, 10/09/23 8:51:00 EDT, Height, 110... Start Date: 10/09/23 Stop Date: 11/08/23 Status: Ordered NIFEdipine 60 mg oral tablet, extended release 60 mg, By Mouth, Daily, # 30 capsule, Refills 0, Tot. Refills 0, Maintenance, 10/09/23 9:02:00 EDT,Route to Pharmacy Electronically, [facility], Partial fill upon patient request if the prescription is for a schedule II opioid drug., 18... Start Date: 10/09/23 Stop Date: 11/08/23 Status: Ordered Potassium Chloride (Eqv-K-Tab) 20 mEq oral tablet, extended release 1 tablet = 20 mEq, By Mouth, Daily, # 30 tablet, 0 Refills, Maintenance, 10/09/23 9:03:00 EDT, [facility], Partial fill upon patient request if the prescription is for a schedule II opioid drug., 180, cm, 10/09/23 8:51:00 EDT, Height, 11... Start Date: 10/09/23 Stop Date: 11/08/23 Status: Ordered Problem List Condition Confirmation Course Effective Dates Status Health St [facility] Informant Obese class I Confirmed Active Social History Social History Type Response Smoking Status 10 or more cigarette s (1/2 pack or more)/day in last 30 days entered on: 03/29/23 Sex Patient Care team information Care Team Personnel Name: Donal RED, Trinidad Cowan Position: S RN Member Role: Primary Care Nurse Name: Not on Staff, PCP Position: [facility] Physician (General Medicine) Member Role: PCP Care Team Related Persons Name: ANDREW HARVEY Address: [address] [address] Name: AYDEN HARVEY Address: home [address] [place] [address] Name: ANDRÉS KENYON Address: home [address] [place] [id number]
--- OUTSIDE RECORDS SUMMARY | 2024-03-21 05:42 | XMS_ITS | Continuity of Care Document ---
Author Organization [facility] Address [address] [facility], [address] Floor, [address] [place] [address]- Care Team Providers Care Managing Jeweler Name Role Phone Adrian Jimenes MD Primary Care Physician Encounter [facility] Date(s): 01/28/20 - 04/13/20 [facility] [address], [address], [address] [place] [address] [facility] Attending Physician: Callie Lopez MD Admitting Physician: Callie Lopez MD Allergies, Adverse Reactions, Alerts Substance Reaction Severity Status NKA Active Medications docusate sodium 50 mg oral capsule 1 capsule = 50 mg, By Mouth, 2 times a day, # 14 capsule, 0 Refills, Maintenance, 05/16/18 10:17:06EDT, Capsule Start Date: 05/16/18 Stop Date: 05/23/18 Status: Ordered Donut Doncynthia, See Instructions, # 1 units, Refills 0, Tot. Refills 0, Maintenance, Sitting donut for coccyx, 05/16/18 10:24:58 EDT, Compound Start Date: 05/16/18 Status: Ordered Flexeril 10 mg oral tablet 1 tablet = 10 mg, By Mouth, 3 times a day, PRN for spasm, # 30 tablet, 0 Refills, Maintenance, Tablet Start Date: 11/27/10 Status: Ordered Naprosyn 500 mg oral tablet 1 tablet = 500 mg, By Mouth, 2 times a day, # 60 tablet, 0 Refills, Maintenance, Tablet Start Date: 11/27/10 Status: Ordered oxyCODONE 5 mg oral tablet 5 mg, By Mouth, Every 6 hours, PRN, # 7 tablet, Refills 0, Tot. Refills 0, Soft Stop, Pain , Severe, 05/16/18 10:16:25 EDT, Print Requisition Start Date: 05/16/18 Stop Date: 05/18/18 Status: Ordered Percocet-5/325 325 mg-5 mg oral tablet 1 tablet, By Mouth, Every 4 hours, PRN for pain, # 20 tablet, 0 Refills, Maintenance, Tablet Start Date: 11/27/10 Status: Ordered riboflavin 400 mg oral capsule 1 capsule = 400 mg, By Mouth, Daily, # 100 capsule, 2 Refills, Maintenance, 07/27/19 10:02:00 EST, Capsule, [facility], 113.1, kg, 06/25/18 20:33:00 EST, Dry Weight Start Date: 07/27/19 Status: Ordered Social History Social History Type Response Sex Male
--- OUTSIDE RECORDS SUMMARY | 2024-03-21 05:42 | XMS_ITS | Continuity of Care Document ---
Author Organization [facility] ter Address [address] [place] [address]- Care Team Providers Care Booster Pump Operator Name Role Phone Dee CALDWELL, Carmen Primary Care Physician Encounter [facility] Date(s): 07/26/21 - 07/26/[address] [address]- Discharge Disposition: A-D/C Home Attending Physician: Gabriel Murphy MD Admitting Physician: Gabriel Murphy MD Referring Physician: Not on Staff, Referring MD Allergies, Adverse Reactions, Alerts No Known Medication Allergies Medications MiraLax oral powder for reconstitution = 17 Gm, By Mouth, Daily, for 3 days, dissolve in water before taking, # 51 Gm, 0 Refills, Acute 07/29/21 18:09:00 EST, 07/26/21 18:09:00 EST, REC Powder, [id number], Partial fill upon patient request if the prescription is for a schedule II o... Start Date: 07/26/21 Stop Date: 07/29/21 Status: Ordered MorPHINE Inj 2 mg, Injection, IV Push Slowly, Every 5 minutes for 3 doses/times, PRN for Pain , Moderate, and SBP greater than 100, Routine, 07/26/21 14:32:00 EST, Stop date Limited # of times Start Date: 07/26/21 Stop Date: 07/27/21 Status: Discontinued Vital Signs Most recent to oldest [Reference Range]: 1 2 3 Oxygen Saturation [94-100 %] 97 % (07/26/21 6:00 PM) 98 % (07/26/21 4:02 PM) 99 % (07/26/21 1:40 PM) Pulse Rate [55-90 bpm] 65 bpm (07/26/21 6:00 PM) 69 bpm (07/26/21 4:02 PM) 67 bpm (07/26/21 1:40 PM) Blood Pressure [90-138/55-84 mm Hg] 147/95mm Hg *H* (07/26/21 6:00 PM) 164/100mm Hg *H* (07/26/21 4:02 PM) 188/121mm Hg *H* (07/26/21 1:40 PM) Respiratory Rate [16-30 br/min] 18 br/min (07/26/21 6:00 PM) 19 br/min (07/26/21 4:02 PM) 22 br/min (07/26/21 2:11 PM) Temperature [96.8-100.4 DegF] 98.8 DegF (07/26/21 6:00 PM) 98.8 DegF (07/26/21 4:02 PM) 98.8 DegF (07/26/21 1:40 PM) Mode of Delivery (Oxygen) Room air (07/26/21 6:00 PM) Room air (07/26/21 4:02 PM) Room air (07/26/21 1:40 PM) Blood pressure sites Arm, left (07/26/21 6:00 PM) Arm, left (07/26/21 4:02 PM) Arm, left (07/26/21 1:40 PM) Temperature Route Oral (07/26/21 6:00 PM) Oral (07/26/21 4:02 PM) Oral (07/26/21 1:40 PM)
--- OUTSIDE RECORDS SUMMARY | 2024-03-21 05:42 | XMS_ITS | Continuity of Care Document ---
Author Organization [facility] Address [address] [facility], [address] Floor, [address] [place] [address]- Care Team Providers Care Oil Pit Attendant Name Role Phone Jalil PAUL, Adrian Crawley Primary Care Physician [phone] [place] [facility] Date(s): 09/13/19 - 09/23/19 [facility] [address], [address], [address] [place] [address]- [facility] Attending Physician: Admtr, Ar8 Admitting Physician: Admtr, Ar8 Referring Physician: Admtr, Ar8 Allergies, Adverse Reactions, Alerts Substance Reaction Severity Status NKA Active Medications docusate sodium 50 mg oral capsule 1 capsule = 50 mg, By Mouth, 2 times a day, # 14 capsule, 0 Refills, Maintenance, 05/16/18 10:17:06EDT, Capsule Start Date: 05/16/18 Stop Date: 05/23/18 Status: Ordered Donut Whitney, See Instructions, # 1 units, Refills 0, [...] 2 Refills, Maintenance, 07/27/19 10:02:00 EST, Capsule, [facility], 113.1, kg, 06/25/18 20:33:00 EST, Dry Weight Start Date: 07/27/19 Status: Ordered Social History Social History Type Response Sex Male
--- OUTSIDE RECORDS SUMMARY | 2024-03-21 05:42 | XMS_ITS | Continuity of Care Document ---
Author Organization [facility] ter Address [address] [place] [address]- Care Team Providers Care Java Software Architect Name Role Phone Not on Staff, PCP Primary Care Physician Unavail able Encounter [facility] [place] Date(s): 04/27/22 - 04/28/[address] [address]- Discharge Disposition: A-D/C Walkout Attending Physician: Not on Staff, Attending MD Admitting Physician: Not on Staff, Admitting MD Referring Physician: Not on Staff, Referring MD Allergies, Adverse Reactions, Alerts No Known Allergies Medications melatonin 3 mg oral tablet, extended release 1 tablet = 3 mg, By Mouth, Daily at bedtime, # 30 tablet, 0 Refills, Maintenance, 12/25/20 16:38:00EDT, ER Tablet, [facility], Partial fill upon patient request if the prescription is for a schedule II opioid drug., 1 tablet By Mouth Da... Start Date: 12/25/20 Status: Ordered mirtazapine 15 mg oral tablet See Instructions, 0.5 tablet By Mouth Daily at bedtime for 1 week Followed by 1 tablet daily onwards., # 25 tablet, 0 Refills, Maintenance, 12/25/20 16:40:00 EDT, Tablet, [facility], Partial fill upon patient request if the prescription... Start Date: 12/25/20 Status: Ordered naproxen 500 mg oral tablet TAKE 1 TABLET BY MOUTH TWO TIMES A DAY FOR 5 DAYS Start Date: 10/19/21 Status: Ordered ondansetron 4 mg oral tablet TAKE 1 TABLET BY MOUTH EVERY 6 TO 8 HOURS NEEDED FOR NAUSEA DIRECTED Start Date: 10/19/21 Status: Ordered oxyCODONE 5 mg oral tablet TAKE 1 TABLET BY MOUTH EVERY 4 TO 6 HOURS NEEDED FOR PAIN DIRECTED (DO NOT DRIVE WHILE ON THIS MEDICATION) Start Date: 10/19/21 Status: Ordered Vital Signs Most recent to oldest [Reference Range]: 1 2 Oxygen Saturation [94-100 %] 100 % (04/27/22 7:07 PM) 99 % (04/27/22 6:54 PM) Pulse Rate [55-90 bpm] 89 bpm (04/27/22 7:07 PM) 108 bpm *H* (04/27/22 6:54 PM) Blood Pressure [90-138/55-84 mm Hg] 165/ 107mm Hg *H* (04/27/22 7:07 PM) 171/106mm Hg *H* (04/27/22 7:07 PM) Respiratory Rate [16-30 br/min] 24 br/mi n (04/27/22 7:07 PM) Temperature [96.8-100.4 DegF] 98.6 DegF (04/27/22 7:07 PM) Mode of Delivery (Oxygen) Room air (04/27/22 7:07 PM) Room air (04/27/22 6:54 PM) Blood pressure sites Arm, right (04/27/22 7:07 PM) Arm, left (04/27/22 7:07 PM) Temperature Route Oral (04/27/22 7:07 PM) Social History Social History Type Response Sex Male Patient Care team information Personnel Name: Not on Staff, PCP
--- OUTSIDE RECORDS SUMMARY | 2024-03-21 05:42 | XMS_ITS | Continuity of Care Document ---
Author Organization [facility] ter Address [address] [place] [address]- Care Team Providers Care Financial Coordinator Name Role Phone Not on Staff, PCP Primary Care Physician Unavail able Encounter [facility] [place] Date(s): 07/19/19 - 07/19/[address] [address]- [facility] Encounter Diagnosis Weakness(Final) - 07/19/19 Paresthesias(Final) - 07/19/19 Discharge Disposition: A-D/C Home Attending Physician: Johnny Zamudio MD Admitting Physician: Johnny Zamudio MD Referring Physician: Not on Staff, Referring MD Allergies, Adverse Reactions, Alerts No Known Medication Allergies Medications Hydrochlorothiazide By Mouth, Daily, 0 Refills, Maintenance, 03/26/19 13:43:50 EDT Start Date: 03/26/19 Status: Ordered lisinopril 10 mg oral tablet 10 mg, 1, tablet, By Mouth, Daily, # 30 tablet, Refills 0, Maintenance, 06/25/19 7:29:46 EST Start Date: 06/25/19 Status: Ordered Vital Signs Most recent to oldest [Reference Range]: 1 2 Oxygen Saturation [94-100 %] 98 % (07/19/19 2:05 PM) 98 % (07/19/19 1:35 PM) Pulse Rate [55-90 bpm] 73 bpm (07/19/19 2:05 PM) 72 bpm (07/19/19 1:35 PM) Blood Pressure [90-138/55-84 mm Hg] 137/ 91mm Hg (07/19/19 2:05 PM) 100/75mm Hg (07/19/19 1:35 PM) Respiratory Rate [16-30 br/min] 17 br/mi n (07/19/19 2:05 PM) 18 br/min (07/19/19 1:35 PM) Temperature [96.8-100.4 DegF] 98.1 DegF (07/19/19 1:35 PM) Mode of Delivery (Oxygen) Room air (07/19/19 2:05 PM) Room air (07/19/19 1:35 PM) Blood pressure sites Arm, left (07/19/19 2:05 PM) Arm, left (07/19/19 1:35 PM) Temperature Route Oral (07/19/19 1:35 PM)
--- OUTSIDE RECORDS SUMMARY | 2024-03-21 05:42 | XMS_ITS | Continuity of Care Document ---
Author Organization [facility] Address [address] [facility], 3r d Floor, [address] [place] [address]- Care Team Providers Care Racker Octave Board Name Role Phone Adrian Jimenes MD Primary Care Physician [phone] Encounter [facility] [place] Date(s): 07/19/19 - 10/04/19 [facility] [address], [address], [address] [place] [address]- [facility] Attending Physician: Callie Lopez MD Admitting Physician: Callie Lopez MD Referring Physician: Adrian Jimenes MD Allergies, Adverse Reactions, Alerts Substance Reaction Severity Status NKA Active Medications docusate sodium 50 mg oral capsule 1 capsule = 50 mg, By Mouth, 2 times a day, # 14 capsule, 0 Refills, Maintenance, 05/16/18 10:17:06EDT, Capsule Start Date: 05/16/18 Stop Date: 05/23/18 Status: Ordered Donut Donut, See Instructions, # 1 units, Refills 0, [...] 2 Refills, Maintenance, 07/27/19 10:02:00 EST, Capsule, [facility], 113.1, kg, 06/25/18 20:33:00 EST, Dry Weight Start Date: 07/27/19 Status: Ordered Social History Social History Type Response Sex Male
--- OUTSIDE RECORDS SUMMARY | 2024-03-21 05:42 | XMS_ITS | Continuity of Care Document ---
Author Organization [facility] Address [address] [facility], [address]r d Floor, [address] [place] [address]- Care Team Providers Care Suit Attendant Name Role Phone Jalil PAUL, Adrian Crawley Primary Care Physician [phone] Encounter [facility] [place] Date(s): 07/27/19 - 10/03/19 [facility] [address], [address] Floor, [address] [place] [address]- [facility] Attending Physician: Callie Lopez MD Admitting Physician: Callie Lopez MD Allergies, Adverse Reactions, Alerts Substance Reaction Severity Status NKA Active Medications docusate sodium 50 mg oral capsule 1 capsule = 50 mg, By Mouth, 2 times a day, # 14 capsule, 0 Refills, Maintenance, 05/16/18 10:17:06EDT, Capsule Start Date: 05/16/18 Stop Date: 05/23/18 Status: Ordered Whitney Olson, See Instructions, # 1 units, Refills 0, [...] 2 Refills, Maintenance, 07/27/19 10:02:00 EST, Capsule, [facility], 113.1, kg, 06/25/18 20:33:00 EST, Dry Weight Start Date: 07/27/19 Status: Ordered Social History Social History Type Response Sex Male
--- OUTSIDE RECORDS SUMMARY | 2024-03-21 05:42 | XMS_ITS | Continuity of Care Document ---
Author Organization [facility] Address [address] [facility], 3r d Floor, [address] [place] [address]- Care Team Providers Care Hay Sorter Name Role Phone Adrian Jimenes MD Primary Care Physician [phone] [place] [facility] [place] Date(s): 03/14/20 - 04/13/20 [facility] [address], [address], [address] [place] [address]- [facility] Attending Physician: Admtr, Ar8 Admitting Physician: Admtr, [...] Refills, Maintenance, 07/27/19 10:02:00 EST, Capsule, [facility], 113.1, kg, 06/25/18 20:33:00 EST, Dry Weight Start Date: 07/27/19 Status: Ordered Social History Social History Type Response Sex Male
--- OUTSIDE RECORDS SUMMARY | 2024-03-21 05:42 | XMS_ITS | Continuity of Care Document ---
Author Organization [facility] ter Address [address] [place] [address]- Care Team Providers Care Carry In Worker Name Role Phone Not on Staff, PCP Primary Care Physician Unavail able [place] [facility] [place] Date(s): 09/01/22 - 09/02/[address] [address]- Encounter Diagnosis Closed right radial fracture(Final) - 09/02/22 Discharge Disposition: A-D/C Home Attending Physician: Wicho Etienne MD Admitting Physician: Wicho Etienne MD Referring Physician: Not on Staff, Referring MD Allergies, Adverse Reactions, Alerts No Known Allergies Medications Aspirin Enteric Coated 325 mg oral delayed release tablet 1 tablet = 325 mg, By Mouth, Daily, as directed take 1 tablet daily for 4 weeks. START THIS MEDICATION ON POST OP DAY1, 0 Refills, Maintenance, 05/26/22 12:19:00 EDT, Partial fill upon patient request if the prescription is for a schedule II opioid drug. Start Date: 05/26/22 Status: Ordered Dilaudid Inj 1 mg, Injection, IV Push Slowly, Once, STAT, 09/02/22 0:24:00 EST, Stop date 09/02/22 0:24:00 EST Start Date: 09/02/22 Stop Date: 09/02/22 Status: Completed Dilaudid Inj 1 mg, Injection, IV Push Slowly, Once, STAT, 09/02/22 1:45:00 EST, Stop date 09/02/22 1:45:00 EST Start Date: 09/02/22 Stop Date: 09/02/22 Status: Completed Naproxen = 500 mg, By Mouth, twice a day 1 TAB TWICE A DAY FOR 5 DAYS, 0 Refills, Maintenance, 05/26/22 12:20:00 EDT, Partial fill upon patient request if the prescription is for a schedule II opioid drug. Start Date: 05/26/22 Status: Ordered Ondansetron = 4 mg, as directed 1 tab po q 6-8 hrs as needed for nausea, 0 Refills, Maintenance, 05/26/22 12:18:00 EDT, Partial fill upon patient request if the prescription is for a schedule II opioid drug. Start Date: 05/26/22 Status: Ordered Oxycodone = 5 mg, By Mouth, as directed 1 tab po q 4-6 hrs prn pain. DO NOT DRIVE WHILE TAKING THIS MEDICATION, 0 Refills, Maintenance, 05/26/22 12:18:00 EDT, Partial fill upon patient request if the prescription is for a schedule II opioid drug. Start Date: 05/26/22 Status: Ordered oxyCODONE 5 mg oral tablet 5 mg, 1, tablet, By Mouth, Every 6 hours, # 5 tablet, Refills 0, Tot. Refills 0, Acute 09/09/22 5:00:00 EST, 09/02/22 1:51:00 EST, Route to Pharmacy Electronically, [phone], Partial fill upon patient request if the prescription is... Start Date: 09/02/22 Stop Date: 09/09/22 Status: Ordered Results Radiology Reports * Exam Date Time Procedure Performing Provider Status 09/02/22 2:49 AM Wrist Comp Min 3 Views Right Perla Arguello (Verified) Notes: (Wrist Comp Min 3 Views Right) Reason For Exam: Pain RESULT: Wrist Comp Min 3 Views Right Wrist Comp Min 3 Views Right Hx of Present Illness: Pt ambulated to chair. Pt reports that he fell on R hand arm complaining go wrist pain c limited movement to fingers, elbow moves without difficulty.; Reason: Pain; Clinical Question(s): Fracture; Special Instructions: Need good lateral view please :) COMPARISON: Right hand radiographs dated 09/01/2022. FINDINGS: As seen on the hand radiographs, there is an impacted fracture of the distal radial metaphysis. There is minimal dorsal angulation of the distal radial fracture fragment. No evidence of intra-articular extension. No additional fracture seen. No arthritic change. Normal carpal configuration. Mild soft tissue swelling. IMPRESSION: Impacted mildly dorsally angulated distal radial metaphyseal fracture. WSN: [id number] Ordering Physician: Brody Chow Dictated By: Kelly Gorman MD Dictated Date/Time: 09/02/22 8:43 am Reviewed By: Kelly Gorman MD Signed By: Kelly Gorman MD Signed Date/Time: 09/02/22 8:43 am Transcribed By: MARIA DEL CARMEN Transcribed Date/Time: 09/02/22 8:15 am * Exam Date Time Procedure Performing Provider Status 09/01/22 11:05 PM Hand Min 3 Views Right Vielka Guerrero en; Auth (Verified) Notes: (Hand Min 3 Views Right) Reason For Exam: with Pain;Trauma RESULT: Hand Min 3 Views Right Hand Min 3 Views Right, 3 views Hx of Present Illness: Pt ambulated to chair. Pt reports that he fell on R hand arm complainin gof wrist pain c limited movement to fingers, elbow moves without difficulty.; Reason: Trauma; with Pain; Clinical Question(s): Fracture; Special Instructions: This is a protocol film and radiologist should call any findings to the Charge Nurse COMPARISON: None. FINDINGS: Comminuted fracture through the distal radius. Suspected intra-articular extension. No arthritic changes. Normal soft tissues. IMPRESSION: Distal radial fracture with comminution and volar apex angulation. Possible intra-articular extension. WSN: [id number] Ordering Physician: Ellis Willis Dictated By: Pranay Chirinos MD Dictated Date/Time: 09/01/22 11:11 p Reviewed By: Pranay Chirinos MD Signed By: Pranay Chirinos MD Signed Date/Time: 09/01/22 11:11 pm Transcribed By: MARIA DEL CARMEN Transcribed Date/Time: 09/01/22 11:09 pm Vital Signs Most recent to oldest [Reference Range]: 1 2 3 Oxygen Saturation [94-100 %] 100 % (09/02/22 1:56 AM) 97 % (09/02/22 12:12 AM) 98 % (09/01/22 10:43 PM) Pulse Rate [55-90 bpm] 76 bpm (09/02/22 1:56 AM) 74 bpm (09/02/22 12:12 AM) 88 bpm (09/01/22 10:43 PM) Blood Pressure [90-138/55-84 mm Hg] 185/107mm Hg *H* (09/02/22 1:56 AM) 177/104mm Hg *H* (09/02/22 12:12 AM) 182/118mm Hg *H* (09/01/22 10:43 PM) Respiratory Rate [16-30 br/min] 16 br/min (09/02/22 1:56 AM) 18 br/min (09/02/22 1:54 AM) 18 br/min (09/02/22 1:03 AM) Temperature [96.8-100.4 DegF] 98.7 DegF (09/01/22 10:43 PM) 98.2 DegF (09/01/22 9:59 PM) Mode of Delivery (Oxygen) Room air (09/02/22 1:56 AM) Room air (09/01/22 10:43 PM) Room air (09/01/22 9:59 PM) Blood pressure sites Arm, left (09/02/22 1:56 AM) Arm, left (09/01/22 10:43 PM) Arm, left (09/01/22 9:59 PM) Temperature Route Oral (09/01/22 10:43 PM) Oral (09/01/22 9:59 PM) Social History Social History Type Response Tobacco Use: 4 or less cigar ettes(less than 1/4 pack)/day in last 30 days. Sex Male Note * Brody Chow MD: PERFORM Event Display: Patient Education Leaflets Authored Date: [id number] Broken Wrist (Wrist Fracture) ?? Broken Wrist (Wrist Fracture) - Video Your wrist is a complex joint made up of many bones, allowing you to move your hand up and down, and side to side, as well as to rotate. A fracture can occur in any of these bones when enough force is applied???when you fall on an outstretched hand, for example. In this video, you'll find out othercauses, as well as how a wrist fracture is treated. To view the video go to this web address: https://bit.ly/[email or web address] Or, scan this QR code with your smart phone Last Reviewed Date: 2019 ?? [employer]. All rights reserved. This information is not intended as a substitute for professional medical care. Always follow your healthcare professional's instructions. ?? XR Hand - right GE 3 Views * BHSPowerscribe , CIS S: Pranay Snyder MD: VERIFY Event Display: Result: Authored Date: Hand Min 3 Views Right, 3 views Hx of Present Illness: Pt ambulated to chair. Pt reports that he fell on R hand arm complainin gof wrist pain c limited movement to fingers, elbow moves without difficulty.; Reason: Trauma; with Pain; Clinical Question(s): Fracture; Special Instructions: This is a protocol film and radiologist should call any findings to the Charge Nurse COMPARISON: None. FINDINGS: Comminuted fracture through the distal radius. Suspected intra-articular extension. No arthritic changes. Normal soft tissues. IMPRESSION: Distal radial fracture with comminution and volar apex angulation. Possible intra-articular extension. WSN: [id number] Ordering Physician: Ellis Willis Dictated By: Pranay Chirinos MD Dictated Date/Time: 09/01/22 11:11 p Reviewed By: Pranay Chirinos MD Signed By: Pranay Chirinos MD Signed Date/Time: 09/01/22 11:11 pm Transcribed By: MARIA DEL CARMEN Transcribed Date/Time: 09/01/22 11:09 pm XR Wrist - right GE 3 Views * GIANLUCA Ward S: Kelly Mendieta MD: VERIFY Event Display: Result: Authored Date: [id number] Wrist Comp Min 3 Views Right Hx of Present Illness: Pt ambulated to chair. Pt reports that he fell on R hand arm complaining go wrist pain c limited movement to fingers, elbow moves without difficulty.; Reason: Pain; Clinical Question(s): Fracture; Special Instructions: Need good lateral view please :) COMPARISON: Right hand radiographs dated 09/01/2022. FINDINGS: As seen on the hand radiographs, there is an impacted fracture of the distal radial metaphysis. There is minimal dorsal angulation of the distal radial fracture fragment. No evidence of intra-articular extension. No additional fracture seen. No arthritic change. Normal carpal configuration. Mild soft tissue swelling. IMPRESSION: Impacted mildly dorsally angulated distal radial metaphyseal fracture. WSN: [id number] Ordering Physician: Brody Chow Dictated By: Kelly Gorman MD Dictated Date/Time: 09/02/22 8:43 am Reviewed By: Kelly Gorman MD Signed By: Kelly Gorman MD Signed Date/Time: 09/02/22 8:43 am Transcribed By: CSB Transcribed Date/Time: 09/02/22 8:15 am Patient Care team information Care Team Personnel Name: Not on Staff, PCP Position: [facility] Physician (General Medicine) Member Role: PCP Name: Alcon Bravo Position: [facility] ED TA [facility] Member Role: ED Associate Name: Brody Chow MD Position: [facility] Resident Member Role: ED Resident Address: Address: [address] [place] [address] Name: Wicho Stanford RN Position: [facility] ED RN W/OE and Tasks Member Role: Patient Care Provider Name: Wicho Etienne MD Position: [facility] Resident Member Role: ED Attending Physician Address: Address: [address] [place] [address]- Care Team Related Persons Name: AYDEN HARVEY Address: home [address] [place] [id number] Name: ANDRÉS KENYON Address: home [address] [place] [address]
--- OUTSIDE RECORDS SUMMARY | 2024-03-21 05:42 | XMS_ITS | Continuity of Care Document ---
Author Organization [facility] Address [address] [facility], [address] d Floor, [address] [place] [address]- Care Team Providers Care Simonizer Name Role Phone Jalil PAUL, Adrian Crawley Primary Care Physician [place] [facility] [place]/13[place]19 - 09/20/19 [facility] [address], [address], [address] [place] [address]- [facility] Attending Physician: Callie Lopez MD Allergies, Adverse Reactions, [...] 05/16/18 10:16:25 EDT, Print Requisition Start Date: 10/16/18 Stop Date: 05/18/18 Status: Ordered Percocet-5/325 325 mg-5 mg oral tablet 1 tablet, By Mouth, Every 4 hours, PRN for pain, # 20 tablet, 0 Refills, Maintenance, Tablet Start Date: 11/27/10 Status: Ordered riboflavin 400 mg oral capsule 1 capsule = 400 mg, By Mouth, Daily, # 100 capsule, 2 Refills, Maintenance, 07/27/19 10:02:00 EST, Capsule, , 113.1, kg, 06/25/18 20:33:00 EST, Dry Weight Start Date: 07/27/19 Status: Ordered Social History Social History Type Response Sex Male
--- OUTSIDE RECORDS SUMMARY | 2024-03-21 05:42 | XMS_ITS | Continuity of Care Document ---
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 Name Role Phone Not on Staff, PCP Primary Care Physician Unavail able Encounter [facility] [place] Date(s): 10/07/23 - 10/09/[address] [id number] Encounter Diagnosis Hypertensive emergency(Final) - 10/07/23 Discharge Disposition: A-D/C Home Attending Physician: Cody Buitrago DO Admitting Physician: Arcelia PAUL, Christy Contreras Referring Physician: Not on Staff, Referring MD Allergies, Adverse Reactions, Alerts No Known Allergies Medications Dilaudid Inj 0.5 mg, Injection, IV Push Slowly, Every 4 hours for 2 days, Hold for: if pt is too sedated, RR<9, sbp<100, PRN for Pain , Severe, Routine, 10/08/23 0:09:00 EST, Stop date 10/10/23 0:08:00 EDT Start Date: 10/08/23 Stop Date: 10/09/23 Status: Discontinued hydrochlorothiazide 25 mg oral tablet 25 mg, By Mouth, Daily, # 30 capsule, Refills 0, Tot. Refills 0, Maintenance, 10/09/23 9:02:00 EDT,Route to Pharmacy Electronically, [facility], Partial fill upon patient request if the prescription is for a schedule II opioid drug., 18... Start Date: 10/09/23 Stop Date: 11/08/23 Status: Ordered hydrOXYzine hydrochloride 10 mg oral tablet = 50 mg, By Mouth, 3 times a day, PRN Anxiety, for 30 days, # 90 capsule, 0 Refills, Acute 249:02:00 EDT, 10/09/23 9:02:00 EDT, Tablet, [facility], Partial fill upon patient request if the prescription is for a schedule II opioid... Start Date: 10/09/23 Stop Date: 11/08/23 Status: Ordered Lexapro 10 mg oral tablet = 10 mg, By Mouth, Daily, # 30 capsule, 0 Refills, Maintenance, 10/09/23 9:01:00 EDT, Tablet, [facility], Partial fill upon patient request if the prescription is for a schedule II opioid drug., 180, cm, 10/09/23 8:51:00 EDT, Height, 110... Start Date: 10/09/23 Stop Date: 11/08/23 Status: Ordered NIFEdipine 60 mg oral tablet, extended release 60 mg, ER Tablet, By Mouth, 10/09/23 9:00:00 EDT Start Date: 10/09/23 Stop Date: 10/09/23 Status: Completed NIFEdipine 60 mg oral tablet, extended release 60 mg, By Mouth, Daily, # 30 capsule, Refills 0, Tot. Refills 0, Maintenance, 10/09/23 9:02:00 EDT,Route to Pharmacy Electronically, [facility], Partial fill upon patient request if the prescription is for a schedule II opioid drug., 18... Start Date: 10/09/23 Stop Date: 11/08/23 Status: Ordered Potassium Chloride (Eqv-K-Tab) 20 mEq oral tablet, extended release 1 tablet = 20 mEq, By Mouth, Daily, # 30 tablet, 0 Refills, Maintenance, 10/09/23 9:03:00 EDT, [facility], Partial fill upon patient request if the prescription is for a schedule II opioid drug., 180, cm, 10/09/23 8:51:00 EDT, Height, 11... Start Date: 10/09/23 Stop Date: 11/08/23 Status: Ordered Problem List Condition Confirmation Course Effective Dates Status Health St atus Informant Obese class I Confirmed Active Results Radiology Reports * Exam Date Time Procedure Performing Provider Status 10/07/23 4:[address] Angio Abdomen Trinh Miller; Auth (Verified) Notes: (CT Angio Abdomen) Reason For Exam: Renal artery dissection suspected;Other: RESULT: CT Angio Abdomen EXAMINATION: CT Angio Chest, CT Angio Abdomen Reason: Headache, dizziness and left-sided weakness; Aortic disease, nontraumatic; Clinical Question(s): Other:; Aortic Dissection TECHNIQUE: An initial noncontrast CT of the chest was performed. Spiral CTA of the chest and abdomen was performed after rapid IV contrast administration without cardiac gating triggered by an MAHI onthe aorta. Images are formatted in multiple planes using 2-D multiplanar and 3-D maximum intensity projection. Obliqued images through the aortic root were reconstructed. 100 cc of Omnipaque 300 was administered intravenously. Weight-based protocol using automatic tube modulation was used to optimize exposure parameters. CTDIvol Body: 13.22 mGy, DLP Body: 402 mGy*cm. COMPARISONS: CT abdomen/pelvis with IV contrast-07/26/[address] abdomen/pelvis-03/29/2023. ANGIOGRAPHIC FINDINGS: No aortic dissection or aneurysm. Normal three vessel arch without branch vessel stenosis. Pulmonary arteries are normal in caliber. No evidence of central pulmonary embolism on this study performed without dedicated technique. Abdominal aorta: No aortic aneurysm or dissection. Celiac axis: Patent. Superior mesenteric artery: Patent. Right renal artery: Single patent artery. Left renal artery: Single patent artery. Inferior mesenteric artery: Patent. Visualized iliac arteries: Patent. NON-ANGIOGRAPHIC FINDINGS: Meat Grinder View Findings, Lines and Tubes: None. Trachea and Airways: Patent without evidence of tracheal or endobronchial lesion. Lungs and Pleura: * No consolidation. * 4 mm posterior right lower lobe nodule measuring is unchanged from 2019 (604:51). * 2 minor right upper lobe nodule (604:22), unchanged from 2019. * Some focal ground glass attenuation in the subpleural right lower lobe (604:47) probably reflectsatelectasis. * No effusion or pneumothorax. Mediastinum and galina: No mass or hematoma. No mediastinal or hilar lymphadenopathy. No esophageal abnormality. Partially imaged thyroid is unremarkable. Heart: Heart is normal in size. Thickened left ventricular wall, likely reflecting left ventricularhypertrophy. No pericardial effusion. No coronary arterial calcifications. Chest Wall Soft Tissues: Normal. Diaphragm : Intact. Liver: Diffuse low-attenuation throughout the liver parenchyma consistent with hepatic steatosis. No evidence of mass. Gallbladder: Contracted state of the gallbladder. No definite evidence of gallbladder pathology. Bile ducts: No biliary ductal dilation. Spleen: Normal. Pancreas: Normal. Adrenal glands: Normal. Kidneys and ureters: No hydronephrosis, stones, or suspicious masses. Unchanged subcentimeter rightupper pole hypodense lesion, likely a simple cyst. Stomach, small bowel, and large bowel: Visualized stomach and bowel are normal. Normal diameter appendix. Peritoneum and retroperitoneum: No ascites or pneumoperitoneum. No omental or mesenteric lesions. Lymph nodes: No enlarged lymph nodes. Abdominal wall: Tiny fat-containing umbilical hernia. Bones: No acute osseous abnormality. Mild multilevel degenerative changes of the visualized spine. Mild retrolisthesis of L5 on S1. Probable bone islands in the left humeral head. IMPRESSION: No aortic aneurysm or dissection. No evidence of an acute abnormality within the chest or abdomen. I have personally reviewed the images and I agree with this report. WSN: [id number] Ordering Physician: Sammie Cummins Dictated By: Arvind Kelsey MD Dictated Date/Time: 10/07/23 5:16 pm Reviewed By: Magdi Christian MD Signed By: Magdi Christian MD Signed Date/Time: 10/07/23 5:21 pm Transcribed By: MARIA DEL CARMEN Transcribed Date/Time: 10/07/23 4:47 pm * Exam Date Time Procedure Performing Provider Status 10/07/23 4:[address] Angio Chest Trinh Miller; Auth (V erified) Notes: (CT Angio Chest) Reason For Exam: Aortic disease, nontraumatic;Other: RESULT: CT Angio Chest EXAMINATION: CT Angio Chest, CT Angio Abdomen Reason: Headache, dizziness and left-sided weakness; Aortic disease, nontraumatic; Clinical Question(s): Other:; Aortic Dissection TECHNIQUE: An initial noncontrast CT of the chest was performed. Spiral CTA of the chest and abdomen was performed after rapid IV contrast administration without cardiac gating triggered by an MAHI ont aorta. Images are formatted in multiple planes using 2-D multiplanar and 3-D maximum intensity projection. Obliqued images through the aortic root were reconstructed. 100 cc of Omnipaque 300 was administered intravenously. Weight-based protocol using automatic tube modulation was used to optimize exposure parameters. CTDIvol Body: 13.22 mGy, DLP Body: 402 mGy*cm. COMPARISONS: CT abdomen/pelvis with IV contrast-07/26/[address] abdomen/pelvis-03/29/2023. ANGIOGRAPHIC FINDINGS: No aortic dissection or aneurysm. Normal three vessel arch without branch vessel stenosis. Pulmonary arteries are normal in caliber. No evidence of central pulmonary embolism on this study performed without dedicated technique. Abdominal aorta: No aortic aneurysm or dissection. Celiac axis: Patent. Superior mesenteric artery: Patent. Right renal artery: Single patent artery. Left renal artery: Single patent artery. Inferior mesenteric artery: Patent. Visualized iliac arteries: Patent. NON-ANGIOGRAPHIC FINDINGS: Meat Grinder View Findings, Lines and Tubes: None. Trachea and Airways: Patent without evidence of tracheal or endobronchial lesion. Lungs and Pleura: * No consolidation. * 4 mm posterior right lower lobe nodule measuring is unchanged from 2019 (604:51). * 2 minor right upper lobe nodule (604:22), unchanged from 2019. * Some focal ground glass attenuation in the subpleural right lower lobe (604:47) probably reflectsatelectasis. * No effusion or pneumothorax. Mediastinum and galina: No mass or hematoma. No mediastinal or hilar lymphadenopathy. No esophageal abnormality. Partially imaged thyroid is unremarkable. Heart: Heart is normal in size. Thickened left ventricular wall, likely reflecting left ventricularhypertrophy. No pericardial effusion. No coronary arterial calcifications. Chest Wall Soft Tissues: Normal. Diaphragm : Intact. Liver: Diffuse low-attenuation throughout the liver parenchyma consistent with hepatic steatosis. No evidence of mass. Gallbladder: Contracted state of the gallbladder. No definite evidence of gallbladder pathology. Bile ducts: No biliary ductal dilation. Spleen: Normal. Pancreas: Normal. Adrenal glands: Normal. Kidneys and ureters: No hydronephrosis, stones, or suspicious masses. Unchanged subcentimeter rightupper pole hypodense lesion, likely a simple cyst. Stomach, small bowel, and large bowel: Visualized stomach and bowel are normal. Normal diameter appendix. Peritoneum and retroperitoneum: No ascites or pneumoperitoneum. No omental or mesenteric lesions. Lymph nodes: No enlarged lymph nodes. Abdominal wall: Tiny fat-containing umbilical hernia. Bones: No acute osseous abnormality. Mild multilevel degenerative changes of the visualized spine. Mild retrolisthesis of L5 on S1. Probable bone islands in the left humeral head. IMPRESSION: No aortic aneurysm or dissection. No evidence of an acute abnormality within the chest or abdomen. I have personally reviewed the images and I agree with this report. WSN: [id number] Ordering Physician: Sammie Cummins Dictated By: Arvind Kelsey MD Dictated Date/Time: 10/07/23 5:16 pm Reviewed By: Magdi Christian MD Signed By: Magdi Christian MD Signed Date/Time: 10/07/23 5:21 pm Transcribed By: MARIA DEL CARMEN Transcribed Date/Time: 10/07/23 4:47 pm * Exam Date Time Procedure Performing Provider Status 10/07/23 4:[address] Angio Neck Hyperacute Stroke Trinh Miller; Auth (Verified) Notes: (CT Angio Neck Hyperacute Stroke) Reason For Exam: Aneurysm, neck vessel(s);Other: RESULT: CT Angio Neck Hyperacute Stroke CT Angio Head Hyperacute Stroke, CT Angio Neck Hyperacute Stroke Hx of Present Illness: RUIZ Dizziness left sided weakness, cp; Reason: Other:; Stroke; Clinical Question(s): Other:; Hematoma Aneurysm / Other: TECHNIQUE: CT angiogram of the head and neck was performed after bolus administration of intravenous contrast. 100 mL of Omnipaque 300 was administered intravenously. Coronal and sagittal MIP reformatted images were obtained. Additional 3-D images were created on a separate workstation under concurrent supervision by the attending radiologist. All stenoses are measured using NASCET criteria. Weight-based protocol using automatic tube modulation was used to optimize exposure parameters. RADIATION DOSE PARAMETERS: CTDIvol Body: 30.03 mGy, DLP Body: 1021 mGy*cm. CTDIvol Head: 44.44 mGy, DLP Head: 800 mGy*cm. COMPARISON: Noncontrast CT head performed concurrently. FINDINGS: CTA OF THE NECK: Arch: There is a three vessel aortic arch. The origins of the supra aortic vessels are patent. Right carotid system: The common carotid and cervical internal carotid arteries are patent. No stenosis (0%) by NASCET criteria. There is no dissection or aneurysm. Left carotid system: The common carotid and cervical internal carotid arteries are patent. No stenosis (0%) by NASCET criteria. There is no dissection or aneurysm. There is a co-dominant vertebral artery system. Right vertebral: No significant stenosis. No evidence of dissection or aneurysm. Left vertebral: No significant stenosis. No evidence of dissection or aneurysm. Other: Soft tissues and bones: No evidence of lymphadenopathy or mass. The thyroid is unremarkable. Visualized lung apices are clear. No acute osseous abnormality. CTA OF THE HEAD: Anterior circulation: Bilateral intracranial ICAs and their KERRY and MCA branches are patent. There is no significant stenosis, proximal cutoff, aneurysm, or vascular malformation. Several distal edges are mildly degraded by motion artifact. Posterior circulation: Bilateral intracranial vertebral arteries, the basilar artery, and bilateralsuperior cerebellar and posterior cerebral branches are patent. There is predominantly supplyto the left EMBEDDED SOFTWARE DEVELOPMENT ENGINEER with hypoplastic left P1 segment. There is no significant stenosis, proximal cutoff, aneurysm, or vascular malformation. Veins: Major dural venous sinuses are patent. Other: Soft tissues and bones: No midline shift or effacement of the basal cisterns. No space-occupying hemorrhage. No territorial loss of alex-white matter differentiation. Orbits are unremarkable. No significant opacification in the paranasal sinuses or mastoid air cells. IMPRESSION: No proximal occlusion, high grade stenosis, or other significant abnormality of the major arteries of the head and neck. WSN: [id number] Ordering Physician: Sammie Cummins Dictated By: Melissa Sorensen MD Dictated Date/Time: 10/07/23 5:24 pm Reviewed By: Melissa Sorensen MD Signed By: Melissa Sorensen MD Signed Date/Time: 10/07/23 5:24 pm Transcribed By: MARIA DEL CARMEN Transcribed Date/Time: 10/07/23 4:15 pm * Exam Date Time Procedure Performing Provider Status 10/07/23 4:[address] Angio Head Hyperacute Stroke Trinh Miller; Auth (Verified) Notes: (CT Angio Head Hyperacute Stroke) Reason For Exam: Stroke;Other: RESULT: CT Angio Head Hyperacute Stroke CT Angio Head Hyperacute Stroke, CT Angio Neck Hyperacute Stroke Hx of Present Illness: RUIZ Dizziness left sided weakness, cp; Reason: Other:; Stroke; Clinical Question(s): Other:; Hematoma Aneurysm / Other: TECHNIQUE: CT angiogram of the head and neck was performed after bolus administration of intravenous contrast. 100 mL of Omnipaque 300 was administered intravenously. Coronal and sagittal MIP reformatted images were obtained. Additional 3-D images were created on a separate workstation under concurrent supervision by the attending radiologist. All stenoses are measured using NASCET criteria. Weight-based protocol using automatic tube modulation was used to optimize exposure parameters. RADIATION DOSE PARAMETERS: CTDIvol Body: 30.03 mGy, DLP Body: 1021 mGy*cm. CTDIvol Head: 44.44 mGy, DLP Head: 800 mGy*cm. COMPARISON: Noncontrast CT head performed concurrently. FINDINGS: CTA OF THE NECK: Arch: There is a three vessel aortic arch. The origins of the supra aortic vessels are patent. Right carotid system: The common carotid and cervical internal carotid arteries are patent. No stenosis (0%) by NASCET criteria. There is no dissection or aneurysm. Left carotid system: The common carotid and cervical internal carotid arteries are patent. No stenosis (0%) by NASCET criteria. There is no dissection or aneurysm. There is a co-dominant vertebral artery system. Right vertebral: No significant stenosis. No evidence of dissection or aneurysm. Left vertebral: No significant stenosis. No evidence of dissection or aneurysm. Other: Soft tissues and bones: No evidence of lymphadenopathy or mass. The thyroid is unremarkable. Visualized lung apices are clear. No acute osseous abnormality. CTA OF THE HEAD: Anterior circulation: Bilateral intracranial ICAs and their KERRY and MCA branches are patent. There is no significant stenosis, proximal cutoff, aneurysm, or vascular malformation. Several distal edges are mildly degraded by motion artifact. Posterior circulation: Bilateral intracranial vertebral arteries, the basilar artery, and bilateralsuperior cerebellar and posterior cerebral branches are patent. There is predominantly supplyto the left EMB[employer] SOFTWARE DEVELOPMENT ENGINEER with hypoplastic left P1 segment. There is no significant stenosis, proximal cutoff, aneurysm, or vascular malformation. Veins: Major dural venous sinuses are patent. Other: Soft tissues and bones: No midline shift or effacement of the basal cisterns. No space-occupying hemorrhage. No territorial loss of alex-white matter differentiation. Orbits are unremarkable. No significant opacification in the paranasal sinuses or mastoid air cells. IMPRESSION: No proximal occlusion, high grade stenosis, or other significant abnormality of the major arteries of the head and neck. WSN: [id number] Ordering Physician: Sammie Cummins Dictated By: Melissa Sorensen MD Dictated Date/Time: 10/07/23 5:24 pm Reviewed By: Melissa Sorensen MD Signed By: Melissa Sorensen MD Signed Date/Time: 10/07/23 5:24 pm Transcribed By: MARIA DEL CARMEN Transcribed Date/Time: 10/07/23 4:15 pm * Exam Date Time Procedure Performing Provider Status 10/07/23 4:[address] Head-Hyper Acute Stroke Carl Miller; Auth (Verified) Notes: (CT Head-Hyper Acute Stroke) Reason For Exam: Neuro deficit, acute, stroke suspected;Other: RESULT: CT Head-Hyper Acute Stroke CT Head-Hyper Acute Stroke INDICATION: Hx of Present Illness: RUIZ Dizziness left sided weakness, cp; Reason: Other:; Neuro deficit, acute, stroke suspected; Clinical Question(s): Other:; Hematoma Infarction TECHNIQUE: Noncontrast head CT using axial technique and reconstructed in axial and coronal planes.Iterative reconstruction techniques are used to optimize dose and image quality. CTDIvol Body: 30.03 mGy, DLP Body: 1021 mGy*cm. CTDIvol Head: 44.44 mGy, DLP Head: 800 mGy*cm. COMPARISON: 07/05/2021 FINDINGS: The visualized sinuses are free from disease. The ventricular system and subarachnoid spaces are within normal limits. There is no intracranial hemorrhage, mass effect, or midline shift. No intra or extra- axial fluid collections are identified. The osseous structures are unremarkable. IMPRESSION: There is no acute intracranial abnormality. WSN: [id number] Ordering Physician: Sammie Cummins Dictated By: Aislinn Patrick MD Dictated Date/Time: 10/07/23 4:12 pm Reviewed By: Aislinn Patrick MD Signed By: Aislinn Patrick MD Signed Date/Time: 10/07/23 4:12 pm Transcribed By: MARIA DEL CARMEN Transcribed Date/Time: 10/07/23 4:09 pm Vital Signs Most recent to oldest [Reference Range]: 1 2 3 Height 180 cm (10/09/23 8:51 AM) 180 cm (10/07/23 9:58 PM) 180 cm (10/07/23 7:50 PM) Weight 111.5 kg (10/08/23 4:00 PM) 110 kg (10/07/23 9:58 PM) Oxygen Saturation [94-100 %] 100 % (10/09/23 8:51 AM) 100 % (10/09/23 3:00 AM) 100 % (10/08/23 11:00 PM) Pulse Rate [55-90 bpm] 66 bpm (10/09/23 8:51 AM) 65 bpm (10/09/23 8:45 AM) 66 bpm (10/09/23 3:00 AM) Body Mass Index [18.5-24.99 kg/m2] 33.95 kg/m2 *>HHI* (10/07/23 9:58 PM) Blood Pressure [90-138/55-84 mm Hg] 174/118mm Hg *H* (10/09/23 8:51 AM) 168/89mm Hg *H* (10/09/23 8:45 AM) 174/118mm Hg *H* (10/09/23 8:25 AM) Respiratory Rate [16-30 br/min] 18 br/min (10/09/23 9:34 AM) 18 br/min (10/09/23 9:04 AM) 18 br/min (10/09/23 8:51 AM) Temperature [96.8-100.4 DegF] 97.6 DegF (10/09/23 8:51 AM) 98.2 DegF (10/09/23 3:00 AM) 97.8 DegF (10/08/23 11:00 PM) Mode of Delivery (Oxygen) Room air (10/09/23 8:51 AM) Room air (10/09/23 3:00 AM) Room air (10/08/23 11:00 PM) Blood pressure sites Arm, right (10/09/23 8:51 AM) Arm, left (10/09/23 8:45 AM) Arm, left (10/09/23 3:00 AM) Temperature Route Oral (10/09/23 8:51 AM) Oral (10/09/23 3:00 AM) Oral (10/08/23 11:00 PM) Dry Weight 110 kg (10/07/23 9:58 PM) 110.3 kg (10/07/23 9:00 PM) 105 kg (10/07/23 7:50 PM) Weight Obtained Via Bed scale (10/08/23 4:00 PM) Dry Weight Obtained Via Bed scale (10/07/23 9:00 PM) Patient/family stated (10/07/23 3:19 PM) Social History Social History Type Response Smoking Status 10 or more cigarette s (1/2 pack or more)/day in last 30 days entered on: 03/29/23 Sex Male Consult note * Bret Fragoso DO: MODIFY Bret Fragoso DO: MODIFY, MODIFY Bret Fragoso DO: MODIFY, MODIFY, MODIFY, MODIFY, MODIFY, MODIFY Event Display: Consult Authored Date: [id number] Patient: ??RICHIE SIERRA ? Age:??33 Years?Sex:??Male?:??1990?? Chief Complaint/Reason for Consultation Referring Provider:??Lisette PAUL, Zuri Gordon Consulting Attending:??Dr. Fragoso Sources of Information:??Patient; [facility] records ?? Reason(s) for Consultation: evaluate for anxiety leading to her chronic symptoms??concern for??any panic attack/disorder vs PTSD. ?? Sanitation Inspector: N/A, patient is a tejon/fluent Marshallese speaker History of Present Illness 33-year-old male with history of hypertension diagnosed many years ago but not taking any medications came to the ED with complaints of left-sided chest pain radiating to the left arm, left side of the head and left leg. He reported difficulty with anxiety and night-vinson that interrupt his sleep almost nightly to the primary team. Primary team asked psychiaty to evaluate for anxiety and PTSD. Hehad mentioned past episode of sleep-walking in the past to primary team. He is admitted to the?? medical floor for cardiac work??up due to chest pain, and neurology work up given left hand weakness. He was last evaluated by the Psychiatry COnsult team in 2020 due to concern of potential Tylenol overdose in the setting of recent psychosocial stressors, where he was started on Mirtazapine. ?? On assessment Richie is alert and oriented x 4. He does reveal difficulty with sleep, with frequent nightmares and what appears to be some dissociative features at night time. He discloses hx of complex trauma in his younger years, and, is looking for support systems he can go to talk about these difficult experiences. For the past year, he endorses depressed mood, low energy, anhedonia, difficultywith sleep, hopelessness, passive SI but no active SI. He cites his children as an important reasonfor living. He notes that he has never been on an SSRI before. He has never been in therapy before either but would like to try it out. He currently smokes cigarettes, but is ready to quit. In the past he has used cannabis and Etoh frequently but was able to quit these cold turkey. ? Psychiatric ROS Depression:??endorses symptoms of depression, including depressed mood,??anhedonia, sleep,??guiltiness/worthlessness, low energy,??trouble concentrating, loss of/ excessive appetite, psychomotor retardation/ agitation, passive??SI. denies active SI ?? Rene:??denies symptoms of rene, including elated mood, high energy with little to no sleep for consecutive days, racing thoughts, impulsivity. ?? Psychosis:??denies symptoms of psychosis, including auditory or visual hallucinations, disorganizedthoughts, dissociation from reality. ?? Anxiety:??endorses increased anxiety, racing thoughts, ?? PTSD:??endorses symptoms of PTSD, such as flashbacks, nightmares, increased vigilance and startle reflex, intrusive thoughts, avoidance of reminders ?? Medical ROS: All systems reviewed and negative except as noted in HPI. ?? Past Psychiatric History: ?? Past Hospitalizations: [] none ?? Past Suicidality/ Self-Injurious Behavior (SIB): [] one time took too many tylenol pills - was cleared by psychiatry in 2020, low suspicion it wasa lethal gesture. ?? Past Treatment Trials: hydroxyzine mirtazapine ?? Treatment Providers:?? None ?? Substance Use: Tobacco - smokes 1 pack per day, EtOH - quit cold turkey several years ago cannabis - quit cold several years ago Illicit drugs - denies Treatment History - denies ?? 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 (10/08/23 00:00:00) Temperature Route: Oral (10/08/23 00:00:00) Pulse Rate: 78 bpm (10/07/23 21:58:00) Heart Rate Monitored: 82 bpm (10/08/23 01:00:00) Respiratory Rate: 18 br/min (10/08/23 00:26:00) Systolic Blood Pressure:??148 mm Hg??High (10/08/23 01:00:00) Diastolic Blood Pressure:??87 mm Hg??High (10/08/23 01:00:00) Blood pressure sites: Arm, left (10/08/23 00:00:00) Mean Arterial Pressure: 113 mm Hg (10/07/23 21:58:00) Pulse Pressure: 61 mm Hg (10/08/23 01:00:00) Oxygen Saturation: 95 % (10/08/23 00:00:00) Mode of Delivery (Oxygen): Room air (10/08/23 00:00:00) Early Warning Score: 2 (10/08/23 02:02:17) ? Pain Scores 1 - 10 Pain Scale Score: 8 (00:00) Pain relief acceptable: Yes (00:00) ? Intake/Output? 10/06 19:23 10/07 07:00 10/06 07:00 10/05 07:00 03 07:00 ?? 10/07 03:05 10/07 03:05 10/07 06:59 08 06:59 10/05 06:59 Intake ?208.2 ?0 ?208.2 ?0 ?0 Output ?500 ?0 ?500 ?0 ?0 Net Total ? -291.8 ?0 ? -291.8 ?0 ?0 ? Precautions No Precautions documented.? Physical Exam Gen- not in acute distress,comfortabily lying on bed, speaking in full sentences. HEENT- Normocephalic, Atraumatic, No pallor, icterus, KARL,??tenderness on palpation of the head??on left side Neck-supple, no JVD Heart-S1S2(+),??regular, no murmurs. lungs- Clear, b/l air entry, no wheezing. Abdomen-soft, nontender,nondistended,??bowel sounds present, No guarding. Extremities-pulses palpable. No pedal edema. No calf tenderness. Neurological- AAO??3. ??Motor 5/5 and sensation intact??bilateral??upper extremities.?? Motor 5/5 on the right lower extremity but??3-4/5??left??lower extremity.?? Absent sensation??of the left leg. Psychiatric-patient???s mood is stable. ? (10/07/2023 16:[address] Head-Hyper Acute Stroke) MPRESSION: ?? There is no acute intracranial abnormality.? (10/07/2023 16:[address] Angio Neck Hyperacute Stroke) MPRESSION: ? No proximal occlusion, high grade stenosis, or other significant abnormality of the major arteries of the head and neck. ? (10/07/2023 16:[address] Angio Chest) MPRESSION:? No aortic aneurysm or dissection.? No evidence of an acute abnormality within the chest or abdomen. Assessment/Plan 33-year-old male with history of hypertension diagnosed many years ago but not taking any medications came to the ED with complaints of left-sided chest pain radiating to the left arm, left side of the head and left leg. Initially in the ED patient remains afebrile, HR 77, RR 13, BP initially was more than 200s saturation 97% on room air.?? WBC 9.6, Hgb 17, PLT 330, electrolytes normal, BUN/creatinine 10/0.8, blood glucose 117, magnesium 2.2, AST/ALT 27/43, lactate 1.7, troponin 12?12, UA negative CT head without any acute intracranial abnormalities, CT angio of the head and neck no proximal occlusions or high- grade stenosis or other significant abnormalities of the major arteries of the head and neck.?? CT angio of the chest and abdomen no aortic aneurysm or dissection, no evidence of any acute abnormalities within the chest or abdomen.?? Patient received pantoprazole, MiraLAX, morphine and was placed on nicardipine drip for hypertensive emergency.?? Patient will be admitted to [facility] medicine service for further management ?? 1. ??Hypertensive emergency ??(I16.1) Patient has a history of hypertension and not on any medications.?? Also does a cigarette smoking??every day. Vitals as per unit standards Telemetry monitoring On nicardipine drip, titrate blood pressure down slowly Once stable??will need to start with p.o. antihypertensive medications Low-salt diet ?? 2. ??Left-sided weakness ??(R53.1) 3. ??Paresthesia of left leg ??(R20.2) Neurology was consulted in the ED given inconsistent exam and imaging negative for any acute stroke.?? Diagnosis likely could be functional weakness, nonorganic etiology and signed off? Insomnia and sleep issues?? - Patient states that he is a very anxious person, does complains of??issues with sleeping, nightmares/terrors with??disorientation??which last for about 5 to 10 minutes.?? Episode of sleepwalking and??few episodes of not able to??hold him??stand??with concern for narcolepy vs systems?? could be due to PTSD from??his rough past hard life which he did not allobarate. will consider psychiatric evaluation to evaluate for anxiety leading to her chronic symptoms??concern for??any panic attack/disorder vs PTSD. ?? 4. ??Continuous dependence on cigarette smoking ??(F17.210)??refuses to have nicotine??patches/gums.?? States he does not feel cravings 5. ??History of alcohol use ??(Z87.018)??currently does not drink regularly. ?? VTE Prophylaxis:??Pneumatic compression boots and will encourage early ambulation ?VTE Prophylaxis Assessment:??VTE Prophylaxis Ordered ?? Code Status:??Full, confirmed with patient at bedside ?Order Code Status:??Code Status Ordered Diet???cardiac diet ?? Patient seen and examined on??10/07/2023 ? Histories Allergies Allergies ?(Active and Proposed Allergies Only) NKA? (Severity: Unknown severity, Onset: Unknown) No Known Medication Allergies? (Severity: Unknown severity, Onset: Unknown) ? Past Medical History/Problem List Active Problems??(1) Obese class I ? Past Surgical History No surgery history documented. ? Social History Alcohol Details:??Use: Current. ??Frequency: 1-2 times per week. Substance Abuse Details:??Use: Current. ??Type: Marijuana. ??Frequency: 1-2 times per month. Tobacco Details:??Use: 10 or more cigarettes (1/2 pack or more)/day in last 30 days. ? Family History No family history recorded. ? Medications Home Medications Ibuprofen (ibuprofen 600 mg oral tablet)?600?Milligram?1?tablet?By Mouth?Every 6 to 8 hours?as needed?with food?as needed for pain ? Inpatient Medications Medications (12) Active SCHEDULED: (1) NaCl 0.9% Flush 3ml (NaCL 0.9% Flush) ??3 mL, IV Push, Every 8 hours CONTINUOUS: (1) NICARdipine 2.5 mg/mL Cont IV 25 mg + NaCL 0.9% (250 mL) Cont IV 250 mL (NiCARDipine Cont IV 25 mg + NaCL 0.9% for Titration 250 mL) ??250 mL, IV Infusion PRN: (10) Acetaminophen 325 mg Tablet (Acetaminophen Tablet) ??650 mg, By Mouth, Every 4 hours Dextromethorphan-Guaifenesin 20 mg-200 mg/10 mL Liqu UD (Robitussin DM Liquid) ??10 mL, By Mouth, Every 4 hours Docusate Sodium 100 mg Capsule (Docusate Sodium Capsule) ??100 mg 1 capsule, By Mouth, 2 times a day HYDROmorphone 0.5 mg/0.5 mL Inj Syringe (Dilaudid Inj) ??0.5 mg 0.5 mL, IV Push Slowly, Every 4 hours Melatonin 3 mg Tablet (Melatonin Tablet) ??3 mg, By Mouth, Daily at bedtime NaCl 0.9% Flush 3ml (NaCL 0.9% Flush) ??3 mL, IV Push, Every 8 hours OxyCODONE 5 mg IR Tablet (oxyCODONE 5 mg oral tablet) ??5 mg, By Mouth, Every 6 hours Polyethylene Glycol 17 Gm Powder (MiraLax Powder) ??17 Gm 1 pack/packet, By Mouth, Daily Senna Tablet ??8.6 mg 1 tablet, By Mouth, 2 times a day Simethicone 80 mg Chewable Tablet (Simethicone Tablet) ??80 mg, Chew, 3 times a day ? Results Recent Labs BLOOD BANK Blood Type B Positive ()?? 10/07/2023 15:39 Antibody Screen Negative ()?? 10/07/2023 15:39 ?? BLOOD COUNT & DIFF WBC 9.6 k/mm3 ()?? 10/07/2023 16:26 RBC 5.57 m/mm3 ()?? 10/07/2023 16:26 Hgb 17.0 Gm/dL ()?? 10/07/2023 16:26 Hct 49.5 % ()?? 10/07/2023 16:26 MCV 88.9 femtoliters ()?? 10/07/2023 16:26 MCH 30.5 pg ()?? 10/07/2023 16:26 MCHC 34.3 g/dL ()?? 10/07/2023 16:26 Platelet Count 330 k/mm3 ()?? 10/07/2023 16:26 RDW-SD 39.6 femtoliters ()?? 10/07/2023 16:26 MPV 10.5 femtoliters ()?? 10/07/2023 16:26 Nucleated RBC (Automated) 0.0 #/100 WBC'S ()?? 10/07/2023 16:26 Abs. NRBC 0.0 k/mm3 ()?? 10/07/2023 16:26 Abs. Neut 5.3 k/mm3 ()?? 10/07/2023 16:26 Abs. Lymph 3.5 k/mm3 (High)?? 10/07/2023 16:26 Abs. [place] 0.6 k/mm3 ()?? 10/07/2023 16:26 Abs. Eo 0.1 k/mm3 ()?? 10/07/2023 16:26 Abs. Baso 0.1 k/mm3 ()?? 10/07/2023 16:26 Neut % 55.7 % ()?? 10/07/2023 16:26 Lymph % 36.5 % ()?? 10/07/2023 16:26 [place] % 5.7 % ()?? 10/07/2023 16:26 Eos % 1.4 % ()?? 10/07/2023 16:26 Baso % 0.5 % ()?? 10/07/2023 16:26 Imm Gran 0.2 % ()?? 10/07/2023 16:26 Abs. Imm Gran 0.0 k/mm3 ()?? 10/07/2023 16:26 ?? CARDIAC High Sensitivity Troponin (HSTnT) 12 ng/L ()?? 10/07/2023 23:55 ?? CHEM GENERAL Sodium 138 mmol/L ()?? 10/07/2023 19:31 Potassium 4.0 mmol/L ()?? 10/07/2023 19:31 Chloride 102 mmol/L ()?? 10/07/2023 19:31 Bicarbonate Level 22 mmol/L ()?? 10/07/2023 19:31 Anion Gap 14 ()?? 10/07/2023 19:31 Glucose Level 117 mg/dL (High)?? 10/07/2023 19:31 Glucose, POC 82 mg/dL ()?? 10/07/2023 15:38 BUN 10 mg/dL ()?? 10/07/2023 19:31 Creatinine-Blood 0.8 mg/dL ()?? 10/07/2023 19:31 Estimated GFR Creatinine 119 ML/MIN/1.73 M2 ()?? 10/07/2023 19:31 Calcium 9.6 mg/dL ()?? 10/07/2023 19:31 Magnesium 2.2 mg/dL ()?? 10/07/2023 16:26 Protein, Total 7.2 Gm/dL ()?? 10/07/2023 19:31 Albumin 4.6 Gm/dL ()?? 10/07/2023 19:31 AG Ratio 1.8 ()?? 10/07/2023 19:31 Alkaline Phosphatase 97 units/L ()?? 10/07/2023 19:31 Lipase 22 units/L ()?? 10/07/2023 16:26 AST (SGOT) 27 units/L ()?? 10/07/2023 19:31 ALT (SGPT) 43 units/L (High)?? 10/07/2023 19:31 Bilirubin, Total 0.3 mg/dL ()?? 10/07/2023 19:31 Lactate 1.7 mmol/L ()?? 10/07/2023 19:31 ?? COAG INR 1.0 ()?? 10/07/2023 16:26 Protime (PT) 10.3 seconds ()?? 10/07/2023 16:26 APTT 26.1 seconds ()?? 10/07/2023 16:26 ?? ENDOCRINE/TUMOR MARKER TSH 1.63 uIU/mL ()?? 10/07/2023 16:26 ?? UA/URINALYSIS Appear/Color, Urine COLORLESS ()?? 10/07/2023 18:03 Specific Burt, Urine 1.034 (High)?? 10/07/2023 18:03 pH, Urine 7.0 ()?? 10/07/2023 18:03 Albumin, Urine NEGATIVE ()?? 10/07/2023 18:03 Glucose, Urine NEGATIVE ()?? 10/07/2023 18:03 Ketones, Urine NEGATIVE ()?? 10/07/2023 18:03 Bilirubin, Urine NEGATIVE ()?? 10/07/2023 18:03 Hemoglobin, Urine NEGATIVE ()?? 10/07/2023 18:03 Nitrite, Urine NEGATIVE ()?? 10/07/2023 18:03 Leukocyte, Urine NEGATIVE ()?? 10/07/2023 18:03 Urobilinogen NORMAL mg/dL ()?? 10/07/2023 18:03 WBC's, Urine <1 /HPF ()?? 10/07/2023 18:03 RBC's, Urine <1 /HPF ()?? 10/07/2023 18:03 Mucus SLIGHT /LPF ()?? 10/07/2023 18:03 Hold Urine Culture Testing available 48 hours from time of collection. ()?? 10/07/2023 18:03 ?? URINE OTHER Est Creatinine Clearance 136.70 mL/min ()?? 10/07/2023 20:19 ? Urinalysis Albumin, Urine: NEGATIVE (18:03) Appear/Color, Urine: COLORLESS (18:03) Bilirubin, Urine: NEGATIVE (18:03) Est Creatinine Clearance: 136.7 mL/min (20:19) Est Creatinine Clearance: 109.36 mL/min (17:35) Glucose, Urine: NEGATIVE (18:03) Hemoglobin, Urine: NEGATIVE (18:03) Hold Urine Culture: Testing available 48 hours from time of collection. (18:03) Ketones, Urine: NEGATIVE (18:03) Leukocyte, Urine: NEGATIVE (18:03) Mucus: SLIGHT (18:03) Nitrite, Urine: NEGATIVE (18:03) pH, Urine: 7 (18:03) RBC's, Urine: <1 (18:03) Specific Burt, Urine:??1.034??High (18:03) Urobilinogen: NORMAL (18:03) WBC's, Urine: <1 (18:03) ? Cardiology Labs High Sensitivity Troponin (HSTnT): 12 ng/L (10/07/23 23:55:00) High Sensitivity Troponin (HSTnT): 12 ng/L (10/07/23 20:16:00) High Sensitivity Troponin (HSTnT): 12 ng/L (10/07/23 16:26:00) ?? [1]??CT Angio Chest; Magdi Christian MD 10/07/2023 16:14 EST EKG study * Event Display: ECG 12-Lead Authored Date: Please click on pdf link to open report * Event Display: ECG 12-Lead Authored Date: Ventricular Rate: 60 BPM Atrial Rate: 60 BPM P-R Interval: 152 ms QRS Duration: 86 ms Q-T Interval: 456 ms QTC Calculation(Bazett): 456 ms P Edcouch: 37 degrees R Edcouch: -7 degrees T Edcouch: 39 degrees Normal sinus rhythm Moderate voltage criteria for LVH, may be normal variant ( R in aVL , Sokolow- Joyce ) Cannot rule out Inferior infarct , age undetermined Abnormal ECG When compared with ECG of 07-OCT-2023 16:10, MANUAL COMPARISON REQUIRED, DATA IS UNCONFIRMED Confirmed by SUREKHA WHITING MD ([id number]) on 10/08/2023 3:00:01 PM [place]: SUREKHA WHITING MD Cardiology * Event Display: Cardiac Rhythm Strips Authored Date: Hospital Progress note * Ramon Winn RN: PERFORM, SIGN, VERIFY Event Display: Progress Note Hospital Authored Date: Patient: RICHIE SIERRA Age: 33 years Sex: Male : 1990 Associated Diagnoses: None Author: Ramon Winn RN Findings Problem Related to Alteration in Cardiac Function (new) : Alteration in Cardiac Function/new 10/09/2023 12:00 EDT Alteration in Cardiac Status Related to Hypertension Goals & Outcomes, Cardiac Status Pt will resume/maintain adequate cardiac output Cardiac Interventions Implemented Resolved problem; interventions no longer in effect BH Goals/Interventions, Cardiac Yes Cardiac, Problem Start 10/08/2023 5:10 Reviewed Plan with, Cardiac Status Patient, Spouse/significant other Patient Progression, Cardiac Status Patient progressing according to plan . Nursing Data Vital Signs : VITAL SIGNS SECTION 10/09/2023 8:51 EDT Early Warning Score 2.00 10/09/2023 8:51 EDT Temperature 97.6 DegF Temperature Route Oral Pulse Rate 66 bpm Respiratory Rate 18 br/min Systolic Blood Pressure 174 mm Hg H Diastolic Blood Pressure 118 mm Hg H Blood pressure sites Arm, right Mean Arterial Pressure 137 mm Hg Pulse Pressure 56 mm Hg Oxygen Saturation 100 % Mode of Delivery (Oxygen) Room air 10/09/2023 3:00 EDT Temperature 98.2 DegF Temperature Route Oral Pulse Rate 66 bpm Respiratory Rate 20 br/min Respiratory Rate 18 br/min Systolic Blood Pressure 158 mm Hg H Diastolic Blood Pressure 92 mm Hg H Blood pressure sites Arm, left Pulse Pressure 66 mm Hg Oxygen Saturation 100 % Mode of Delivery (Oxygen) Room air . Evaluation Pt was DC with [facility] from [facility] at 12;11. His was here to pick him up. IVs removed on Rarm. . Discharge Information Case Management Discharge Plan : Case Management Discharge Plan Data 10/09/2023 12:15 EDT Discharge Level of Care at Discharge Home/[facility] Rehabilitation Discharge : Rehab Discharge Index 10/09/2023 8:00 EDT Comments on treatment indicated 33 yo M presents to ED with c/o left-sided chestpain radiating to the left arm, left side of the head and left leg likely hypertensive emergency. Skilled PT gait balance endurance. Rec home c services and RW Full chart review completed Yes Hospital course CT angio of the chest and abdomen no aortic aneurysm or dissection, no evidence of any acute abnormalities within the chest or abdomen. Patient received pantoprazole, MiraLAX, morphine and was placed on nicardipine drip for hypertensive emergency. Other findings mod complexity eval 2/2 pmh and acute medical findings Plan of care PT Gait training, Transfer training, Therapeutic exercise, Functional Activities, Balance training * Ramon Winn RN: PERFORM, SIGN, VERIFY Event Display: Progress Note Hospital Authored Date: [id number] Patient: RICHIE SIERRA Age: 33 years Sex: Male : 1990 Associated Diagnoses: None Author: Ramon Winn RN Findings Problem Related to Alteration in Cardiac Function (new) : Alteration in Cardiac Function/new 10/08/2023 16:00 EST Alteration in Cardiac Status Related to Hypertension Goals & Outcomes, Cardiac Status Pt will resume/maintain adequate cardiac output Cardiac Interventions Implemented Assess/monitor cardiac status, Assess/monitor neuro status, Call/Report variances in ECG to provider Goals/Interventions, Cardiac Yes Cardiac, Problem Start 10/08/2023 5:10 Reviewed Plan with, Cardiac Status Patient Patient Progression, Cardiac Status Patient progressing according to plan . Nursing Data Vital Signs : VITAL SIGNS SECTION 10/08/2023 16:00 EST Temperature 97.8 DegF Temperature Route Oral Heart Rate Monitored 66 bpm Respiratory Rate 16 br/min Systolic Blood Pressure 150 mm Hg H Diastolic Blood Pressure 81 mm Hg Oxygen Saturation 99 % Mode of Delivery (Oxygen) Room air 10/08/2023 15:00 EST Temperature 98.1 DegF Temperature Route Oral Heart Rate Monitored 71 bpm Respiratory Rate 19 br/min Systolic Blood Pressure 109 mm Hg Diastolic Blood Pressure 83 mm Hg Pulse Pressure 26 mm Hg Oxygen Saturation 100 % Mode of Delivery (Oxygen) Room air . Evaluation Assumed care of patient at 1600. Report receive from María RED. Pt's and son at bedside. Stated that he had 9/10 chest pain and gave prn oxycodone 5mg with minimal effect. Pt AOx4, makes his needs known, moves all extremities. Stated that his waking is not steady. Pt will continue to be a high fall risk (due to dizziness, unsteady gait, pain, weakness and blurry vision) and verbalized he will press call button if he needs to wak to the bathroom with staff assistance. Bed alarm on at all times. See full asessment on [facility]. . * Divya Garcia RN: PERFORM, SIGN, VERIFY Event Display: Progress Note Hospital Authored Date: [id number] Patient: RICHIE SIERRA Age: 33 years Sex: Male : 1990 Associated Diagnoses: None Author: Divya Garcia RN Findings Problem Related to Alteration in Cardiac Function (new) : Alteration in Cardiac Function/new 10/08/2023 15:00 EST Alteration in Cardiac Status Related to Hypertension Goals & Outcomes, Cardiac Status Pt will resume/maintain adequate cardiac output Cardiac Interventions Implemented Assess/monitor cardiac status, Assess/monitor neuro status, Assess/monitor respiratory status BH Goals/Interventions, Cardiac Yes Cardiac, Problem Start 10/08/2023 5:10 Reviewed Plan with, Cardiac Status Patient Patient Progression, Cardiac Status Patient progressing according to plan . Nursing Data Vital Signs : VITAL SIGNS SECTION 10/08/2023 12:16 EST Early Warning Score 2.00 10/08/2023 12:16 EST Early Warning Score 2.00 10/08/2023 12:08 EST Early Warning Score 2.00 10/08/2023 12:00 EST Heart Rate Monitored 61 bpm Respiratory Rate 15 br/min L Systolic Blood Pressure 138 mm Hg Diastolic Blood Pressure 102 mm Hg H Pulse Pressure 36 mm Hg Oxygen Saturation 99 % Mode of Delivery (Oxygen) Room air 10/08/2023 11:41 EST Early Warning Score 2.00 10/08/2023 11:32 EST Early Warning Score 0.00 10/08/2023 11:17 EST Respiratory Rate 19 br/min 10/08/2023 11:00 EST Temperature 97.6 DegF Temperature Route Oral Pulse Rate 62 bpm Heart Rate Monitored 65 bpm Respiratory Rate 14 br/min L Systolic Blood Pressure 141 mm Hg H Diastolic Blood Pressure 98 mm Hg H Pulse Pressure 43 mm Hg Oxygen Saturation 100 % Mode of Delivery (Oxygen) Room air . Evaluation Patient alert and oriented x4, calm and cooperative with care. Off nicardipine drip since 5am, blood pressures 100s-140s systolically, initiated oral nifedipine per SEP. Patient reports 9/10 chest pain, notified MD Sheridan, obtained EKG. Applied lidocaine patch, warm pack and administered PRN IV Dilaudid with minimal effect. Patient reports blurry/ doubled vision, tingling and loss of sensation to left lower extremity, MD notified. Psych eval completed. Pending pt eval. Patient downgraded to acute care, pending transfer. Bed in low-locked position for safety.. Note * Ramon Winn RN: PERFORM Event Display: Discharge/Transfer Note Hospital Authored Date: Nursing Discharge Note Entered On: 10/09/2023 12:16 EDT Performed On: 10/09/2023 12:15 EDT by Ramon Winn RN Nursing Discharge Note 2 Discharge Time : 10/09/2023 12:11 EDT Discharge Level of Care at Discharge : Home/[facility] Patient Left Unit Via : Wheelchair Patient Accompanied Off Unit with : Significant other DC Instructions Provided & Signed by Pt : Yes Patient Understands D/C Instructions : Yes Patient Instructions Discharge Signed : Yes Did Pt have Specialty Bed or Wound Vac : No Ramon Winn RN - 10/09/2023 12:15 EDT * Cody Buitrago DO: PERFORM Event Display: Discharge/Transfer Note Hospital Authored Date: Patient: ??RICHIE SIERRA ? Age:??33 Years?Sex:??Male?:??1990?? Patient Information Discharge Location: [facility] Primary Care Physician: Not on Staff, PCP Admit Date/Time: 10/07/23 19:23 Discharge date: 09 October 2023 Discharge Disposition Discharge Disposition: Home: No Services Discharge Diagnosis Hypertensive emergency (I16.1) Left-sided weakness (R53.1) Paresthesia of left leg (R20.2) Continuous dependence on cigarette smoking (F17.210) _ Discharge Medications Escitalopram (Lexapro 10 mg oral tablet)?10?Milligram?By Mouth?Daily?for 30?Days Hydrochlorothiazide (hydrochlorothiazide 25 mg oral tablet)?25?Milligram?By Mouth?Daily?for 30?Days HydrOXYzine (hydrOXYzine hydrochloride 10 mg oral tablet)?50?Milligram?By Mouth?3 timesa day?as needed?Anxiety?for 30?Days NIFEdipine (NIFEdipine 60 mg oral tablet, extended release)?60?Milligram?By Mouth?Daily?for 30?Days Potassium Chloride (Potassium Chloride (Eqv-K-Tab) 20 mEq oral tablet, extended release)?1?tab(s)?20?Milliequivalent?By Mouth?Daily?for 30?Days ? Quality Measures Tobacco Use Treatment:? Medications Started All the above medicines were started Allergies Allergies ?(Active and Proposed Allergies Only) NKA? (Severity: Unknown severity, Onset: Unknown) No Known Medication Allergies? (Severity: Unknown severity, Onset: Unknown) ? PCP Follow-Up/Heads-Up Follow-up with the [facility] for your primary care physician Hospital Course ??33-year-old male with no previous medical history other than anxiety. ??Here is a description of his admitting presentation. ?? Chief Complaint/Reason for Consultation ?? Chest pain and left-sided??weakness/numbness History of Present Illness 33-year-old male with history of hypertension diagnosed many years ago but not taking any medications came to the ED with complaints of left-sided chest pain radiating to the left arm, left side of the head and left leg. ?? Patient's medical chart reviewed, seen and examined at bedside.?? Patient complains of having constant chest pain mostly on the left side of the chest for about 3 to 4 days which has been progressively getting worse.?? He states that the pain radiates to the left arm and to the left side of the face along with the left leg.?? Symptoms has been progressively worsening but yesterday patient noticedhaving numbness on the left side of the arms and legs mostly on the leg which he got concerned and came to the ED for evaluation.?? Endorses pain is constant even when resting or with ambulation but does endorses worsening when taking deep breath.?? Also complains of pounding headache.?? Denies having any recent fevers, chills, cough, sore throat, runny nose, nausea, vomiting, abdominal pain, constipation, diarrhea, dysuria, hematuria, hematochezia/melena.?? Patient states that he was diagnosedwith hypertension about 7 years ago and he used to take medications for 1 year but stopped after that.?? He does not check his blood pressure often but does feel the symptoms whenever his blood pressure is high and he resumes that his blood pressure is elevated.?? Last checked 2 weeks his blood pressure was around 200s.?? Does endorses having family history of hypertension, MIs and strokes.?? Patient denies lifting any heavy objects.?? 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 Endorses cigarette smoking used to smoke more than 2 packs/day but slightly cut down recently.?? Usedto drink alcohol every day 1.?? But since August only drank like 2 or 3 times.?? Also endorses remote use of marijuana and snorting cocaine in the past.?? Denies any IV drug use.?? He explains lot of insomnia problems and issues he describes an episode where he?? does not know how he ended up coming to the restroom.?? Frequently gets nightmares/terrors.?? He woke up in the middle of the night feeling anxious and worried if someone comes near him to help he thinks as threat and tries to defend.?? He states this happens almost every day. sometimes he feels not able to hold his body to move. hesays sometimes he will not sleep for more than 3 to 4 days and then constantly sleeps for 30 hours. ?? Initially in the ED patient remains afebrile, HR 77, RR 13, BP initially was more than 200s saturation 97% on room air.?? WBC 9.6, Hgb 17, PLT 330, electrolytes normal, BUN/creatinine 10/0.8, blood glucose 117, magnesium 2.2, AST/ALT 27/43, lactate 1.7, troponin 12?12, UA negative CT head without any acute intracranial abnormalities, CT angio of the head and neck no proximal occlusions or high-grade stenosis or other significant abnormalities of the major arteries of the head and neck.?? CT angio of the chest and abdomen no aortic aneurysm or dissection, no evidence of any acute abnormalities within the chest or abdomen.?? Patient received pantoprazole, MiraLAX, morphine and was placedon nicardipine drip for hypertensive emergency.?? Patient will be admitted to [facility] medicine service for further management Review of Systems All systems reviewed and are negative except as mentioned in HPI [1] ?? Following for the ER course: The patient was evaluated neurology, there is no evidence of any stroke.?Imaging of the brain is listed below: (10/07/2023 16:[address] Angio Head Hyperacute Stroke) IMPRESSION:? No proximal occlusion, high grade stenosis, or other significant abnormality of the major arteries of the head and neck. [2] 10/07/2023 16:[address] Head-Hyper Acute Stroke) IMPRESSION: There is no acute intracranial abnormality. ?? Patient was complaining of chest pain and was diagnosed with hypertensive urgency. ??He was startedon a Cardene infusion, now transitioned to nicardipine and hydrochlorothiazide, he has LVH??seen onEKG,??he likely has??undiagnosed hypertension, he smokes cigarettes, occasionally drinks??alcohol, and he takes ibuprofen. ??Advised him to stop doing all these things. ?? Evaluate his chest pain he had imaging of the chest and abdomen, results are listed below: ?? (10/07/2023 16:[address] Angio Abdomen) ?? IMPRESSION:? No aortic aneurysm or dissection.? No evidence of an acute abnormality within the chest or abdomen. [3] ?? Anxiety and PTSD was seen by psychiatry, they recommend starting Lexapro. ?? I saw and examined the patient today, updated his /girlfriend.?? He still has the chest pain, again be evaluated as noncardiac, he has no referred pain from the abdomen, he has no??right upper quadrant tenderness no pain over the epigastric area no pain over McBurney's point. ?? He is eating and drinking his lungs are clear heart rate regular he is appropriate for discharge after we give his blood pressure medicine, to manage his blood pressure I will use nifedipine which isalready started in the hospital,??and add potassium supplements to hydrochlorothiazide. ??Advised her to follow-up with his primary care physician. ?? All questions answered, provide his blood pressure improved to be discharged later today at approximately 1300 hrs. ?? 30 minutes were spent. ?? Thank you for allowing us to follow your patient. Objective Vital Signs?? Temperature: 97.6 DegF (10/09/23 08:51:00) Temperature Route: Oral (10/09/23 08:51:00) Pulse Rate: 66 bpm (10/09/23 08:51:00) Heart Rate Monitored: 66 bpm (10/08/23 16:00:00) Respiratory Rate: 18 br/min (10/09/23 08:51:00) Systolic Blood Pressure:??174 mm Hg??High (10/09/23 08:51:00) Diastolic Blood Pressure:??118 mm Hg??High (10/09/23 08:51:00) Blood pressure sites: Arm, right (10/09/23 08:51:00) Mean Arterial Pressure: 137 mm Hg (10/09/23 08:51:00) Pulse Pressure: 56 mm Hg (10/09/23 08:51:00) Oxygen Saturation: 100 % (10/09/23 08:51:00) Mode of Delivery (Oxygen): Room air (10/09/23 08:51:00) Early Warning Score: 2 (10/09/23 08:51:53) ? . Physical Exam See above for physical exam Pending Results High??Sensitivity??Troponin T ordered on 10/07/2023 Follow-Up Appointments Added Follow Up ?Time Frame ?Comments Not on Staff, PCP Patient Instructions ? You were evaluated by the [facility] Psychiatric Consultation Service. ?? We recommend that you obtain outpatient mental health follow-up. Please contact one of the following [facility] for an appointment: ?? [facility]: ?? [facility]: [phone] ?? [facility]: [phone] ?? If you are experiencing a mental health crisis, you can call the [facility] Crisis Hotline at [phone]. ?? You can also call 911 or come to the nearest emergency room if you are experiencing suicidal thoughts, hallucinations, or paranoia. ? We recommend that you obtain mental health follow-up to help manage stress and anxiety. Please contact one of the following [facility] for an appointment: ?? [facility]: ?? [facility]: ?? [facility]: ?? [facility] ?? If you are experiencing a mental health crisis, you can call the [facility] Crisis Hotline at [phone]. ? Post Discharge Care Diet: ??Cardiac diet ?? Activity: ??Ambulate with assistance 3 times a day unless otherwise specified ?? Code Status: ??Full Resuscitation ?? Discharge ?This Afternoon, 10/09/23 9:04:00 EDT Discharge Prescriptions ?ePrescribed, 10/09/23 9:04:00 EDT Home Health Face to Face ^HomeHealthFTF Results Discharge Labs BLOOD BANK Blood Type B Positive ()?? 10/07/2023 15:39 Antibody Screen Negative ()?? 10/07/2023 15:39 ?? BLOOD COUNT & DIFF WBC 8.3 k/mm3 ()?? 10/08/2023 04:49 RBC 5.17 m/mm3 ()?? 10/08/2023 04:49 Hgb 15.9 Gm/dL ()?? 10/08/2023 04:49 Hct 45.7 % ()?? 10/08/2023 04:49 MCV 88.4 femtoliters ()?? 10/08/2023 04:49 MCH 30.8 pg ()?? 10/08/2023 04:49 MCHC 34.8 g/dL ()?? 10/08/2023 04:49 Platelet Count 302 k/mm3 ()?? 10/08/2023 04:49 RDW-SD 39.7 femtoliters ()?? 10/08/2023 04:49 MPV 10.4 femtoliters ()?? 10/08/2023 04:49 Nucleated RBC (Automated) 0.0 #/100 WBC'S ()?? 10/08/2023 04:49 Abs. NRBC 0.0 k/mm3 ()?? 10/08/2023 04:49 Abs. Neut 4.4 k/mm3 ()?? 10/08/2023 04:49 Abs. Lymph 3.1 k/mm3 ()?? 10/08/2023 04:49 Abs. Oceana 0.6 k/mm3 ()?? 10/08/2023 04:49 Abs. Eo 0.2 k/mm3 ()?? 10/08/2023 04:49 Abs. Baso 0.1 k/mm3 ()?? 10/08/2023 04:49 Neut % 53.1 % ()?? 10/08/2023 04:49 Lymph % 37.0 % ()?? 10/08/2023 04:49 Oceana % 7.2 % ()?? 10/08/2023 04:49 Eos % 1.9 % ()?? 10/08/2023 04:49 Baso % 0.6 % ()?? 10/08/2023 04:49 Imm Gran 0.2 % ()?? 10/08/2023 04:49 Abs. Imm Gran 0.0 k/mm3 ()?? 10/08/2023 04:49 ?? CARDIAC High Sensitivity Troponin (HSTnT) 12 ng/L ()?? 10/07/2023 23:55 ? CHEM GENERAL Sodium 140 mmol/L ()?? 10/08/2023 04:50 Potassium 4.0 mmol/L ()?? 10/08/2023 04:50 Chloride 105 mmol/L ()?? 10/08/2023 04:50 Bicarbonate Level 21 mmol/L (Low)?? 10/08/2023 04:50 Anion Gap 14 ()?? 10/08/2023 04:50 Glucose Level 114 mg/dL (High)?? 10/08/2023 04:50 Glucose, POC 82 mg/dL ()?? 10/07/2023 15:38 BUN 9 mg/dL ()?? 10/08/2023 04:50 Creatinine-Blood 0.9 mg/dL ()?? 10/08/2023 04:50 Estimated GFR Creatinine 108 ML/MIN/1.73 M2 ()?? 10/08/2023 04:50 Calcium 9.4 mg/dL ()?? 10/08/2023 04:50 Phosphorus 3.8 mg/dL ()?? 10/08/2023 04:50 Magnesium 2.4 mg/dL (High)?? 10/08/2023 04:50 Protein, Total 7.2 Gm/dL ()?? 10/07/2023 19:31 Albumin 4.6 Gm/dL ()?? 10/07/2023 19:31 AG Ratio 1.8 ()?? 10/07/2023 19:31 Alkaline Phosphatase 97 units/L ()?? 10/07/2023 19:31 Lipase 22 units/L ()?? 10/07/2023 16:26 AST (SGOT) 27 units/L ()?? 10/07/2023 19:31 ALT (SGPT) 43 units/L (High)?? 10/07/2023 19:31 Bilirubin, Total 0.3 mg/dL ()?? 10/07/2023 19:31 Lactate 1.7 mmol/L ()?? 10/07/2023 19:31 ?? COAG INR 1.0 ()?? 10/07/2023 16:26 Protime (PT) 10.3 seconds ()?? 10/07/2023 16:26 APTT 26.1 seconds ()?? 10/07/2023 16:26 ? ENDOCRINE/TUMOR MARKER TSH 1.63 uIU/mL ()?? 10/07/2023 16:26 ? UA/URINALYSIS Appear/Color, Urine COLORLESS ()?? 10/07/2023 18:03 Specific Burt, Urine 1.034 (High)?? 10/07/2023 18:03 pH, Urine 7.0 ()?? 10/07/2023 18:03 Albumin, Urine NEGATIVE ()?? 10/07/2023 18:03 Glucose, Urine NEGATIVE ()?? 10/07/2023 18:03 Ketones, Urine NEGATIVE ()?? 10/07/2023 18:03 Bilirubin, Urine NEGATIVE ()?? 10/07/2023 18:03 Hemoglobin, Urine NEGATIVE ()?? 10/07/2023 18:03 Nitrite, Urine NEGATIVE ()?? 10/07/2023 18:03 Leukocyte, Urine NEGATIVE ()?? 10/07/2023 18:03 Urobilinogen NORMAL mg/dL ()?? 10/07/2023 18:03 WBC's, Urine <1 /HPF ()?? 10/07/2023 18:03 RBC's, Urine <1 /HPF ()?? 10/07/2023 18:03 Mucus SLIGHT /LPF ()?? 10/07/2023 18:03 Hold Urine Culture Testing available 48 hours from time of collection. ()?? 10/07/2023 18:03 ? URINE OTHER Est Creatinine Clearance 121.52 mL/min ()?? 10/08/2023 05:31 ? 30??minutes spent on discharge [1]??Initial Evaluation Note; Lisette PAUL, Zuri Gordon 10/08/2023 03:05 EST [2]??CT Angio Head Hyperacute Stroke; Melissa Sorensen MD 10/07/2023 16:09 EST [3]??CT Angio Abdomen; Magdi Christian MD 10/07/2023 16:14 RADHA Winn RN, Ramon: PERFORM Event Display: Patient Education/Instruction Authored Date: Inpatient Adult Discharge Instructions. [address] [address] Name: RICHIE TILLMAN : 1990?? Visit: 10/07/2023 19:23?? Current Date: 10/09/2023 11:06 ?? Account: [id number]?? Inpatient Adult Discharge Instructions We would like to thank you for allowing us to assist you with your healthcare needs. The following includes patient education materials and information regarding your injury/illness. Our entire staffstrives to provide an excellent experience for our patients and their families. PLEASE ENSURE YOU FOLLOW-UP PER THE INSTRUCTIONS BELOW! ?? YOUR OPINION IS IMPORTANT TO US! Please complete the survey you may receive by mail or email. Your feedback will be used to make improvements to the healthcare experiences of our patients and their families. Surveys are administered by [employer] ?? If further treatment with your primary care physician or another doctor is recommended, it is important for you to keep the appointment. Call your primary care physician or return to the Emergency Department immediately if your condition worsens, fails to improve, or new symptoms develop. If you need to find a doctor, you can call [facility] Link for a referral at [phone] or toll free at [phone] or log in to [email or web address].. ?? [facility], in keeping with [facility] guidance, no longer requires face masks for staff, patientsor visitors in most situations. Similiar to time spent indoors at other locations, there is the chance that you were exposed to repiratory viruses during your time with us (such as flu or COVID-19). If you develop symptoms concerning for a viral respiratory infection, please seek testing (and treatment if indicated) from your medical provider or home test kit. ?? You can view and manage your care through the patient portal or by using a health care [place] of your choosing. [email or web address] is a website that allows you to securely view your medical information including your hospital discharge summary, office visit summaries, medications and follow-up visits. You can also request appointments, renew medications, and request access to your medical information using a health care [place] of your choosing, or just ask a question. You can enroll at [email or web address] or register during your next office visit. You have been discharged from [facility], Patient Care Unit: W4??. If you have any questions regarding these instructions, including results of studies pending, afteryou leave, please call us and we will be happy to assist you 21/02. [facility] Your Care Team Attending Physician Iftikhar DO, Cody S?? Consulting Providers Iftikhar DO, Cody S?? Discharging Providers Iftikhar DO, Cody De Santiago Reason for Your Visit hypertensive emergency?? Your Diagnosis Left-sided weakness Paresthesia of left leg Continuous dependence on cigarette smoking Tests Performed Below is a partial list of the tests performed during your hospitalization. You may have had other tests and procedures not included in this list. Please discuss all test results with your provider. Alk Phos ALT AST Basic Metabolic Panel CBC w/ Differential Comprehensive Metabolic Panel GLUCOSE POC High Sensitivity Troponin T?-- Results Pending -- Lactate Level Lipase Magnesium Level Phosphorus Level PT (INR) PTT Total Bilirubin Troponin T, High Sensitivity TSH with T4 Reflex (Adults Only) Type and Screen Urinalysis w/hold for Urine Culture CT Angio Abdomen CT Angio Chest CT Angio Head Hyperacute Stroke CT Angio Neck Hyperacute Stroke CT Head-Hyper Acute Stroke You will be contacted within 72 hours with your results. High??Sensitivity??Troponin T (High Sensitivity Troponin T)?? Primary Care Provider Not on Staff, PCP?? Advance Directive Health Care Proxy on File No Patient refuses to discuss Discharge Vitals Temperature: 97.6 DegF Height: 180 cm Pulse Rate: 66 bpm Weight: 111.5 kg Respiratory Rate: 18 br/min Body Mass Index:??33.95 kg/m2??Critical Systolic Blood Pressure:??174 mm Hg??High Body surface area: 2.35 Diastolic Blood Pressure:??118 mm Hg??High ?? Oxygen Saturation: 100 % ?? Studies Pending All studies ordered during this hospital stay have been completed unless listed below. Please discuss all pending results with your provider listed above in these instructions. ?? High??Sensitivity??Troponin T (High Sensitivity Troponin T)?? What to do next Instructions From Your Doctor ? You were evaluated by the [facility] Psychiatric Consultation Service. ?? We recommend that you obtain outpatient mental health follow-up. Please contact one of the following [facility] for an appointment: ?? [facility]: ?? [facility]: [phone] ?? [facility]: [phone] ?? If you are experiencing a mental health crisis, you can call the [facility] Crisis Hotline at [phone]. ?? You can also call 911 or come to the nearest emergency room if you are experiencing suicidal thoughts, hallucinations, or paranoia. ? We recommend that you obtain mental health follow-up to help manage stress and anxiety. Please contact one of the following [facility] for an appointment: ?? [facility]: ?? [facility]: ?? [facility]: ?? [facility] ?? If you are experiencing a mental health crisis, you can call the [facility] Crisis Hotline at [phone]. ? Orders??:Cardiac diet :Ambulate with assistance ??3 times a day ??unless otherwise specified Status: ??Full Resuscitation?? Afternoon, ??10/09/23 9:04:00 EDT?? Prescriptions??, ??10/09/23 9:04:00 EDT?? You Need to Schedule the Following Appointments Follow Up with??Not on Staff, PCP Discharge Medications RICHIE SIERRA :1990 Visit Date:10/07/2023 Medications: Please continue your medications until treatment is completed or stopped by your provider. Medications not listed below should be discontinued. Discuss any questions related to medications with your provider. What How Much When Instructions Next Dose New Escitalopram (Lexapro 10 mg oral tablet) 10 Milligram Oral Daily Duration: 30 Days Pickup at [facility] 3 10/09 at 9am New Hydrochlorothiazide (hydrochlorothiazide 25 mg oral tablet) 25 Milligram Oral Daily Duration: 30 Days Pickup at [place] [address] 10/09 at 9am New HydrOXYzine (hydrOXYzine hydrochloride 10 mg oral tablet) 50 Milligram Oral 3 times a day as needed for Anxiety Duration: 30 Days Pickup at [place] [address] New NIFEdipine (NIFEdipine 60 mg oral tablet, extended release) 60 Milligram Oral Daily Duration: 30 Days Pickup at [place] [address] 10/09 at 9am New Potassium Chloride (Potassium Chloride (Eqv-K-Tab) 20 mEq oral tablet, extended release) 1 tab(s) Oral Daily Duration: 30 Days Pickup at [place] [address] 10/09 at 9am Pharmacy Information [place] [address]: [address] [place], [place] [id number] [phone] ?? What How Much When Comments Stop Taking Ibuprofen (ibuprofen 600 mg oral tablet) 1 tab(s) Oral Every 6 to 8 hours as needed for as needed for pain with food ?? Prescription Given During Visit Escitalopram (Lexapro 10 mg oral tablet) - 10 mg, By Mouth, Daily, # 30 capsule, 0 Refills, [place] [address], [address] [place] [phone]?? HydrOXYzine (hydrOXYzine hydrochloride 10 mg oral tablet) - 50 mg, By Mouth, 3 times a day, # 90 capsule, 0 Refills, [address] [address] [phone]?? Hydrochlorothiazide (hydrochlorothiazide 25 mg oral tablet) - 25 mg, By Mouth, Daily, # 30 capsule,0 Refills, [place] [address], [address] [place] [phone]?? NIFEdipine (NIFEdipine 60 mg oral tablet, extended release) - 60 mg, By Mouth, Daily, # 30 capsule,0 Refills, [address] [address] [phone]?? Potassium Chloride (Potassium Chloride (Eqv-K-Tab) 20 mEq oral tablet, extended release) - 1 tablet= 20 mEq, By Mouth, Daily, # 30 tablet, 0 Refills, [place] [address], [address] [place] [phone]?? Laboratory Results Below is a partial list of the most recent Laboratory test results done prior to this discharge. You may have had other tests and procedures not included in this list. Please discuss all test resultswith your provider. Est Creatinine Clearance - 121.52 mL/min (10/08/2023) Alk Phos (10/07/2023) ???Alkaline Phosphatase - 96 units/L ALT (10/07/2023) ???ALT (SGPT) - 45 units/L AST (10/07/2023) ???AST (SGOT) - 26 units/L Basic Metabolic Panel (10/08/2023) ???Sodium - 140 mmol/L???Potassium - 4.0 mmol/L???Chloride - 105 mmol/L???Bicarbonate Level - 21 mmol/L???Anion Gap - 14???Glucose Level - 114 mg/dL???BUN - 9 mg/dL???Creatinine-Blood - 0.9 mg/dL???Estimated GFR Creatinine - 108 ML/MIN/1.73 M2???Calcium - 9.4 mg/dL CBC w/ Differential (10/08/2023) ???WBC - 8.3 k/mm3???RBC - 5.17 m/mm3???Hgb - 15.9 Gm/dL???Hct - 45.7 %???MCV - 88.4 femtoliters???MCH - 30.8 pg???MCHC - 34.8 g/dL???Platelet Count - 302 k/mm3???RDW-SD - 39.7 femtoliters???MPV - 10.4 femtoliters???Nucleated RBC (Automated) - 0.0 #/100 WBC'S???Abs. NRBC - 0.0 k/mm3???Abs. Neut - 4.4 k/mm3???Abs. Lymph - 3.1 k/mm3???Abs. Oceana - 0.6 k/mm3???Abs. Eo - 0.2 k/mm3???Abs. Baso - 0.1 k/mm3???Neut % - 53.1 %???Lymph % - 37.0 %???Oceana % - 7.2 %???Eos % - 1.9 %???Baso % - 0.6 %???Imm Gran - 0.2 %???Abs. Imm Gran - 0.0 k/mm3 Comprehensive Metabolic Panel (10/07/2023) ???Sodium - 138 mmol/L???Potassium - 4.0 mmol/L???Chloride - 102 mmol/L???Bicarbonate Level - 22 mmol/L???Anion Gap - 14???Glucose Level - 117 mg/dL???BUN - 10 mg/dL???Creatinine-Blood - 0.8 mg/dL???Estimated GFR Creatinine - 119 ML/MIN/1.73 M2???Calcium - 9.6 mg/dL???Protein, Total - 7.2 Gm/dL???Al bumin - 4.6 Gm/dL???AG Ratio - 1.8???Alkaline Phosphatase - 97 units/L???AST (SGOT) - 27 units/L???ALT (SGPT) - 43 units/L???Bilirubin, Total - 0.3 mg/dL GLUCOSE POC (10/07/2023) ???Glucose, POC - 82 mg/dL Lactate Level (10/07/2023) ???Lactate - 1.7 mmol/L Lipase (10/07/2023) ???Lipase - 22 units/L Magnesium Level (10/08/2023) ???Magnesium - 2.4 mg/dL Phosphorus Level (10/08/2023) ???Phosphorus - 3.8 mg/dL PT (INR) (10/07/2023) ???INR - 1.0???Protime (PT) - 10.3 seconds PTT (10/07/2023) ???APTT - 26.1 seconds Total Bilirubin (10/07/2023) ???Bilirubin, Total - 0.4 mg/dL Troponin T, High Sensitivity (10/07/2023) ???High Sensitivity Troponin (HSTnT) - 12 ng/L TSH with T4 Reflex (Adults Only) (10/07/2023) ???TSH - 1.63 uIU/mL Type and Screen (10/07/2023) ???Blood Type - B Positive???Antibody Screen - Negative Urinalysis w/hold for Urine Culture (10/07/2023) ???Appear/Color, Urine - COLORLESS???Specific Burt, Urine - 1.034???pH, Urine - 7.0???Albumin, Urine - NEGATIVE???Glucose, Urine - NEGATIVE???Ketones, Urine - NEGATIVE???Bilirubin, Urine - NEGATIVE???Hemoglobin, Urine - NEGATIVE???Nitrite, Urine - NEGATIVE???Leukocyte, Urine - NEGATIVE???Urobilin ogen - NORMAL? ?WBC's, Urine - <1 /HPF? ?RBC's, Urine - <1 /HPF? ?Mucus - SLIGHT? ?Hold UrineCulture - Testing available 48 hours from time of collection. Allergies (NKA means No Known Allergies) NKA No Known Medication Allergies Problems Active Problems??(1) Obese class I?? Education Materials Below is the list of Educational Leaflet Providered with your Discharge Instructions. Valuables and Belongings I fully understand and agree that [facility] accepts no responsibility for all my personal property including clothing, toilet articles, radios, jewelry, dentures, hearing aids, rings, money, or any other property that is in my possession or is brought to me after admission. I understand certain valuables may be placed in a hospital safe for a short period of time. I understand that the hospital is not liable for loss or damage due to accident, fire, or other natural occurrence while said property is in the safe. I accept full responsibility for any personal property that I keep with me, and will not hold the hospital responsible in case of loss or disappearance. I acknowledge that i have been encouraged to send valuables and belongings home. ?? No Valuables/Belongings: No valuables/belongings present Review of Valuable and Belonging List: With patient Date for Pt to Sign Valuables/Belongings: 10/07/23 21:48:00 ?? Other Discharge Information ? Pulmonary Rehab Status?? Pulmonary Rehab Discharge Status?? Respiratory Rate: 18 br/min ? Common Emergency Awareness Tips IS IT A STROKE? Act FAST and Check for these signs: FACE Does the face look uneven? ARM Does one arm drift down? SPEECH Does their speech sound strange? TIME Call at any sign of stroke ?? Heart Attack Signs Chest discomfort: Most heart attacks involve discomfort in the center of the chest and lasts more than a few minutes, or goes away and comes back. It can feel like uncomfortable pressure, squeezing, fullness or pain. Discomfort in upper body: Symptoms can include pain or discomfort in one or both arms, back, neck, jaw or stomach. Shortness of breath: With or without discomfort. Other signs: Breaking out in a cold sweat, nausea, or lightheaded. Remember, MINUTES DO MATTER. If you experience any of these heart attack warning signs, call to get immediate medical attention! ?? Smoking can increase your chances of developing chronic health problems and can cause harmful effects to other family members in your house. If you smoke, you are strongly encouraged to quit. Please call [facility] [employer] Link at [phone] or [phone]) or log in to [email or web address] for referrals to smoking cessation programs. ?? 490 Suicide & Crisis Lifeline is available 21/02 if you or someone you know needs to find a reason to keep living. By calling 360 you'll be connected to a skilled, trained counselor at a crisis center in your area. INPATIENT DISCHARGE INSTRUCTIONS SIGNATURE PAGE RICHIE SIERRA Location:[facility] Registration Date and Time:10/07/2023 19:23 EST Primary Care Physician: Not on Staff, PCP Attending Physician: Cody Buitrago DO, I RICHIE SIERRA, have received the above patient education materials/instructions and have verbalized understanding. If ambulance or transport services are being used I further acknowledge being given a choice of service. ?? If you need to contact me, please call me at this number: . Patient/Cold Strip Feeder Name: Patient/Cold Strip Feeder Signature: Relationship to Patient: Witness Name/Signature: Date: Patient Care team information Care Team Personnel Name: Donal RED, Trinidad Cowan Position: [facility] RN Member Role: Primary Care Nurse Name: Not on Staff, PCP Position: [facility] Physician (General Medicine) Member Role: PCP Care Team Related Persons Name: AYDEN HARVEY Address: [address] [address] Name: RICHIE COHN Address: home [address] [place] [id number]
--- OUTSIDE RECORDS SUMMARY | 2024-03-21 05:42 | XMS_ITS | Continuity of Care Document ---
Author Organization [facility] ter Address [address] [place] [id number]- Care Team Providers Care Press Feeder Name Role Phone Jalil PAUL, Adrian Crawley Primary Care Physician Encounter [facility] Date(s): 12/23/20 - 12/25/[address] [address]- Discharge Disposition: A-Transfer VNA/Home Health Attending Physician: Andrae Alexis MD Admitting Physician: David Do MD Referring Physician: Not on Staff, Referring MD Allergies, Adverse Reactions, Alerts Substance Reaction Severity Status NKA Active Medications melatonin 3 mg oral tablet, extended release 1 tablet = 3 mg, By Mouth, Daily at bedtime, # 30 tablet, 0 Refills, Maintenance, 12/25/20 16:38:00EDT, ER Tablet, [facility], Partial fill upon patient request if the prescription is for a schedule II opioid drug., 1 tablet By Mouth Da... Start Date: 12/25/20 Status: Ordered mirtazapine 15 mg oral tablet See Instructions, 0.5 tablet By Mouth Daily at bedtime for 1 week Followed by 1 tablet daily onwards., # 25 tablet, 0 Refills, Maintenance, 12/25/20 16:40:00 EDT, Tablet, [facility], Partial fill upon patient request if the prescription... Start Date: 12/25/20 Status: Ordered Vital Signs Most recent to oldest [Reference Range]: 1 2 3 Oxygen Saturation [94-100 %] 97 % (12/25/20 4:17 PM) 99 % (12/25/20 11:49 AM) 100 % (12/25/20 6:16 AM) Pulse Rate [55-90 bpm] 70 bpm (12/25/20 4:17 PM) 73 bpm (12/25/20 11:49 AM) 60 bpm (12/25/20 6:16 AM) Blood Pressure [90-138/55-84 mm Hg] 144/81mm Hg *H* (12/25/20 4:17 PM) 151/87mm Hg *H* (12/25/20 11:49 AM) 139/91mm Hg *H* (12/25/20 6:16 AM) Respiratory Rate [16-30 br/min] 18 br/min (12/25/20 4:17 PM) 18 br/min (12/25/20 11:49 AM) 18 br/min (12/25/20 6:16 AM) Temperature [96.8-100.4 DegF] 98.1 DegF (12/25/20 4:17 PM) 98.4 DegF (12/25/20 11:49 AM) 98.0 DegF (12/25/20 6:16 AM) Liters per Minute 1 L/min (12/23/20 10:09 PM) 1 L/min (12/23/20 7:51 PM) 1 L/min (12/23/20 7:51 PM) Mode of Delivery (Oxygen) Room air (12/25/20 4:17 PM) Room air (12/25/20 11:49 AM) Room air (12/25/20 6:16 AM) Blood pressure sites Arm, right (12/25/20 4:17 PM) Arm, left (12/25/20 11:49 AM) Arm, left (12/25/20 6:16 AM) Temperature Route Oral (12/25/20 4:17 PM) Oral (12/25/20 11:49 AM) Oral (12/25/20 6:16 AM) Social History Social History Type Response Sex Male
--- OUTSIDE RECORDS SUMMARY | 2024-03-21 05:42 | XMS_ITS | Continuity of Care Document ---
Author Organization [facility] ter Address [address] [place] [address]- Care Team Providers Care Director Of Social Services Name Role Phone Not on Staff, PCP Primary Care Physician Unavail able [place] [facility] 01/10/24 - 01/10/[address] [address]- Discharge Disposition: A-D/C Home Attending Physician: Elkin Post MD Admitting Physician: Elkin Post MD Referring Physician: Not on Staff, Referring MD Allergies, Adverse Reactions, Alerts No Known Allergies Medications Acetaminophen Tablet 975 mg, Tablet, By Mouth, Once, STAT, 01/10/24 19:16:00 EDT, Stop date 01/10/24 19:16:00 EDT Start Date: 01/10/24 Stop Date: 01/10/24 Status: Completed hydrochlorothiazide 25 mg oral tablet 25 mg, By Mouth, Daily, # 30 capsule, Refills 0, Tot. Refills 0, Maintenance, 10/09/23 9:02:00 EDT,Route to Pharmacy Electronically, [facility], Partial fill upon patient request if the prescription is for a schedule II opioid drug., 18... Start Date: 10/09/23 Stop Date: 11/08/23 Status: Ordered Lexapro 10 mg oral tablet = 10 mg, By Mouth, Daily, # 30 capsule, 0 Refills, Maintenance, 10/09/23 9:01:00 EDT, Tablet, [facility], Partial fill upon patient request if the prescription is for a schedule II opioid drug., 180, cm, 10/09/23 8:51:00 EDT, Height, 110... Start Date: 10/09/23 Stop Date: 11/08/23 Status: Ordered lidocaine 4% topical film 1 patch, Topically, Daily, # 6 each, 0 Refills, Maintenance, 01/10/24 23:17:00 EDT, Film, [facility]acy #[id number], Partial fill upon patient request if the prescription is for a schedule II opioid drug., 1 patch Topically Daily, 180, cm, 10/09/23 8:51:00 E... Start Date: 01/10/24 Status: Ordered NIFEdipine (Eqv-Adalat CC) 60 mg oral tablet, extended release 1 tablet = 60 mg, By Mouth, Daily, # 30 tablet, 0 Refills, Maintenance, 01/10/24 23:16:00 EDT, ER Tablet, [facility]acy #[id number], Partial fill upon patient request if the prescription is for a schedule II opioid drug., 180, cm, 10/09/23 8:51:00 EDT, Heigh... Start Date: 01/10/24 Status: Ordered NIFEdipine 60 mg oral tablet, extended release 60 mg, ER Tablet, By Mouth, STAT, 01/10/24 19:52:00 EDT Start Date: 01/10/24 Stop Date: 01/10/24 Status: Completed NIFEdipine 60 mg oral tablet, extended release 60 mg, By Mouth, Daily, # 30 capsule, Refills 0, Tot. Refills 0, Maintenance, 10/09/23 9:02:00 EDT,Route to Pharmacy Electronically, [facility], Partial fill upon patient request if the prescription is for a schedule II opioid drug., 18... Start Date: 10/09/23 Stop Date: 11/08/23 Status: Ordered nitroglycerin 0.4 mg sublingual tablet 0.4 mg, Tablet, Sublingual, Once, Routine, 01/10/24 20:00:00 EDT, Stop date 01/10/24 20:00:00 EDT Start Date: 01/10/24 Stop Date: 01/10/24 Status: Completed Potassium Chloride (Eqv-K-Tab) 20 mEq oral tablet, extended release 1 tablet = 20 mEq, By Mouth, Daily, # 30 tablet, 0 Refills, Maintenance, 10/09/23 9:03:00 EDT, [facility], Partial fill upon patient request if the prescription is for a schedule II opioid drug., 180, cm, 10/09/23 8:51:00 EDT, Height, 11... Start Date: 10/09/23 Stop Date: 11/08/23 Status: Ordered Toradol Inj 15 mg, Injection, IV Push Slowly, Once, STAT, 01/10/24 19:46:00 EDT, Stop date 01/10/24 19:46:00 EDT Start Date: 01/10/24 Stop Date: 01/10/24 Status: Completed Problem List Condition Confirmation Course Effective Dates Status Health St atus Informant Obese class I Confirmed Active Results Radiology Reports * Exam Date Time Procedure Performing Provider Status 01/10/24 8:47 PM Chest 2 Views Frontal and Lat Bebeto Nova; Auth (Verified) Notes: (Chest 2 Views Frontal and Lat) Reason For Exam: Shortness of Breath, Fever;Other: RESULT: Chest 2 Views Frontal and Lat Chest 2 Views Frontal and Lat Reason: Other:; Shortness of Breath, Fever; Clinical Question(s): Pneumonia / Pneumonia COMPARISON: 07/05/2021 FINDINGS: LINES AND TUBES: None. LUNGS AND PLEURA: Clear lungs. Normal pulmonary vascularity. No pleural effusion. No pneumothorax. HEART, MEDIASTINUM AND ANDRIY: Heart is normal in size. Normal mediastinal and hilar contour. BONES AND SOFT TISSUES: No acute abnormality. IMPRESSION: No evidence of acute abnormality. WSN: [id number] Ordering Physician: Severo Garcia Dictated By: Magdi Thomas MD Dictated Date/Time: 01/10/24 8:50 pm Reviewed By: Magdi Thomas MD Signed By: Magdi Thomas MD Signed Date/Time: 01/10/24 8:50 pm Transcribed By: MARIA DEL CARMEN Transcribed Date/Time: 01/10/24 8:50 pm * Exam Date Time Procedure Performing Provider Status 01/10/24 7:[address] Head-Hyper Acute Stroke Priscilla Salazar; Auth (Verified) Notes: (CT Head-Hyper Acute Stroke) Reason For Exam: Neuro deficit, acute, stroke suspected;Other: RESULT: CT Head-Hyper Acute Stroke CT Head-Hyper Acute Stroke INDICATION: Reason: Other:; Neuro deficit, acute, stroke suspected; Clinical Question(s): Other:; Hematoma Infarction TECHNIQUE: Noncontrast head CT using axial technique and reconstructed in axial and coronal planes.Iterative reconstruction techniques are used to optimize dose and image quality. COMPARISON: 10/07/2023 FINDINGS: Sample Hand view findings, lines and tubes: None. BRAIN AND EXTRA-AXIAL SPACES: No parenchymal hemorrhage, midline shift, or mass effect. Gama-white matter differentiation is wellpreserved. No acute infarct. Ventricles, sulci, and basilar cisterns are normal. No white matter lesions. No subarachnoid hemorrhage. No subdural or epidural collection. CALVARIUM, SKULL BASE, AND SOFT TISSUES: No fractures or suspicious bony lesions. The paranasal sinuses and mastoid air cells are clear. Visualized orbits and globes are intact. The extracranial soft tissues are unremarkable. IMPRESSION: No evidence of acute intracranial abnormality. WSN: [id number] Ordering Physician: Severo Garcia Dictated By: Magdi Thomas MD Dictated Date/Time: 01/10/24 7:34 pm Reviewed By: Magdi Thomas MD Signed By: Magdi Thomas MD Signed Date/Time: 01/10/24 7:34 pm Transcribed By: MARIA DEL CARMEN Transcribed Date/Time: 01/10/24 7:32 pm Vital Signs Most recent to oldest [Reference Range]: 1 2 3 Oxygen Saturation [94-100 %] 99 % (01/10/24 10:31 PM) 99 % (01/10/24 6:14 PM) Pulse Rate [55-90 bpm] 70 bpm (01/10/24 10:31 PM) 75 bpm (01/10/24 6:14 PM) Blood Pressure [90-138/55-84 mm Hg] 155/90mm Hg *H* (01/10/24 10:31 PM) 160/100mm Hg *H* (01/10/24 8:30 PM) 166/130mm Hg *H* (01/10/24 7:41 PM) Respiratory Rate [16-30 br/min] 18 br/min (01/10/24 10:31 PM) 18 br/min (01/10/24 10:13 PM) 18 br/min (01/10/24 8:42 PM) Temperature [96.8-100.4 DegF] 97.8 DegF (01/10/24 6:14 PM) Mode of Delivery (Oxygen) Room air (01/10/24 10:31 PM) room air (6/11/24 6:14 PM) Blood pressure sites Arm, right (01/10/24 10:31 PM) Arm, right (01/10/24 6:14 PM) Temperature Route Oral (01/10/24 6:14 PM) Social History Social History Type Response Smoking Status 10 or more cigarette s (1/2 pack or more)/day in last 30 days entered on: 03/29/23 Sex Patient Care team information Care Team Personnel Name: Donal RED, Trinidad Cowan Position: S RN Member Role: Primary Care Nurse Name: Not on Staff, PCP Position: [facility] Physician (General Medicine) Member Role: PCP Care Team Related Persons Name: ANDREW HARVEY Address: home [address] [address] Name: AYDEN HARVEY Address: home [address] [place] [address] Name: ANDRÉS KENYON Address: home [address] [place] [id number]
--- OUTSIDE RECORDS SUMMARY | 2024-03-21 05:42 | XMS_ITS | Continuity of Care Document ---
Author Organization [facility] ter Address [address] [place] [address]- Care Team Providers Care Application Specialist Name Role Phone Not on Staff, PCP Primary Care Physician Unavail able [place] [facility] Date(s): 07/05/21 - 07/06/[address] [address]- Encounter Diagnosis Chest pain(Final) - 07/06/21 Episode of shaking(Final) - 07/06/21 Discharge Disposition: A-D/C Home Attending Physician: Hanny Hannah DO Admitting Physician: Hanny Hannah DO Referring Physician: Not on Staff, Referring MD Allergies, Adverse Reactions, Alerts No Known Medication Allergies Medications MorPHINE Inj 2 mg, Injection, IV Push Slowly, Every 5 minutes for 3 doses/times, PRN for Pain , Moderate, and SBP greater than 100, Routine, 07/05/21 22:29:00 EST, Stop date Limited # of times Start Date: 07/05/21 Stop Date: 07/06/21 Status: Discontinued Results Radiology Reports * Exam Date Time Procedure Performing Provider Status 07/05/21 11:41 PM Chest 2 Views Frontal and Lat Ember Saunders; Auth (Verified) Notes: (Chest 2 Views Frontal and Lat) Reason For Exam: Traumatic Chest Pain;Other: RESULT: Chest 2 Views Frontal and Lat Chest 2 Views Frontal and Lat Reason: Other:; Traumatic Chest Pain; Clinical Question(s): Other:; Pneumothorax, Fracture COMPARISON: None. FINDINGS: LINES AND TUBES: None. LUNGS AND PLEURA: The lung volumes are low which accentuates the cardiac silhouette and pulmonary vasculature and causes crowding of bronchovascular markings at the bases. No focal pulmonary opacity. No pleural effusion. No pneumothorax. HEART, MEDIASTINUM AND ANDRIY: Heart is normal in size. Normal upper mediastinal and hilar contour. BONES AND SOFT TISSUES: No acute abnormality. Probable focal sclerosis along the inferior aspect of a lower thoracic vertebral body seen on the lateral radiograph. IMPRESSION: Low lung volumes. No definite radiographic evidence of acute cardiopulmonary disease. Probable focal sclerosis along the inferior aspect of the lower thoracic vertebral body seen on thelateral radiograph, versus superimposition artifact. May consider repeat PA and lateral chest radiographs with better inspiration. WSN: [id number] Ordering Physician: Divya Engle Dictated By: Ramila Ngo MD Dictated Date/Time: 07/05/21 11:46 p Reviewed By: Ramila Ngo MD Signed By: Ramila Ngo MD Signed Date/Time: 07/05/21 11:46 pm Transcribed By: MARIA DEL CARMEN Transcribed Date/Time: 07/05/21 11:43 pm Vital Signs Most recent to oldest [Reference Range]: 1 2 3 Oxygen Saturation [94-100 %] 99 % (07/06/21 1:24 AM) 99 % (07/05/21 11:56 PM) 95 % (07/05/21 10:07 PM) Pulse Rate [55-90 bpm] 74 bpm (07/06/21 1:24 AM) 69 bpm (07/05/21 11:56 PM) 76 bpm (07/05/21 10:07 PM) Blood Pressure [90-138/55-84 mm Hg] 160/91mm Hg *H* (07/06/21 1:24 AM) 140/92mm Hg *H* (07/05/21 11:56 PM) 157/107mm Hg *H* (07/05/21 10:07 PM) Respiratory Rate [16-30 br/min] 16 br/min (07/06/21 1:24 AM) 17 br/min (07/06/21 12:10 AM) 12 br/min *L* (07/05/21 11:56 PM) Temperature [96.8-100.4 DegF] 98.0 DegF (07/05/21 11:56 PM) 97.6 DegF (07/05/21 10:07 PM) Mode of Delivery (Oxygen) Room air (07/06/21 1:24 AM) Room air (07/05/21 11:56 PM) Room air (07/05/21 10:07 PM) Temperature Route Oral (07/05/21 11:56 PM) Oral (07/05/21 10:07 PM)
[2024-03-21 07:51] VITALS: BP 143/74; PULSE 63; RESP 16; TEMP 36.3; O2SAT 99
--- NOTE | 2024-03-21 08:53 | P.DS_ITS ---
DS: Providers Provider Date of Service: 03/21/24 Date of admission: 03/14/24 16:28 Date of discharge: 03/21/24 Primary care physician: Unknown Physician Admitting clinician: Yolette Estrella Attending physician on admission: Camden Loza Consults: 03/14/24 17:39 Addiction Medicine Routine Consulting Provider: Addiction Covering Reason for consultation: interested in MAT Has provider been notified: Yes 03/16/24 13:41 Consult to Hospitalist Routine Comment: Consulting Provider: Hospitalist Reason For Exam: Hypertension 03/18/24 21:58 Consult to Hospitalist Routine Comment: Consulting Provider: Hospitalist Reason For Exam: radiating CP, facial numbness Attending physician on discharge: Camden Loza Discharging clinician: Chana Mccray DS: Diagnosis Discharge Diagnosis (1) MDD (major depressive disorder), recurrent, severe, with psychosis: Status: Acute (2) Opioid use disorder, moderate, dependence: Status: Acute (3) Cocaine use disorder, moderate, dependence: Status: Acute DS: Medications Discharge Medications Home Medications: Home Medications ?Medication ?Instructions ?Recorded ?Confirmed cyclobenzaprine 5 mg tablet 10 mg PO TID PRN Muscle Spasm 03/14/24 03/14/24 Previous Rx's ?Medication ?Instructions ?Recorded buprenorphine 2 mg-naloxone 0.5 mg 1 film sublingual BID@0900,1700 7 03/21/24 sublingual film (Suboxone) days #14 ea hydrochlorothiazide 25 mg tablet 25 mg PO DAILY 30 days #30 tabs 03/21/24 hydroxyzine HCl 25 mg tablet 25 mg PO BID PRN Anxiety 30 days 03/21/24 #60 tabs nifedipine 60 mg tablet,extended 60 mg PO DAILY 30 days #30 tabs 03/21/24 release 24 hr trazodone 50 mg tablet 50 mg PO BEDTIME PRN Insomnia 30 03/21/24 days #30 tabs Mental Status Exam Mental Status Exam Narrative: Pt is alert and oriented; behavior is cooperative, calm; dressed in casual attire; mood is described as good ; eye contact appropriate; Speech is normal rate, volume and not pressured; thought process is organized and goal directed; Thought content is on tx; denies SI/HI/VH/AH. Data Data Completed and Pending Completed studies during hospitalization [Text1]: 08/14/24 08/14/24 08/14/24 08:00 14:54 14:55 Magnesium 2.4 2.5 Troponin I High Sens 9.1 03/18/24 22:37 Magnesium Troponin I High Sens 7.8 DS: Summary Hospital Course Hospital Course: Mr. Cohn is a 33 year-old male with hx of opioid, cocaine and alcohol use disorder. He self presented to [facility] ED reporting increase in substance use, increased depression, hopelessness, but denied any plan or intent to harm himself or others. In the ED, his utox was positive for buprenorphine, fentanyl, cocaine and cannabis. His BAL was negative. Labs include cbc mostly unremarkable. CMP with slightly low potassium, 3.4 but given potassium chloride 20 meq in ED. Mag 2.4. BUN 11, Cr 1.14, LFT wnl. EKG does show Qtc prolongation 515, troponin 9. ordered repeat EKG for 03/15/2024. SBP in 180's- given clonidine with good effect with a repeat later of SBP in 130's. Pt seen after having taking ativan and presented someone somnolent. Interview limited by this. Pt reports increase use in cocaine which he reports is daily and opioid medications which he reports buys on the streets, utox shows fentanyl, not oxycodone. He denies any plan or intent to harm himself or others. He had reported to the care team clinician some suspicion that people are following him. His also reported to corporate intern that pt appears more paranoid and at times talking to someone who is not there. When this typewriter repairer asks he is vague about it. He reports he is interested in MAT. He reports alcohol use is minimal and he has never experience alcohol withdrawal symptoms. He states substance of choice is cocaine and opioids. Mr. Cohn is a 33 year-old male with hx of cocaine and opioid use disorder. He self presented to [facility] ED reporting increased substance use mainly cocaine and opioids. He does report some alcohol use 2 beers daily, but denies hx of alcohol withdrawal. This is his first inpatient psychiatric admission. It also appears that as substance use has increased, pt is now experiencing psychosis and paranoid- this may be transient and mostly substance induce although possibility of psychosis and delusions of becoming more permanent. Medical work up does show Qtc prolongation 514, K repleated but ideally to keep>4, Mg is 2.5. troponins were 9, he denies chest pain. His BP has also been quiet elevated SBP 180's suspect this mostly related to cocaine use rather than alcohol withdrawal. start clonidine 0.1mg po BID. Pt is interested in addiction medicine consult to discuss MAT. He reports he has never been on either buprenorphine nor methadone. PLAN 1. Admit to M3, CV, 15 minutes checks for safety 2. will not continue oxycodone here on the unit, but instead will wait for addiction medicine consult to recommend MAT 3. clonidine 0.1mg po BID; olanzapine 5mg po q6h prn agitationy, may want to consider scheduling antipsychotic if more consistent psychosis and delusinal content noted 4. obtain collateral information 5. aftercare planning. Continue tx. EKG improved with clonidine. Lorazepam CIWA, consider tapering 03/16. Detox continues. Schedule Lorazepam- 1 mg bid x 48 hrs, then 1 mg qd x 24 hrs then re-eval. Hospitalist consult-HTN DC CIWA and COWS. continue ativan taper. nifedipine added for HTN. otherwise continue current mgmt. continue ativan taper. otherwise continue current mgmt. pleasant, cooperative, [place]ale. Calm, cooperative. tearful during 1:1. Pt reports feeling anxious and depressed ; pt stated, I'm torn between staying here and getting help or going home. I have a lot of built up things I want to talk about but I know I can do that with a therapist . Pt denies SI/HI/VH/AH. Pt reports he plans on speaking with his today to discuss discharge plan. Pt reports feeling good today; pt stated, visit with his yesterday went well. He is looking forward to discharging tomorrow. Pt reports he plans on following up with outpatient providers and attending individual and family therapy. pt denies SI/HI/VH/AH. Patient reports feeling good ; denies SI/HI/VH/AH. Pt reports he plans on following up with outpatient providers. Time spent discussing smoking cessation with patient: 3 to 10 minutes Status at Discharge Cognitive/behavioral status at discharge: Patient was interviewed prior to discharge and found to be fully oriented and without SI or HI. Patient has insight and demonstrates good judgment in terms of wanting to pursue treatment. Patient has a safety plan that includes presenting to the closest ER or calling 911 if feeling unsafe. Functional status at discharge: independent ambulation Overall status at discharge: patient is back to baseline Time Spent with Patient Time attestation: Total time managing care of this patient today _20___ minutes. Time spent: Less than 30 minutes Discharge Plan Discharge Anticipated Discharge Date/Time: 03/21/24 11:00 Patient Disposition: Home, Self-Care Discharge Diagnosis: MDD, opiate use d/o, cocaine use d/o Referrals: Suboxone: Robina Sofia ([facility]) [Other] - 03/28/24 1:00 pm (Enter through the Main Entrance, take elevators D or E to the 4th floor, take a right off the elevator ) Therapy Intake: Dilia Soler ([facility]) [Other] - 03/22/24 12:30 pm (Appointment is in person at the office in [place]. Please arrive 15 minutes early to complete paperwork) [facility] [Provider Group] - 1 Week ([facility] was added to patients chart. Please call [phone] for a follow up appt.) Discharge Medications: New hydrochlorothiazide 25 mg Tablet 25 mg PO DAILY 30 Days Qty: 30 0RF Protocol: Hold for SBP< HOLD for SBP < : 90 nifedipine 60 mg Tablet Extended Release 24hr 60 mg PO DAILY 30 Days Qty: 30 0RF Protocol: Hold for SBP< HOLD for SBP < : 90 hydroxyzine HCl 25 mg Tablet 25 mg PO BID PRN (Reason: Anxiety) 30 Days Qty: 60 0RF buprenorphine-naloxone [Suboxone] 2-0.5 mg Film 1 film sublingual BID@0900,1700 7 Days Qty: 14 0RF trazodone 50 mg Tablet 50 mg PO BEDTIME PRN (Reason: Insomnia) 30 Days Qty: 30 0RF Continued cyclobenzaprine 5 mg Tablet 10 mg PO TID PRN (Reason: Muscle Spasm) Rx Instructions: #21 filled at [facility] and not picked up by pt on 03/06/24. [facility] returned to shelf. Discontinued oxycodone 5 mg Tablet 5 mg PO Q6H PRN (Reason: Pain) Patient Comments: #12 filled at [facility] 03/06/24 and not picked up by pt. [facility] returned to shelf. acetaminophen 500 mg Tablet 1,000 mg PO Q6H PRN (Reason: Pain) Patient Comments: #20 filled by [facility] on 03/06/24 and not picked up by pt. [facility] returned to shelf. ibuprofen 600 mg Tablet 600 mg PO TID Patient Comments: #20 Last filled at [facility] on 03/06/24, but not picked up by pt. [facility] returned to shelf. Discharge Orders: Discharge Order (Routine); Ordered 03/21/24 Ordered By: Chana Mccray Diet: Regular diet Activity on Discharge: As tolerated Stand Alone Forms: Patient Portal Discharge page, Community Support Print Language: Faroese Care Plan Goals: Maintain mood and safe behaviors Take medications as prescribed Continue to pursue sobriety Practice coping skills Continue with outpatient providers and reach out to them as needed Health Concerns: Mood stability and behaviors Sobriety Follow up with PCP regarding blood pressure. Plan of Treatment: Follow up with your PCP, psychiatric provider and other outpatient providers regarding above concerns Take medications as prescribed Assessment: Patient was interviewed prior to discharge and found to be fully oriented and without SI or HI. Patient has insight and demonstrates good judgment in terms of wanting to pursue treatment. Patient has a safety plan that includes presenting to the closest ER or calling 911 if feeling unsafe. Discharge Date/Time: 03/21/24 11:25
[2024-03-21] MEDS: Thiamine HCL 100 MG TABLET PO (09:12)
[2024-03-21 09:13] VITALS: BP 158/103
[2024-03-21] MEDS: NIFEdipine ER 60 MG TAB.ER.24 PO (09:13)
[2024-03-21] MEDS: cloNIDine HCL 0.1 MG TABLET PO (09:13)
[2024-03-21 09:14] VITALS: BP 158/103
[2024-03-21] MEDS: Multivitamin TABLET 1 TAB PO (09:14)
[2024-03-21] MEDS: Folic Acid 1 MG TABLET PO (09:14)
[2024-03-21] MEDS: hydroCHLOROthiazide 25 MG TABLET PO (09:14)
[2024-03-21] MEDS: Buprenorphine/Naloxone 2/0.5mg FILM 1 FILM SUBLINGUAL (09:15)
== END 2024-03-21 11:25 | disposition home or self-care (01) | DRG 751 ==
LOC: HO.ED 11:23 → HO.PADLT16 16:41
PROVIDERS: Social Worker; Student in an Organized Health Care Education/Training Program; Admitting Provider Psychiatry & Neurology Psychiatry; Emergency Provider Emergency Medicine; Responsible Provider Registered Nurse; Visit Provider Psychiatry & Neurology Psychiatry
DX: F33.3 Major depressive disorder, recurrent, severe with psychotic symptoms (principal); F11.20 Opioid dependence, uncomplicated; F14.20 Cocaine dependence, uncomplicated; F17.210 Nicotine dependence, cigarettes, uncomplicated; I10 Essential (primary) hypertension; F19.90 Other psychoactive substance use, unspecified, uncomplicated; Z71.6 Tobacco abuse counseling; Z79.899 Other long term (current) drug therapy
CPT/HCPCS: 36415; 80048; 80076; 80307; 81001; 83735; 84484; 85025; 92950; 93005; 99285; S9485

== ENCOUNTER → 2024-03-14 10:13 | Outpatient (BNV) | payer MEDICAID, SELFPAY | PROVIDERS: Admitting Provider Psychiatry & Neurology Psychiatry; Emergency Provider Emergency Medicine; Visit Provider Internal Medicine | DX: R94.31 Abnormal electrocardiogram [ECG] [EKG] (principal) | CPT/HCPCS: 93010 ==

== ENCOUNTER → 2024-03-14 16:28 | Outpatient (BNV) | payer OTHER, SELFPAY | PROVIDERS: Admitting Provider Psychiatry & Neurology Psychiatry; Emergency Provider Emergency Medicine; Visit Provider Nurse Practitioner Psychiatric/Mental Health | DX: F11.20 Opioid dependence, uncomplicated (principal) | CPT/HCPCS: 99499 ==

== ENCOUNTER → 2024-03-14 16:28 | Outpatient (BNV) | payer OTHER, SELFPAY | PROVIDERS: Admitting Provider Psychiatry & Neurology Psychiatry; Emergency Provider Emergency Medicine; Visit Provider Clinical Nurse Specialist Psychiatric/Mental Health, Adult | DX: F33.3 Major depressive disorder, recurrent, severe with psychotic symptoms (principal); F11.20 Opioid dependence, uncomplicated; F14.20 Cocaine dependence, uncomplicated | CPT/HCPCS: 99231; 99232 ==

== ENCOUNTER 2024-03-22 02:07 | Emergency (ER) | payer MEDICAID, SELFPAY ==
[2024-03-22] VITALS (9 sets, daily range): BP systolic 127–146; BP diastolic 61–88; PULSE 69–90; RESP 15–18; TEMP 36.7–36.9; O2SAT 95–99; BMI 30.1; BMI 32.8
--- NOTE | 2024-03-22 | ECG_ITS ---
Test Reason : CHEST PAIN Blood Pressure : / mmHG Vent. Rate : 090 BPM Atrial Rate : 090 BPM P-R Int : 150 ms QRS Dur : 090 ms QT Int : 368 ms P-R-T Axes : 045 007 041 degrees QTc Int : 450 ms Normal sinus rhythm Possible Left atrial enlargement Borderline ECG When compared with ECG of 18-MAR-2024 22:04, No significant change was found Referred By: Generic ED Physician Electronically Signed By:KOLBY BAKER
--- NOTE | ~2024-03-22 | XR_ITS ---
EXAMINATION: XR CHEST CLINICAL INFORMATION: Chest pain COMPARISON: None available. TECHNIQUE: Frontal view of the chest was obtained. FINDINGS: Normal appearance of the cardiomediastinal structures. Pleura low lung volumes with the fifth anterior rib segments terminating projection of the lung bases. Normal pattern of pulmonary vasculature. No focal pulmonary consolidation. XR/XR chest 1V IMPRESSION: Low lung volumes; otherwise, normal chest. Electronically signed by: Gerber Arita MD 03/22/2024 03:21 AM EDT
[2024-03-22 02:27] LABS: MANUAL DIFF FLAG NO
[2024-03-22 02:29] LABS: Basophils Absolute Auto 0.1 X10*3/uL (0.0-0.2); Basophils Percent Auto 0.6 % (0-2); Eosinophils Absolute Auto 0.2 X10*3/uL (0.0-0.4); Eosinophils Percent Auto 1.5 % (0-4); Hematocrit 45.5 % (42.0-52.0); Hemoglobin 16.7 g/dl (14.0-18.0); Imm Gran Abs Auto 0.01 X10*3/uL (0.00-0.03); Imm Gran Pct Auto 0.1 % (0.0-0.4); Lymphocytes Absolute Auto 3.3 X10*3/uL (1.2-4.9); Lymphocytes Percent Auto 33.3 % (20-40); Mean Corpuscular HGB Conc 36.7 g/dl (31.0-36.0); Mean Corpuscular Hemoglobin 32.1 pg (27.0-33.0); Mean Corpuscular Volume 87.5 fL (80.0-98.0); Monocytes Absolute Auto 0.6 X10*3/uL (0.1-1.2); Monocytes Percent Auto 6.1 % (2-11); Neutrophils Absolute Auto 5.8 x10*3/uL (2.0-8.3); Neutrophils Percent Auto 58.4 % (45-73); Platelet Count 261 X10*3/uL (160-400); Red Cell Distribution Width 12.1 % (11.0-16.0); White Blood Count 9.9 X10*3/uL (4.8-10.8)
--- NOTE | 2024-03-22 02:30 | MHC.EDTECH ---
Patient was biba ,vitals taken ekg done and was read by Provider ,Patient was assisted to change into hospital gown ,Pt was hooked up to wind farm electrical systems designer ,Pt at bedside ,Call tracey within Pt reach .
[2024-03-22 02:42] LABS: Alanine Aminotransferase 148 U/L (0-40); Albumin Level 4.5 g/dL (3.5-5.0); Alkaline Phosphatase 95 U/L (39-117); Anion Gap 19 (12-20); Aspartate Amino Transferase 79 U/L (5-37); Bilirubin Total 0.2 mg/dL (0.0-1.0); Blood Urea Nitrogen 17 mg/dL (9-16); Calcium 9.9 mg/dL (8.4-10.2); Carbon Dioxide 21 mmol/L (22-29); Chloride 101 mmol/L (96-108); Creatinine Clr Calc Pharmacy 85.9; Estimated Glomerular Filt Rate 58; Glucose Random 158 mg/dL (60-115); Potassium 3.2 mmol/L (3.3-5.1); Sodium 138 mmol/L (135-145); Total Protein 7.9 g/dL (6.5-8.0)
[2024-03-22 02:49] LABS: Troponin-I High Sensitivity 39.1 ng/L (<3.5-35.0)
--- NOTE | 2024-03-22 03:11 | PC.NURSE ---
on arrival pt reporting L. sided cp onset approx 0145, resting at onset of cp. iv established. ekg obtained. labs sent. made aware of 03/10 pain. pt on heart monitor. awaiting primary eval by ed provider. at bedside. call tracey within reach.
--- OUTSIDE RECORDS SUMMARY | 2024-03-22 03:12 | XMS_ITS | Patient Health Record ---
Author Organization [facility] Address [address], [place] [id number] Care Team Providers Care Senior Pensions Administrator Name Role Phone [facility], Nursing Primary Care Provider REASON FOR REFERRAL No Information SOCIAL HISTORY Sex Assigned At : Social History Observation Description Sex Assigned At Unknown PLAN OF TREATMENT No Information Insurance Providers Payer Name Payer Address Payer Phone Subscriber Number Group Number Insured Name Patient Relationship to Insured Coverage Start Date Coverage End Date [place] Medicaid C3 [address] [place], [place] [id number] Richie Soni Self - patient is the insured 1
--- NOTE | 2024-03-22 03:37 | ECG_ITS ---
Test Reason : CP Blood Pressure : / mmHG Vent. Rate : 080 BPM Atrial Rate : 080 BPM P-R Int : 144 ms QRS Dur : 090 ms QT Int : 412 ms P-R-T Axes : 059 015 049 degrees QTc Int : 475 ms Normal sinus rhythm Possible Left atrial enlargement Nonspecific ST abnormality Abnormal ECG When compared with ECG of 22-MAR-2024 02:09, No significant change was found Referred By: Artie Mann Electronically Signed By:KOLBY BAKER
[2024-03-22] MEDS: Nitroglycerin 0.4 MG TAB.SUBL SUBLINGUAL (03:42)
[2024-03-22] MEDS: Ketorolac Tromethamine 30 MG/ML VIAL IVPUSH (03:43)
--- NOTE | 2024-03-22 04:04 | MHC.EDTECH ---
0400 ,Rounding done ,vitals taken ,pt very restless ,RN aware .
--- NOTE | 2024-03-22 04:13 | PC.NURSE ---
pt reports feeling worse after taking nitro and refuses next dose. MD aware and inagreement. pt also medicated with toradol. repeat ekg obtained.
[2024-03-22 04:57] LABS: Troponin-I High Sensitivity 95.9 ng/L (<3.5-35.0)
--- NOTE | 2024-03-22 05:48 | ED_ITS ---
HPI - Chest Pain General Chief Complaint: Chest Pain Stated Complaint: CHEST PAIN Time Seen by Provider: 03/22/24 03:27 Source: patient, family and EMS Mode of arrival: EMS Limitations: no limitations History of Present Illness ED Provider: Dr. Mann HPI narrative: patient has a history of cocaine use, was just discharge from psychiatry. He denies having used cocaine since before his admission. He was discharged just a few hours ago. He states that he has had CP in the past but nothing like this. complaint: chest pain Onset (ago): hour(s) Timing of current episode: constant Onset: during rest Pain location: left chest Related Data Home Medications ?Medication ?Instructions ?Recorded ?Confirmed cyclobenzaprine 5 mg tablet 10 mg PO TID PRN Muscle Spasm 03/14/24 03/14/24 Previous Rx's ?Medication ?Instructions ?Recorded buprenorphine 2 mg-naloxone 0.5 mg 1 film sublingual BID@0900,1700 7 03/21/24 sublingual film (Suboxone) days #14 ea hydrochlorothiazide 25 mg tablet 25 mg PO DAILY 30 days #30 tabs 03/21/24 hydroxyzine HCl 25 mg tablet 25 mg PO BID PRN Anxiety 30 days 03/21/24 #60 tabs nifedipine 60 mg tablet,extended 60 mg PO DAILY 30 days #30 tabs 03/21/24 release 24 hr trazodone 50 mg tablet 50 mg PO BEDTIME PRN Insomnia 30 03/21/24 days #30 tabs Allergies Allergy/AdvReac Type Severity Reaction Status Date / Time No Known Allergies Allergy Verified 03/22/24 02:12 Review of Systems 2 Review of Systems: Yes all other systems are reviewed and are negative Neurologic: Denies Sensory deficit (Neuro) PMFSH Past Medical History Medical History Patient denies medical problems Social History Social History Household Members: Spouse and Family Household Members Other:: , 2 sons, 3 daughters and 1 granddaughter Housing: House Do you presently have visiting nurse or other home services: No Alcohol intake: current Alcohol intake frequency: 3 or more drinks per day Alcohol type: beer Patient Tobacco Use Status: Current everyday Tobacco user Tobacco use type: Cigarette Cigarette Packs Per Day: 1 Cigarettes Per Day: 20.0 Years Smoked: 15 Second Hand Smoke Exposure: Yes (people who smoke around him) Substance Use Type: Crack/Cocaine and Marijuana Advance Directives: No Advance Directives Information Provided: Yes service: No Sexual orientation: Straight/Heterosexual Physical Exam 2 Vital Signs: Vital Signs: Last Vital Signs Temp 98.0 F 03/22/24 06:36 Pulse 71 03/22/24 06:36 Resp 16 03/22/24 06:36 BP 133/61 03/22/24 06:36 Pulse Ox 99 03/22/24 06:36 O2 Del Method Room Air 03/22/24 06:36 BMI result Body Mass Index 32.8 Const: General: healthy appearing Nutritional Appearance: average body habitus Orientation/consciousness: oriented to person and patient oriented x3 Limitations: no limitations HEENT: Head: Yes normal to inspection Ears: external ears normal General nose exam: Normal external nose present Mouth: Normal oral and palatal mucosa present and oropharynx normal Throat: Yes posterior oropharynx normal Eyes: General: appearance normal, both eyes and all related structures Neck: Other: supple Neck: Yes normal visual inspection Chest: Other: There is reproducible left sided chest pain Chest palpation & inspection: normal inspection of the chest Resp: Auscultation: clear to auscultation bilaterally Cardio: Jugular venous distension: no JVD Rate: regular rate Rhythm: r egular rhythm Heart sounds: S1 normal heart sound present and S2 normal heart sound present GI: Inspection: Yes normal to inspection Palpation (GI): Soft to palpation, nontender and No hepatosplenomegaly present Auscultation: normal bowel sounds : General: Yes no CVA tenderness Back/Spine/Pelvis: Back: no CVA tenderness Skin: General skin exam: no rashes or lesions noted Neuro: General: oriented to person and patient oriented x3 Cranial nerves: Yes CN's II-XII intact bilaterally Motor exam (neuro): 5/5 motor strength present throughout Sensory Exam: No Sensory deficit (Neuro) Extrem: General: Yes normal to inspection Psych: Appearance: grossly normal Course Reevaluation(s) Reevaluation #1: patient with rising troponins despite non ischemic EKG. Will start heparin and consult Dr. Fields and likely admit to [facility] [place] Time: 05:52 Reevaluation #2: I spent 40 minutes of critical care, with interventions, assessments, speaking to patient, consultants, and family. Time: 05:58 Medications Administered Generic Name Dose Route Start Last Admin Trade Name Freq PRN Reason Stop Dose Admin Nitroglycerin 0.4 mg 03/22/24 03:37 03/22/24 03:42 Nitroglycerin 0.4 Mg Tab.Subl SUBLINGUAL 0.4 mg Q5MX3 PRN Administration Chest Pain Discontinued Medications Generic Name Dose Route Start Last Admin Trade Name Freq PRN Reason Stop Dose Admin Ketorolac Tromethamine 30 mg 03/22/24 03:37 03/22/24 03:43 Ketorolac Tromethamine 30 Mg/Ml Vial IVPUSH 03/22/24 03:38 30 mg ONCE ONE Administration Nitroglycerin 1 inch 03/22/24 05:43 03/22/24 06:03 Nitroglycerin 2 % Oint 1 Gm Packet TRANSDERMA 03/22/24 05:44 1 inch ONCE ONE Administration Medical Decision Making Differential Diagnosis Differential Diagnoses: The differential diagnosis associated with the presentation includes (cardiac ischemia, stemi, costochondritis, coronary artery spasm) Admission/Observation Consideration of admission/observation: Escalation of care including admission/observation considered (upon arrival patient was considered for admission) Consult Healthcare Provider Management of the patient was discussed with: Multicut Line Operator (cardiology: dr. Fields) Lab Data 03/22/24 05:54 03/22/24 02:24 Labs: Lab Results 03/22/24 03/22/24 03/22/24 Range/Units 02:24 04:25 05:54 WBC 9.9 10.3 (4.8-10.8) X10*3/uL RBC 5.20 5.03 (4.60-5.80) X10*6/uL Hgb 16.7 16.2 (14.0-18.0) g/dl Hct 45.5 43.9 (42.0-52.0) % MCV 87.5 87.3 (80.0-98.0) fL MCH 32.1 32.2 (27.0-33.0) pg MCHC 36.7 H 36.9 H (31.0-36.0) g/dl RDW 12.1 12.3 (11.0-16.0) % Plt Count 261 254 (160-400) X10*3/uL MPV 10.0 9.8 (9.4-12.4) fL Immature Gran % (Auto) 0.1 (0.0-0.4) % Neut % (Auto) 58.4 (45-73) % Lymph % (Auto) 33.3 (20-40) % [place] % (Auto) 6.1 (2-11) % Eos % (Auto) 1.5 (0-4) % Baso % (Auto) 0.6 (0-2) % Lymph # (Auto) 3.3 (1.2-4.9) X10*3/uL [place] # (Auto) 0.6 (0.1-1.2) X10*3/uL Eos # (Auto) 0.2 (0.0-0.4) X10*3/uL Baso # (Auto) 0.1 (0.0-0.2) X10*3/uL Abs Immat Gran (auto) 0.01 (0.00-0.03) X10*3/uL Absolute Neuts (auto) 5.8 (2.0-8.3) x10*3/uL Absolute Nucleated RBC 0.000 0.000 (0.0-0.012) X10*3/uL Nucleated RBC % (auto) 0.0 0.0 (0.0-0.2) /100WBC PT 10.3 L (11.1-13.3) SEC INR 0.8 L (0.9-1.1) aPTT Heparin Protocol 30.2 L (53-77.9) SEC Sodium 138 (135-145) mmol/L Potassium 3.2 L (3.3-5.1) mmol/L Chloride 101 (96-108) mmol/L Carbon Dioxide 21 L (22-29) mmol/L Anion Gap 19 (12-20) BUN 17 H (9-16) mg/dL Creatinine 1.39 (0.5-1.4) mg/dL Estim Creat Clear Calc 85.9 Estimated GFR 58 Random Glucose 158 H (60-115) mg/dL Calcium 9.9 (8.4-10.2) mg/dL Total Bilirubin 0.2 (0.0-1.0) mg/dL AST 79 H (5-37) U/L ALT 148 H (0-40) U/L Alkaline Phosphatase 95 (39-117) U/L Troponin I High Sens 39.1 H D 95.9 H D (<3.5-35.0) ng/L Total Protein 7.9 (6.5-8.0) g/dL Albumin 4.5 (3.5-5.0) g/dL Independent Interpretation I performed an independent interpretation of an: EKG (#1: sinus [address] or twave changes #2: sinus 75, slight jpoint elevation anteriorly) and Plain X- Ray (CXR: no infiltrate) Independent Historian Clinical information obtained from an independent historian. History obtained from or confirmed by: Spouse and EMS Prescription Management I considered prescription management with: Antibiotic (no evidence of pneumonia on xray) Chronic Conditions Patient?s care impacted by: Other (cocaine use) Social Determinants Patient?s care significantly limited by Social Determinants of Health including: Alcoholism and drug addiction in family Discharge Plan Discharge Clinical Impression: Chest pain, Cocaine use disorder, moderate, dependence, Non-ST elevated myocardial infarction Patient Disposition: Admitted As Inpatient Print Language: Nepalese
[2024-03-22 05:59] LABS: Hematocrit 43.9 % (42.0-52.0); Hemoglobin 16.2 g/dl (14.0-18.0); Mean Corpuscular HGB Conc 36.9 g/dl (31.0-36.0); Mean Corpuscular Hemoglobin 32.2 pg (27.0-33.0); Mean Corpuscular Volume 87.3 fL (80.0-98.0); Mean Platelet Volume 9.8 fL (9.4-12.4); Platelet Count 254 X10*3/uL (160-400); Red Blood Count 5.03 X10*6/uL (4.60-5.80); Red Cell Distribution Width 12.3 % (11.0-16.0); White Blood Count 10.3 X10*3/uL (4.8-10.8)
[2024-03-22] MEDS: Nitroglycerin 2 % Oint 1 GM Packet 1 INCH TRANSDERMA (06:03)
[2024-03-22 06:06] LABS: INTERNATIONAL NORM RATIO 0.8 (0.9-1.1); Prothrombin Time 10.3 SEC (11.1-13.3)
[2024-03-22 06:09] LABS: PTT Heparin Drip 30.2 SEC (53-77.9)
[2024-03-22] MEDS: Heparin Sodium,Porcine/1/2NS 25,000 UNIT/250 ML IV.SOLN 10 UNIT IVCONT (06:46)
--- NOTE | 2024-03-22 06:50 | MHC.EDTECH ---
0600 ROUNDING DONE ,VITALS TAKEN,900 ML EMPTY FROM URINAL ,PT BELONGINGS LIST DONE .
[2024-03-22] MEDS: Heparin Sodium,Porcine 5,000 UNIT/ML VIAL 4000 UNIT IVPUSH (06:52)
--- NOTE | 2024-03-22 07:00 | CA_ITS ---
Transthoracic Echocardiogram Patient (Last, First, Middle): Richie Mcclendon Daniel Gender: Male Date of : 1990 Age: 33 Procedure Date: 03/22/2024 Procedure Type: Transthoracic Echocardiogram Location: ER Height: 177.8 cm Weight: 103.42 kg BSA: 2.21 m2 Heart Rate: 66 bpm BP: 129 / 69 mmHg Assembler Mechanical Ordnance: SB Referring MD: Mino Fields MD Symptoms: nstemi Study Quality: Adequate ECG Rhythm: Sinus Conclusions: - Normal left ventricular cavity size. There is mildly increased left ventricular wall thickness. The left ventricular systolic function is low normal. The visually estimated ejection fraction is between 50-55%. - E/E prime ratio is between 8 and 15 consistent with indeterminate filling pressures. There is severe septal asymmetric hypertrophy. - The basal inferior segment is hypokinetic. - Normal right ventricular cavity size and systolic function. - There is mild dilatation of the ascending aorta measuring 3.50 cm. Findings Procedure Information Contrast agent, definity, is being given per protocol without apparent complications. Left Ventricle Normal left ventricular cavity size. There is mildly increased left ventricular wall thickness. The left ventricular systolic function is low normal. The visually estimated ejection fraction is between 50-55%. There is evidence of regional wall motion abnormalities. Abnormal diastolic function is noted. Spectral Doppler is indicative of a pseudonormal filling pattern. E/E prime ratio is between 8 and 15 consistent with indeterminate filling pressures. There is severe septal asymmetric hypertrophy. Wall Motion Rest Echo Findings The basal inferior segment is hypokinetic. Right Ventricle Normal right ventricular cavity size and systolic function. Atria The left atrium is normal in size. The right atrium is normal in size. Aortic Valve There is no aortic valve stenosis. There is no aortic valve regurgitation. Mitral Valve Normal mitral valve structure and function. There is trace mitral valve regurgitation. There is no mitral valve stenosis. Pulmonic Valve The pulmonic valve is normal. There is trace pulmonic valve regurgitation. Great Vessels There is mild dilatation of the ascending aorta measuring 3.50 cm. Prior Study Comparison No prior study available for comparison. Measurements 2D Linear Measurements IVSd: 1.98 0.6-0.9/0.6-1.0 cm LVIDd: 6.01 3.9-5.3/4.2-5.9 cm LVIDd Index: 2.72 2.4-3.2/2.2-3.1 cm/m2 LVIDs: 4.73 2.0-3.6 cm LVPWd: 1.09 0.7-1.1 cm LV Mass: 552.79 67-162/88-224 g LV Mass Index: 250.13 43-95/49-115 g/m2 LVOT Diam: 2.30 3.0+(-)1.3 cm 2D Systolic Function EF 4C: 60.50 >55% EF 2C: 42.50 >55% EF BiP: 49.60 >55% Mitral Valve MV Pk E: 0.71 MV PK A: 0.63 MV Decel Time: 166.00 E/A: 1.10 E'Lateral: 4.79 E'Medial: 5.44 E/E' Med: 13.10 E/E' Lat: 14.80 PHT: 49.00 MVA PHT: 4.49 Decel [place]: 4.27 Aortic Valve AoV Pk Gentry: 1.56 AoV Pk Grad: 10.00 TRIP: 2.69 LVOT LVOT Pk Gentry: 1.01 LVOT Mn Gentry: 0.71 LVOT VTI: 0.17 LVOT Pk Grad: 4.00 LVOT Mn Grad: 2.00 LVOT Diam: 2.30 LVOT Area: 4.15 Diastolic Function MV Pk E: 0.71 MV Pk A: 0.63 E/A: 1.10 E'Medial: 5.44 E/E' Med: 13.10 E' Laterial: 4.79 E/E' Lat: 14.80 Right Ventricle TVS' Gentry: 11.30 Tricuspid Valve RA Press: 3.00 Great Vessels Aorta Sinus of Valsalva: 3.50 2.0-3.5 cm Ao Asc: 3.50 2.1-3.4 cm Pulmonary Veins Pulm Vein S/D 1.10 Pulmonary Valve PV Pk Gentry: 0.94 Peak PV Grad: 4.00 Updated in Other Vendor System with Status of Final Mino Fields MD electronically signed on 03/22/2024 5:48:24 PM with status of Final
[2024-03-22 07:03] LABS: Amphetamine Screen Urine Not Detected (Not Detect); Barbiturates, Urine Not Detected (Not Detect); Benzodiazepines Screen Urine Not Detected (Not Detect); Buprenorphine Scr Positive (Not Detect); Cannabinoid Screen Urine POSITIVE (Not Detect); Cocaine Screen Urine Not Detected (Not Detect); Fentanyl, urine POSITIVE (Not Detect); Methadone Screen, Urine Not Detected (Not Detect); Opiate Screen Urine Not Detected (Not Detect); Oxycodone Screen Urine Not Detected (Not Detect); Phencyclidine Screen Urine Not Detected (Not Detect)
--- NOTE | 2024-03-22 08:12 | MHC.EDTECH ---
Patient states he is having chest pain , he states he is also having chest pain where the patch is located on his chest . I informed the RN .
--- NOTE | 2024-03-22 08:35 | PC.NURSE ---
this nurse took over pt care at 7am, pt a&ox3, iv heparin running per order, ptt has been ordered by prior nurse, pt has c/o mid sternal chest pain 03/10- provider was notified as pt wants to be medicated for the pain. pt also asking for suboxone which this nurse called pharmacy to verify it as he was discharged yesterday- pharmacy verified from the inpt order yesterday, this nurse spoke with provider about ordering it. day shift provider now in room speaking with patient, monitoring engineer intact- sinus clara, vitals otherwise stable, will continue with plan of care
[2024-03-22] MEDS: Buprenorphine/Naloxone 2/0.5mg FILM 1 FILM SUBLINGUAL (09:34)
--- NOTE | 2024-03-22 09:38 | PM.CNCAR ---
History of Present Illness History of Present Illness Date of Service: 03/22/24 Requesting physician: Juancarlos Grady Chief complaint: CHEST PAIN, elevated troponin Narrative: [age] year gentleman who has background history of polysubstance abuse including cocaine who recently was at the inpatient psych facility at [facility] in went home. He has started having chest pain last night around 09:00 o'clock and had persistent discomfort when he came to the emergency department. In the ER he has high sensitive troponin level which peaked at 95.9. ECG did not show any significant abnormalities. He has been getting persistent chest discomfort and we have been asked to assess him. He is describing a sharp sensation in the chest which is worse with breathing and movement. He also has diffuse hyperesthesia over the chest and anywhere you touch on the chest is tender. His drug screen is not showing cocaine but is showing buprenorphine and fentanyl positive along with marijuana. [facility] Past Medical History Medical History Patient denies medical problems Social History Social History Household Members: Spouse and Family Household Members Other:: , 2 sons, 3 daughters and 1 granddaughter Housing: House Do you presently have visiting nurse or other home services: No Alcohol intake: current Alcohol intake frequency: does not drink Alcohol type: beer Patient Tobacco Use Status: Current everyday Tobacco user Tobacco use type: Cigarette Cigarette Packs Per Day: 1 Cigarettes Per Day: 20.0 Years Smoked: 15 Smoked in Last 30 Days: No Second Hand Smoke Exposure: Yes (people who smoke around him) Use of substances other than those prescribed or required for medical reasons: Yes Substance Use Type: Crack/Cocaine and Marijuana Advance Directives: No Advance Directives Information Provided: Yes service: No Sexual orientation: Straight/Heterosexual Meds Allergies Allergy/AdvReac Type Severity Reaction Status Date / Time No Known Allergies Allergy Verified 03/22/24 02:12 Active Medications: Current Medications Heparin Sodium (Porcine) (Heparin Sodium,Porcine 5,000 Unit/Ml Vial) 4,100 unit 40 unit/kg (4100 unit) IVPUSH PROTOCOL BOLUS PRN; Protocol PRN Reason: 40 unit/kg - Heparin Protocol Heparin Sodium (Porcine) (Heparin Sodium,Porcine 5,000 Unit/Ml Vial) 8,300 unit 80 unit/kg (8300 unit) IVPUSH PROTOCOL BOLUS PRN; Protocol PRN Reason: 80 unit/kg - Heparin Protocol Heparin Sodium/Sodium Chloride (Heparin Sodium,Porcine/1/2ns) 25,000 unit in 250 mls @ 0 mls/hr IVCONT .Q0M MERARY; Protocol Last Admin: 03/22/24 06:46 Dose: 9.65 units/kg/hr, 10 mls/hr Nitroglycerin (Nitroglycerin 0.4 Mg Tab.Subl) 0.4 mg SUBLINGUAL Q5MX3 PRN PRN Reason: Chest Pain Last Admin: 03/22/24 03:42 Dose: 0.4 mg Home Medications ?Medication ?Instructions ?Recorded ?Confirmed ?Last Taken ?Type cyclobenzaprine 5 mg tablet 10 mg PO TID PRN Muscle Spasm 03/14/24 03/14/24 Unknown History buprenorphine 2 mg-naloxone 0.5 mg 1 film sublingual BID@0900,1700 03/22/24 03/22/24 03/21/24 History sublingual film (Suboxone) Physical Exam Vital Signs: Vital Signs: Last Vital Signs Temp 98.0 F 03/22/24 08:30 Pulse 76 03/22/24 08:30 Resp 16 03/22/24 08:30 BP 127/77 03/22/24 08:30 Pulse Ox 98 03/22/24 08:30 O2 Del Method Room Air 03/22/24 08:30 BMI result Body Mass Index 32.8 GENERAL APPEARANCE: Appears distressed due to pain. Chest wall tenderness all over. NECK: no carotid bruit, no jugular venous distention. SKIN: no suspicious lesions, warm and dry. HEART: no murmurs, regular rate and rhythm. LUNGS: clear to auscultation bilaterally. ABDOMEN: soft, nontender. EXTREMITIES: no edema. PERIPHERAL PULSES: equal. NEUROLOGIC: No gross deficits, AAO X 3 Objective Labs and Meds 03/22/24 05:54 03/22/24 02:24 Lab results: Laboratory Results - last 24 hr 03/22/24 03/22/24 03/22/24 02:24 04:25 05:54 WBC 9.9 10.3 RBC 5.20 5.03 Hgb 16.7 16.2 Hct 45.5 43.9 MCV 87.5 87.3 MCH 32.1 32.2 MCHC 36.7 H 36.9 H RDW 12.1 12.3 Plt Count 261 254 MPV 10.0 9.8 Immature Gran % (Auto) 0.1 Neut % (Auto) 58.4 Lymph % (Auto) 33.3 [place] % (Auto) 6.1 Eos % (Auto) 1.5 Baso % (Auto) 0.6 Lymph # (Auto) 3.3 [place] # (Auto) 0.6 Eos # (Auto) 0.2 Baso # (Auto) 0.1 Abs Immat Gran (auto) 0.01 Absolute Neuts (auto) 5.8 Absolute Nucleated RBC 0.000 0.000 Nucleated RBC % (auto) 0.0 0.0 PT 10.3 L INR 0.8 L aPTT Heparin Protocol 30.2 L Sodium 138 Potassium 3.2 L Chloride 101 Carbon Dioxide 21 L Anion Gap 19 BUN 17 H Creatinine 1.39 Estim Creat Clear Calc 85.9 Estimated GFR 58 Random Glucose 158 H Calcium 9.9 Total Bilirubin 0.2 AST 79 H ALT 148 H Alkaline Phosphatase 95 Troponin I High Sens 39.1 H D 95.9 H D Total Protein 7.9 Albumin 4.5 Urine Opiates Screen Ur Buprenorphine Scrn Ur Oxycodone Screen Urine Methadone Screen Urine Fentanyl Screen Ur Barbiturates Screen Ur Phencyclidine Scrn Ur Amphetamines Screen U Benzodiazepines Scrn Urine Cocaine Screen U Marijuana (THC) Screen 03/22/24 06:43 WBC RBC Hgb Hct MCV MCH MCHC RDW Plt Count MPV Immature Gran % (Auto) Neut % (Auto) Lymph % (Auto) [place] % (Auto) Eos % (Auto) Baso % (Auto) Lymph # (Auto) [place] # (Auto) Eos # (Auto) Baso # (Auto) Abs Immat Gran (auto) Absolute Neuts (auto) Absolute Nucleated RBC Nucleated RBC % (auto) PT INR aPTT Heparin Protocol Sodium Potassium Chloride Carbon Dioxide Anion Gap BUN Creatinine Estim Creat Clear Calc Estimated GFR Random Glucose Calcium Total Bilirubin AST ALT Alkaline Phosphatase Troponin I High Sens Total Protein Albumin Urine Opiates Screen Not Detected Ur Buprenorphine Scrn Positive H Ur Oxycodone Screen Not Detected Urine Methadone Screen Not Detected Urine Fentanyl Screen POSITIVE H Ur Barbiturates Screen Not Detected Ur Phencyclidine Scrn Not Detected Ur Amphetamines Screen Not Detected U Benzodiazepines Scrn Not Detected Urine Cocaine Screen Not Detected U Marijuana (THC) Screen POSITIVE H Imaging Radiologist's impression: Impressions Chest X-Ray 03/22/24 02:48 IMPRESSION: Low lung volumes; otherwise, normal chest. Electronically signed by: Gerber Arita MD 03/22/2024 03:21 AM EDT RP Assessment and Plan (1) Non-ST elevated myocardial infarction: Status: Acute Plan [age] year gentleman with polysubstance abuse who recently was at [facility] inpatient psych facility and was sent home with Suboxone now presenting with chest discomfort. He has background of hypertension. Blood pressure was elevated on admission. His chest pain is reproducible and quite atypical. EKGs not showing any obvious changes. We performed a bedside echocardiography which showed normal LVEF but his basal inferior wall as akinetic. I have explained this to the patient that these changes can be a byproduct of previous cocaine use but given the fact that he has ongoing chest discomfort and has wall motion abnormality along with mild troponin elevation-we need clarity about the diagnosis. After discussion we have decided to do a diagnostic angiogram. We will transfer to [facility] on heparin drip and do a diagnostic angiogram. If that showed any coronary disease that it will be treated. If it shows any evidence of coronary vasospasm then would start him on amlodipine. He has some atypical reproducible pain which I think is clearly noncardiac in origin and may need symptomatic treatment. Thank you for allowing me to participate in the care of your patient. Please feel free to contact me if you have any questions. Procedures Date of Service Date of Service: 03/22/24
--- NOTE | 2024-03-22 09:48 | PC.NURSE ---
pt medicated per order, lasting machine operator bed at bedside seeing patient
--- NOTE | 2024-03-22 10:19 | PC.NURSE ---
bedside echo being performed will medicated after it has been completed
--- NOTE | 2024-03-22 10:32 | PC.NURSE ---
report given to shreya coyle.
[2024-03-22] MEDS: Morphine Sulfate 4 MG/ML CARTRIDGE IVPUSH (10:45)
== END 2024-03-22 10:53 | disposition short-term general hospital (02) ==
PROVIDERS: Emergency Medicine; Emergency Provider Emergency Medicine
DX: I21.4 Non-ST elevation (NSTEMI) myocardial infarction (principal); R07.9 Chest pain, unspecified; F14.20 Cocaine dependence, uncomplicated; F11.20 Opioid dependence, uncomplicated; Z79.899 Other long term (current) drug therapy; F17.210 Nicotine dependence, cigarettes, uncomplicated
CPT/HCPCS: 36415; 71045; 80053; 80307; 84484; 85025; 85027; 85610; 85730; 93005; 93306; 96374; 96375; 99285; J1644; J1885; J2270; Q9957

== ENCOUNTER → 2024-03-22 03:08 | Outpatient (BNV) | payer MEDICAID, SELFPAY | PROVIDERS: Emergency Provider Emergency Medicine; Visit Provider Internal Medicine Cardiovascular Disease | DX: I21.4 Non-ST elevation (NSTEMI) myocardial infarction (principal) | CPT/HCPCS: 93306; 99285 ==

== ENCOUNTER → 2024-03-22 23:59 | Outpatient (BNV) | payer MEDICAID, SELFPAY | PROVIDERS: Visit Provider Internal Medicine Cardiovascular Disease | DX: I21.4 Non-ST elevation (NSTEMI) myocardial infarction (principal) | CPT/HCPCS: 93454; 99152 ==

== ENCOUNTER 2024-03-28 12:58 | Outpatient (AMB) | payer OTHER, SELFPAY ==
[2024-03-28 13:16] VITALS: PULSE 75; RESP 19; O2SAT 95
--- NOTE | 2024-03-28 13:16 | A.OFFVISCC_ITS ---
Vital Signs 03/28/24 13:16 Blood Pressure Location Rt radial Position Sitting Respiration 19 Pulse 75 Pulse Source Pulse Oximeter Pulse Oximetry (%) 95 Oxygen Delivery Method Room Air Intake Visit Reasons: MAT office Allergies No Known Allergies Allergy (Verified 03/30/24 14:26) HPI HPI MAT office: Details: Patient presents for intake and continuation of treatment for OUD Inititated on buprenorphine during recent psychiatric admission notes reviewed Recently discharged from [facility] from cardiac unit While there his dose was increased to 4mg BID started on new medications --will bring to next appt Has been taking suboxone 4mg at 9am and 9pm difficulty sleeping --discussed taking evening dose earlier [facility] Medical History (Updated 03/30/24 @ 15:31 by Lisa Thompson NP-C) Non-ST elevated myocardial infarction Depression Active substance abuse Patient denies medical problems Social History Household Members: Spouse and Family Household Members Other:: , 2 sons, 3 daughters and 1 granddaughter Housing: House Do you presently have visiting nurse or other home services: No Alcohol intake: current Alcohol intake frequency: does not drink Alcohol type: beer Patient Tobacco Use Status: Current everyday Tobacco user Tobacco use type: Cigarette Cigarette Packs Per Day: 1 Cigarettes Per Day: 20.0 Years Smoked: 15 Second Hand Smoke Exposure: Yes (people who smoke around him) Substance Use Type: Crack/Cocaine and Marijuana service: No Sexual orientation: Straight/Heterosexual Review of Systems Const Reports as per HPI Physical Exam Vital Signs: Last Vital Signs Pulse 75 03/28/24 13:16 Resp 19 03/28/24 13:16 Pulse Ox 95 03/28/24 13:16 Oxygen Delivery Method Room Air 03/28/24 13:16 Const General: cooperative and anxious Nutritional Appearance: average body habitus Orientation/consciousness: patient oriented x3 Limitations: no limitations Neuro General: patient oriented x3 Assessment & Plan Assessment & Plan (1) Opioid use disorder, moderate, dependence: Code(s): F11.20 - Opioid dependence, uncomplicated Category: Medical Plan: * continue subxoxone at current dose * follow up one week * miralax for constipation Medications: New buprenorphine-naloxone 4-1 mg (Suboxone) 1 film sublingual BID 60 ea 0RF polyethylene glycol 3350 (Miralax) 17 grams PO DAILY PRN 238 grams 0RF constipation
== END 2024-03-28 13:52 | disposition home or self-care (01) ==
PROVIDERS: Visit Provider Nurse Practitioner Psychiatric/Mental Health
DX: F11.20 Opioid dependence, uncomplicated (principal)
CPT/HCPCS: 99214

== ENCOUNTER → 2024-03-28 12:58 | Outpatient (BNVA) | payer OTHER, SELFPAY | PROVIDERS: Visit Provider Nurse Practitioner Psychiatric/Mental Health | DX: F11.20 Opioid dependence, uncomplicated (principal); Z51.81 Encounter for therapeutic drug level monitoring | CPT/HCPCS: 99212 ==

== ENCOUNTER 2024-03-30 14:21 | Outpatient (AMB) | payer MEDICAID, SELFPAY ==
[2024-03-30 14:24] VITALS: BP 128/60; PULSE 77; BMI 34.2
--- NOTE | 2024-03-30 14:24 | A.OFFVIS_ITS ---
Vital Signs 03/30/24 14:24 Height 5 ft 10 in Weight 238 lb 1.588 oz BMI 34.2 BP 128/60 Blood Pressure Location Rt brachial Position Sitting Pulse 77 Pulse Source Monitor Intake Visit Reasons: f/u cardiac cath Product Safety And Standards Engineer Required: No Coat Finisher: Coat Finisher Present Allergies No Known Allergies Allergy (Verified 03/30/24 14:26) Medication List - Last Reconciled 03/30/24 by Lisa Thompson NP-C amlodipine 5 mg PO DAILY aspirin (Adult Aspirin Regimen) 81 mg PO DAILY buprenorphine-naloxone 2-0.5 mg (Suboxone) 1 film sublingual BID@0900,1700 buprenorphine-naloxone 4-1 mg (Suboxone) 1 film sublingual BID cyclobenzaprine 10 mg PO TID PRN hydrochlorothiazide 25 mg See Protocol PO DAILY 30 days hydroxyzine HCl 25 mg PO BID PRN 30 days ibuprofen 600 mg PO Q8H PRN isosorbide mononitrate ER 30 mg PO DAILY polyethylene glycol 3350 (Miralax) 17 grams PO DAILY PRN trazodone 50 mg PO BEDTIME PRN 30 days HPI HPI f/u cardiac cath: Details: Richie is a 33-year-old male with past medical history of opioid and cocaine use who recently presented to [facility] with chest discomfort and ruled in for NSTEMI. He was transferred to [facility] where he had cardiac catheterization showing normal coronary arteries. He was thought to have coronary spasm and was started on amlodipine and isosorbide. Today he requested to be seen for reports of recurrent episodes of chest discomfort. He describes that he has discomfort across his left chest and intermittent sharp stabbing pains that occur randomly. He says this has been ongoing repeatedly during the day and worse at night since the time of his hospitalization. He describes that when he gets the severe stabbing he will get an erection that lasts while the stabbing persists then it goes down. His activity has been limited by fear of having another heart attack. He tells me he completely stopped all substance abuse and has not had any recent cocaine. He denies shortness of breath, PND, orthopnea or edema. No lightheadedness, presyncope, syncope. Taking meds as directed. Significant other is present. [facility] Medical History (Updated 03/30/24 @ 15:31 by Lisa Thompson, JAVI-C) Non-ST elevated myocardial infarction Depression Active substance abuse Patient denies medical problems Social History Household Members: Spouse and Family Household Members Other:: , 2 sons, 3 daughters and 1 granddaughter Housing: House Do you presently have visiting nurse or other home services: No Alcohol intake: current Alcohol intake frequency: does not drink Alcohol type: beer Patient Tobacco Use Status: Current everyday Tobacco user Tobacco use type: Cigarette Cigarette Packs Per Day: 1 Cigarettes Per Day: 20.0 Years Smoked: 15 Second Hand Smoke Exposure: Yes (people who smoke around him) Substance Use Type: Crack/Cocaine and Marijuana service: No Sexual orientation: Straight/Heterosexual Review of Systems Const All systems reviewed & are unremarkable except as noted in HPI and below ENT Denies dizziness Card Reports chest pain, Reports chest pain at rest, Denies chest pain with activity, Denies rapid heart rate, Denies pedal edema, Denies edema, Denies leg edema, Denies lightheadedness, Denies palpitations, Denies dyspnea, Denies dyspnea on exertion and Denies orthopnea Resp Denies cough, Denies dyspnea and Denies dyspnea on exertion GI Denies hematochezia and Denies change in stool character Musc Denies abnormal gait, Denies limited range of motion, Denies muscle cramps, Denies muscle weakness, Denies numbness, Denies radiating pain into limb, Denies stiffness and Denies tingling Neuro Denies abnormal gait, Denies dizziness, Denies numbness and Denies tingling Endo Denies palpitations Physical Exam Vital Signs: Last Vital Signs Pulse 77 03/30/24 14:24 BP 128/60 03/30/24 14:24 BMI result Body Mass Index 34.2 Const General: cooperative, healthy appearing and no acute distress Orientation/consciousness: patient oriented x3 Neck Neck: Yes normal visual inspection Chest Other: Tenderness to palpation along left chest wall with facial grimace and pulling away Resp Effort & Inspection: normal respiratory effort Auscultation: clear to auscultation bilaterally, no rales, no rhonchi and no wheezes Cardio Jugular venous distension: no JVD Rate: regular rate Rhythm: regular rhythm Heart sounds: S1 normal heart sound present, S2 normal heart sound present, no murmurs and no rubs Neuro General: patient oriented x3 Extrem General: Yes normal to inspection, No no pedal edema and No calf tenderness Psych Appearance: grossly normal Mental Status: mental status grossly normal Speech and movement: Normal speech and movement present Office Procedures EKG Details: Today, read by me, normal sinus rhythm, T-wave inversion lead 3, nonspecific T- wave abnormalities AVF, V5 and V6, rate 77, QTC 461 millisecond [id number], Complete Assessment & Plan Assessment & Plan (1) Non-ST elevated myocardial infarction: Code(s): I21.4 - Non-ST elevation (NSTEMI) myocardial infarction Category: Medical Plan: Presented to [facility] on 03/22 with report of sharp anterior chest discomfort. He ruled in for NSTEMI with troponins rising to 95.9. His echocardiogram showed EF 50-55%, severe septal asymmetric hypertrophy, basal inferior hypokinesis. He was started on medical management transferred to [facility] where he underwent cardiac catheterization showing only minimal irregularities in the RCA. There was some sluggish flow noted to the RCA suggesting coronary vasospasm. Was started on amlodipine 5 mg daily and isosorbide 30 mg daily. His nifedipine had been stopped. Today he reports episodes of chest discomfort repeatedly throughout each day and more at night since that time. He said it is similar to his initial chest discomfort however not the same. He now has tenderness to his left chest region and grimaces to my palpation. EKG done today is showing normal sinus rhythm with nonspecific T-wave abnormalities, rate 77. His symptom is very atypical for cardiac chest pain. Spent 20 minutes with him going over cardiac findings, fully assessing his current symptoms. He tells me he has stopped all substance use and has not had any cocaine since his hospital discharge. He has been compliant with his medications. There is no indication that he is having repeat coronary spasm. Discussed case with Dr. Hendrickson. Will have him stop isosorbide. Continue amlodipine. Will start in cardiac rehab. Cardiology follow-up 3-4 months, sooner if needed. Emergency care if ever needed for symptoms. (2) S/P cardiac catheterization: Comment: 03/22/2024 left main, lad, left circumflex normal RCA minimal irregularities, sluggish flow Code(s): Z98.890 - Other specified postprocedural states Category: Surgical Plan: Right radial catheterization site well healed. Easily palpable radial pulse, right hand assessment normal (3) Non-cardiac chest pain: Code(s): R07.89 - Other chest pain Category: Medical Plan: Noncardiac chest pain as described above. He describes generalized discomfort, tenderness to the left anterior chest and random sharp pains. He will get an erection when he has the sharp pain. Unclear how this relates. Instructed him to take ibuprofen as needed, use heat pack or ice to help relieve symptom. Further discuss with PCP if needed. (4) Cocaine use disorder, moderate, dependence: Code(s): F14.20 - Cocaine dependence, uncomplicated Category: Medical Plan: Patient reports that he stopped all illicit substance use. Plan Time spent on chart review, documentation, interview, assessment, education Orders: Orders Cardiac Rehab Today I21.4 - Non-ST elevation (NSTEMI) myocardial infarction Coding Level of Care Code Est Pt Level 4 (29037) Diagnoses Non-ST elevated myocardial infarction I21.4 S/P cardiac catheterization Z98.890 Non-cardiac chest pain R07.89 Cocaine use disorder, moderate, dependence F14.20 CPT Codes EKG - CPT: 74047-[id number], Complete ([id number]) Time Spent (min) 36
== END 2024-03-30 15:24 | disposition home or self-care (01) ==
PROVIDERS: Visit Provider Nurse Practitioner Family
DX: I21.4 Non-ST elevation (NSTEMI) myocardial infarction (principal); Z98.890 Other specified postprocedural states; R07.89 Other chest pain; F14.20 Cocaine dependence, uncomplicated
CPT/HCPCS: 93010; 99214

== ENCOUNTER → 2024-03-30 14:21 | Outpatient (BNVA) | payer OTHER, SELFPAY | PROVIDERS: Visit Provider Nurse Practitioner Family | DX: I21.4 Non-ST elevation (NSTEMI) myocardial infarction (principal); R07.89 Other chest pain; F14.20 Cocaine dependence, uncomplicated; Z98.890 Other specified postprocedural states | CPT/HCPCS: 93005; 99212 ==

== ENCOUNTER 2024-04-04 13:02 | Outpatient (AMB) | payer OTHER, SELFPAY ==
--- NOTE | 2024-04-04 13:02 | A.OFFVISCC_ITS ---
Intake Visit Reasons: MAT Tele Allergies No Known Allergies Allergy (Verified 03/30/24 14:26) HPI HPI MAT Tele: Details: Patient presents for follow up via telehealth Reports he is doing well with current suboxone dose of 4mg BID Has been following up with cardiology providers --continues to report chest pain Has no theard back from [facility] yet [facility] Medical History (Updated 03/30/24 @ 15:31 by Lisa Thompson NP-C) Non-ST elevated myocardial infarction Depression Active substance abuse Patient denies medical problems Social History Household Members: Spouse and Family Household Members Other:: , 2 sons, 3 daughters and 1 granddaughter Housing: House Do you presently have visiting nurse or other home services: No Alcohol intake: current Alcohol intake frequency: does not drink Alcohol type: beer Patient Tobacco Use Status: Current everyday Tobacco user Tobacco use type: Cigarette Cigarette Packs Per Day: 1 Cigarettes Per Day: 20.0 Years Smoked: 15 Second Hand Smoke Exposure: Yes (people who smoke around him) Substance Use Type: Crack/Cocaine and Marijuana service: No Sexual orientation: Straight/Heterosexual Review of Systems Const Reports as per HPI Telehealth Telehealth Telehealth Platform: Telephone Location of provider rendering services: practice address Location of patient: other Patient Identification confirmed using: Name, : Yes Telehealth method: voice only Patient verbally consented to treatment: Yes Patient verbally consented to billing insurance company: Yes Minutes spent on Phone/Video with Pt.: 15 Assessment & Plan Assessment & Plan (1) Opioid use disorder, moderate, dependence: Code(s): F11.20 - Opioid dependence, uncomplicated Category: Medical Plan: * continue subxoone at current dose * follow up one week with [facility]
== END 2024-04-04 13:13 | disposition home or self-care (01) ==
PROVIDERS: Visit Provider Nurse Practitioner Psychiatric/Mental Health
DX: F11.20 Opioid dependence, uncomplicated (principal)
CPT/HCPCS: 99213

== ENCOUNTER → 2024-04-04 13:02 | Outpatient (BNVA) | payer OTHER, SELFPAY | PROVIDERS: Visit Provider Nurse Practitioner Psychiatric/Mental Health ==

== ENCOUNTER 2024-04-27 11:13 | Outpatient (REF) | payer MEDICAID, SELFPAY ==
[2024-04-27 13:32] LABS: Alanine Aminotransferase 42 U/L (0-40); Albumin Level 4.2 g/dL (3.5-5.0); Alkaline Phosphatase 67 U/L (39-117); Anion Gap 10 (12-20); Aspartate Amino Transferase 28 U/L (5-37); Bilirubin Total 0.6 mg/dL (0.0-1.0); Blood Urea Nitrogen 12 mg/dL (9-16); Calcium 9.1 mg/dL (8.4-10.2); Carbon Dioxide 26 mmol/L (22-29); Chloride 109 mmol/L (96-108); Estimated Glomerular Filt Rate > 60; Glucose Random 103 mg/dL (60-115); Sodium 141 mmol/L (135-145); Total Protein 6.7 g/dL (6.5-8.0)
== END 2024-04-27 11:14 | disposition home or self-care (01) ==
LOC: HO.LAB 11:13
PROVIDERS: Visit Provider Nurse Practitioner Psychiatric/Mental Health
DX: F11.20 Opioid dependence, uncomplicated (principal); Z79.899 Other long term (current) drug therapy
CPT/HCPCS: 36415; 80053; 99212

== ENCOUNTER 2024-04-27 11:13 | Outpatient (AMB) | payer OTHER, SELFPAY ==
--- NOTE | 2024-04-27 11:24 | A.OFFVISCC_ITS ---
Intake Visit Reasons: MAT Visit Allergies No Known Allergies Allergy (Verified 03/30/24 14:26) HPI HPI MAT Visit: Details: Patient presents for follow up recently saw certified ophthalmic technician in [facility] monitor ordered no issues related to recovery or current suboxone dose does note that he feels sore when he does not take it [facility] Medical History (Updated 04/27/24 @ 11:39 by Robina Sofia, CASING COOKER) Non-ST elevated myocardial infarction Depression Active substance abuse Patient denies medical problems Social History Household Members: Spouse and Family Household Members Other:: , 2 sons, 3 daughters and 1 granddaughter Housing: House Do you presently have visiting nurse or other home services: No Alcohol intake: current Alcohol intake frequency: does not drink Alcohol type: beer Patient Tobacco Use Status: Current everyday Tobacco user Tobacco use type: Cigarette Cigarette Packs Per Day: 1 Cigarettes Per Day: 20.0 Years Smoked: 15 Second Hand Smoke Exposure: Yes (people who smoke around him) Substance Use Type: Crack/Cocaine and Marijuana service: No Sexual orientation: Straight/Heterosexual Review of Systems Const Reports as per HPI and Reports no additional complaints Physical Exam Const General: cooperative, healthy appearing, no acute distress, alert and well groomed Assessment & Plan Assessment & Plan (1) Opioid use disorder, moderate, dependence: Code(s): F11.20 - Opioid dependence, uncomplicated Category: Medical Plan: * no change to suboxone dose * follow up 4 weeks Orders: Orders Comprehensive Met. Panel 04/27/24 Z79.899 - Other prison (current) drug therapy Medications: New buprenorphine-naloxone 8-2 mg (Suboxone) 1 film buccal DAILY 30 ea 1RF Refilled buprenorphine-naloxone 4-1 mg (Suboxone) 1 film sublingual BID 60 ea 0RF buprenorphine-naloxone 4-1 mg (Suboxone) 1 film sublingual BID 60 ea 1RF
== END 2024-04-27 13:14 | disposition home or self-care (01) ==
PROVIDERS: Visit Provider Nurse Practitioner Psychiatric/Mental Health
DX: F11.20 Opioid dependence, uncomplicated (principal)
CPT/HCPCS: 99213

== ENCOUNTER 2024-07-19 14:48 | Outpatient (AMB) | payer MEDICAID, SELFPAY ==
[2024-07-19 14:53] VITALS: BP 150/90; PULSE 66; BMI 35.2
--- NOTE | 2024-07-19 14:53 | A.OFFVIS_ITS ---
Vital Signs 07/19/24 14:53 Height 5 ft 10 in Weight 245 lb 2.464 oz BMI 35.2 BP 150/90 H Blood Pressure Location Lt brachial Position Sitting Pulse 66 Pulse Source Monitor Intake Visit Reasons: 4m follow up Intake Note: 4 mth f/up, pt is here with chest pain for about a week. Encoding Clerk Required: No Accompanied by: Self / Same As Patient Allergies No Known Allergies Allergy (Verified 03/30/24 14:26) Medication List - Last Reconciled 07/19/24 by JANENE Toussaint amlodipine 5 mg PO DAILY aspirin (Adult Aspirin Regimen) 81 mg PO DAILY buprenorphine-naloxone 4-1 mg (Suboxone) 1 film sublingual BID buprenorphine-naloxone 8-2 mg (Suboxone) 1 film buccal DAILY cyclobenzaprine 10 mg PO TID PRN hydrochlorothiazide 25 mg See Protocol PO DAILY 30 days hydroxyzine HCl 25 mg PO BID PRN 30 days ibuprofen 600 mg PO Q8H PRN polyethylene glycol 3350 (Miralax) 17 grams PO DAILY PRN trazodone 50 mg PO BEDTIME PRN 30 days HPI HPI 4m follow up: Details: Richie is a 34-year-old male with past medical history of opioid and cocaine use who presented to [facility] 03/2024 with chest discomfort and ruled in for NSTEMI. He was transferred to [facility] where he had cardiac catheterization showing normal coronary arteries. He was thought to have coronary spasm and was started on amlodipine and isosorbide. On follow-up visit he continued to report sharp stabbing pains that were happening repeatedly throughout the day. His EKG was benign. Isosorbide was stopped. He was seen in the [facility] emergency room 04/30/24 with chest discomfort. His EKG, troponin, chest x-ray and EKG were all normal. He signed out AMA prior to having a repeat troponin level drawn. Today he reports that he has not been getting the sharp stabbing pains like he previously reported. He will notice a pressure sensation to the left chest that happens randomly. No pain like what brought him to the emergency room in March. He tells me he has not been using cocaine at all. He has no shortness of breath, PND, orthopnea or edema. No heart palpitations, lightheadedness, presyncope, syncope. He admits to being mostly sedentary. He says he is taking his medications as directed. Significant other is present. [facility] Medical History Non-ST elevated myocardial infarction Depression Active substance abuse Patient denies medical problems Social History Household Members: Spouse and Family Household Members Other:: , 2 sons, 3 daughters and 1 granddaughter Housing: House Do you presently have visiting nurse or other home services: No Alcohol intake: current Alcohol intake frequency: does not drink Alcohol type: beer Patient Tobacco Use Status: Current everyday Tobacco user Tobacco use type: Cigarette Cigarette Packs Per Day: 1 Cigarettes Per Day: 20.0 Years Smoked: 15 Second Hand Smoke Exposure: Yes (people who smoke around him) Substance Use Type: Crack/Cocaine and Marijuana service: No Sexual orientation: Straight/Heterosexual Review of Systems Const All systems reviewed & are unremarkable except as noted in HPI and below Denies chills, Denies fatigue, Denies fever(s), Denies frequent falls, Denies weakness, Denies weight gain and Denies weight loss ENT Denies dizziness Card Reports chest pain, Reports chest pain at rest, Denies chest pain with activity, Denies leg edema, Denies lightheadedness, Denies palpitations, Denies dyspnea and Denies dyspnea on exertion Resp Denies cough, Denies dyspnea and Denies dyspnea on exertion GI Denies hematochezia Musc Denies abnormal gait, Denies muscle weakness, Denies numbness, Denies radiating pain into limb and Denies tingling Neuro Denies abnormal gait, Denies dizziness, Denies frequent falls, Denies numbness, Denies tingling and Denies weakness Endo Denies fatigue and Denies palpitations Physical Exam Vital Signs: Last Vital Signs Pulse 66 07/19/24 14:53 BP 150/90 H 07/19/24 14:53 BMI result Body Mass Index 35.2 Const General: cooperative, healthy appearing and no acute distress Orientation/consciousness: patient oriented x3 Neck Neck: Yes normal visual inspection Chest Other: mild Tenderness to palpation along left chest wall with facial grimace Resp Effort & Inspection: normal respiratory effort Auscultation: clear to auscultation bilaterally, no rales, no rhonchi and no wheezes Cardio Jugular venous distension: no JVD Rate: regular rate Rhythm: regular rhythm Heart sounds: S1 normal heart sound present, S2 normal heart sound present, no murmurs and no rubs Neuro General: patient oriented x3 Extrem General: Yes normal to inspection, No no pedal edema and No calf tenderness Psych Appearance: grossly normal Mental Status: mental status grossly normal Speech and movement: Normal speech and movement present Office Procedures EKG Details: Today, read by me, normal sinus rhythm, can not exclude prior anterior infarct, rate 66, normal HI, QRS and QTC intervals [id number], Complete Assessment & Plan Assessment & Plan (1) Non-ST elevated myocardial infarction: Code(s): I21.4 - Non-ST elevation (NSTEMI) myocardial infarction Category: Medical Plan: [place] [facility] [place] with report of sharp anterior chest discomfort. He ruled in for NSTEMI with troponins rising to 95.9. His echocardiogram showed EF 50-55%, severe septal asymmetric hypertrophy, basal inferior hypokinesis. He was started on medical management transferred to [facility] where he underwent cardiac catheterization showing only minimal irregularities in the RCA. There was some sluggish flow noted to the RCA suggesting coronary vasospasm. Was started on amlodipine 5 mg daily and isosorbide 30 mg daily. On follow-up visit he reported episodes of chest discomfort repeatedly throughout each day and more at night since that time. He was noted to have significant tenderness to the left chest region with palpation. His EKG showed no acute changes. It seems that since that time he was seen in the [facility] emergency room, 04/30/2024 and cardiac testing showed no acute abnormalities. He signed out AMA prior to his 2nd troponin. Today he reports that he has not had recurrent sharp pains like what he was previously reported. He does feel a pressure sensation at times to the left chest region which occurs randomly. He admits to being sedentary. He reports compliance with his amlodipine and denies any recent cocaine use. He tells me he did have a repeat echocardiogram at an office in [place]. Will check the [facility] records to see if this test result is available. His blood pressure is elevated today at 150/90, recheck done by me 154/92. I will have him increase his amlodipine up to 10 mg daily, continue hydrochlorothiazide. Continue to avoid all drug use including cocaine. Cardiology follow-up 6months, sooner if needed. Emergency care if ever needed for symptoms. (2) S/P cardiac catheterization: Comment: 03/22/2024 left main, lad, left circumflex normal RCA minimal irregularities, sluggish flow Code(s): Z98.890 - Other specified postprocedural states Category: Surgical (3) Cocaine use disorder, moderate, dependence: Code(s): F14.20 - Cocaine dependence, uncomplicated Category: Medical Plan: Patient reports that he stopped all illicit substance use. Plan Time spent on chart review, documentation, interview, assessment, education Orders: Orders AMB EKG-In Office Today I21.4 - Non-ST elevation (NSTEMI) myocardial infarction Medications: New amlodipine Dose increase 10 mg PO DAILY 90 tabs 1RF Coding Level of Care Code Est Pt Level 4 (92435) Complex EM visit Add On G2211 Diagnoses Non-ST elevated myocardial infarction I21.4 S/P cardiac catheterization Z98.890 Cocaine use disorder, moderate, dependence F14.20 CPT Codes EKG - CPT: 51004-[id number], Complete ([id number]) Time Spent (min) 36
== END 2024-07-19 15:19 | disposition home or self-care (01) ==
PROVIDERS: Visit Provider Nurse Practitioner Family
DX: I21.4 Non-ST elevation (NSTEMI) myocardial infarction (principal); Z98.890 Other specified postprocedural states; F14.20 Cocaine dependence, uncomplicated; R94.31 Abnormal electrocardiogram [ECG] [EKG]
CPT/HCPCS: 93010; 99214

== ENCOUNTER → 2024-07-19 14:48 | Outpatient (BNVA) | payer OTHER, SELFPAY | PROVIDERS: Visit Provider Nurse Practitioner Family | DX: I21.4 Non-ST elevation (NSTEMI) myocardial infarction (principal); F17.210 Nicotine dependence, cigarettes, uncomplicated; F14.20 Cocaine dependence, uncomplicated; Z98.890 Other specified postprocedural states | CPT/HCPCS: 93005; 99212 ==